=== PATIENT | male | born 1965 | race Caucasian/White ===

== ENCOUNTER 2024-09-23 17:27 | Emergency (ER) | payer BC, SELFPAY ==
[2024-09-23 17:42] VITALS: BP 160/77; PULSE 84; RESP 16; TEMP 36.4; O2SAT 98
--- NOTE | 2024-09-23 18:15 | DI.CT_ITS ---
Exam(s) CT HEAD CERVICAL SPINE WO EXAM: CT HEAD CERVICAL SPINE WO CLINICAL HISTORY: fall biking +HS + helmet +etoh normal neuro exam. TECHNIQUE: Imaging Protocol: Axial computed tomography images with coronal and sagittal reformatted images were created and reviewed COMPARISON: No exams were available for comparison FINDINGS: Head CT Ventricles and Extra axial spaces: Normal in size and morphology for the patient's age. Hemorrhage: None. Cerebral parenchyma: No evidence of mass or acute infarct. Midline shift: None. Brainstem/Cerebellum: Normal. Calvarium: Normal. Visualized Paranasal sinuses/Mastoids: Clear. Soft tissues: Unremarkable. Cervical Spine CT BONES: Vertebral body heights are maintained. Alignment is normal. There is no evidence of acute frac ture. Degenerative disc changes and facet degenerative changes are seen which are most prominent at C5-6 an d C6-7. There prominent anteriorly projecting osteophytes and severe disc space narrowing at these l evels.. SOFT TISSUES: No paraspinal hematoma. The airway appears intact. No pneumothorax is seen at the lung apices. Azygos lobe, normal variant. IMPRESSION: Head CT: No acute abnormality. C-spine CT: Degenerative changes, no acute abnormality. RADIATION DOSE DELIVERED: Total DLP DATA REPOSITORY: All CT scans at this facility are submitted to the National Radiology Data Registry (NRDR) Dose Index Registry (DIR) with the [employer] (ACR). RADIATION OPTIMIZATION: All CT scans at this facility use at least one of these dose optimization te chniques: automated exposure control; mA and/or kV adjustment per patient size (includes targeted exa ms where dose is matched to clinical indication); or iterative reconstruction.
--- NOTE | 2024-09-23 18:17 | ED.GENADUL_ITS ---
Discharge Plan Discharge Details Chief Complaint: Laceration Primary Care Provider: Shabnam,Local ED Provider: Brenda Recio Home Meds and New Rx's Prescriptions: No Action simvastatin 20 mg tablet 20 mg PO QHS [facility] General Mode of arrival: ambulatory . Date/Time Provider Initiated Documentation: 09/23/24 17:46 . Limitations to Documentation: no limitations . Information obtained by: patient . HPI Narrative: 59yo M with HLD presenting for laceration behind ear after fall mountain biking. + helmet. Thinks he struck his head on a tree branch or stick on the ground. No LOC. Bleeding coming from behind ear at the time of the event, has since stopped. Mild headache. No nausea or vomiting. Denies pain or injury elsewhere; no neck pain, chest pain, abdominal pain. No vertigo, numbness, tingling, or weakness. Did drink a beer after the fall. In his usual state of health before this event. Related Data Home Medications ?Medication ?Instructions ?Recorded ?Confirmed simvastatin 20 mg tablet 20 mg PO QHS 09/23/24 09/23/24 Allergies Allergy/AdvReac Type Severity Reaction Status Date / Time No Known Allergies Allergy Unverified 09/23/24 17:40 General Stated Complaint: Laceration GARETH: 4 Review of Systems Narrative: see HPI Exam Narrative Exam Narrative: GENERAL: Alert, no acute distress. SKIN: Warm and well perfused. HEAD: 1cm laceration behind left ear, hemostatic. Facial bones without deformities or tenderness. EYES: PERRL. No scleral icterus or conjunctival injection. Extraocular muscles intact without nystagmus or diplopia. EARS: No hemotympanum. NOSE: No discharge, tenderness, laxity. No nasal septal hematoma. MOUTH: No malocclusion or trismus. Moist mucus membranes without blood. NECK: Trachea midline. No discolorations or edema. No midline tenderness. CV: Regular rate and rhythm, Normal s1 and s2. No murmurs, rubs, or gallops. CHEST: Chest symmetric with respirations. No chest wall tenderness. Lungs are clear to auscultation bilaterally. ABDOMEN: Soft, nondistended, nontender. BACK:. Spine without bony tenderness, no step offs. PELVIC: Pelvis stable, nontender to lateral compression a MSK: No gross deformities or discolorations or lesions. Tolerates full range of motion of extremities without tenderness. NEURO: ? GCS 15.? PERRL.? EOMI.? Fluent speech, no dysarthria. Motor- 5/5 strength symmetric bilateral upper and lower extremities Sensation- ?Intact to light touch and symmetric multiple dermatomes including upper and lower extremities Coordination- No dysmetria on finger to nose Gait/station: ?Normal stance.? No truncal ataxia. Steady gait with equal normal steps CRANIAL NERVES: II: Pupils equal and reactive, III, IV, : EOM intact, no gaze preference or deviation, no nystagmus. V: normal sensation in V1, V2, and V3 segments bilaterally VII: no asymmetry, no nasolabial fold flattening VIII: normal hearing to speech IX, X: normal palatal elevation, no uvular deviation XI: 5/5 head turn and 5/5 shoulder shrug bilaterally XII: midline tongue protrusion Course Vital Signs Vital signs: Vital Signs Temperature 36.4 C L 09/23/24 17:42 Pulse 84 09/23/24 17:42 Respiratory Rate 16 09/23/24 17:42 Blood Pressure 160/77 H 09/23/24 17:42 Pulse Oximetry 98 09/23/24 17:42 Temperature 36.4 C L 09/23/24 17:42 Temperature Source Oral 09/23/24 17:42 Pulse 84 09/23/24 17:42 Respiratory Rate 16 09/23/24 17:42 Blood Pressure 160/77 H 09/23/24 17:42 Blood Pressure Position Sitting 09/23/24 17:42 Pulse Oximetry 98 09/23/24 17:42 Oxygen Delivery Method Room Air 09/23/24 17:42 Oxygen Flow Rate 0 09/23/24 17:42 Pain Level 6 09/23/24 17:42 Procedure Laceration Laceration 1: Date of Procedure: 09/23/24 Time of procedure: 19:15 Provider that performed the procedure: Brenda Recio Standard Time Out Performed: Yes Patient Consented: Verbally Site: scalp Side (If applicable): left Description: linear Depth: simple, single layer Local anesthetic: Lidocaine 2% Pre-repair:: wound explored, irrigated extensively and deep structures intact Skin layer closed with: nylon Suture size: 5-0 Number of sutures:: 4 Technique: simple, interrupted Complications: None Medical Decision Making 59yo M with HLD presenting for laceration behind ear after fall mountain biking. + helmet. Thinks he struck his head on a tree branch or stick on the ground. 1cm hemostatic laceration just behind left ear involving skin. No other significant traumatic findings on exam. Normal neurologic exam. Low suspicion for ICH or c-spine injury, however given that he has had ETOH prior to arrival will get ct head and c-spine. Laceration thoroughly irrigated and repaired. CT head and cspine independently reviewed; no ICH or displaced fractures on my view; radiology reads below with no acute findings. Discharged home; discharge instructions and return precautions were reviewed with patient who verbalized understanding. He is clinically sober. All questions were answered and he is in full agreement with the plan. Imaging Data Radiologic Study: Imaging: CT Scan Radiologist's impression: head: IMPRESSION: no acute intracranial findings c-spine: IMPRESSION: no cervical spinal fracture Quality:SDOH Health Related Social Needs: No Data to Display [facility] Social History Smoking/Tobacco Use Status: Never Smoking risk assessment performed?: Yes Alcohol Intake: current Alcohol Intake frequency: holidays/special occasions only Alcohol type: beer Drug use: Never Substance use type: does not use Housing: house Do you feel safe at home: Yes Do you feel safe in your relationship?: Yes
[2024-09-23] MEDS: Lidocaine 2% Multi-Dose 20 ML VIAL (18:54)
--- OUTSIDE RECORDS SUMMARY | 2024-09-23 19:03 | XMS_ITS | Encounter Summary ---
Author Organization [facility] Address [address] [place] [address] Care Team Providers Care Administrative Library Assistant Name Role Phone Poc, Not Required Pcp Or Unavailable Unavail able Jaimee Espitia Md Primary Care Provider [phone] Encounter Details Date Type Department Care Team ([facility] Contact Info) Description 05/31/2024 Email Encounter [facility] Campaign, Provider USED CAMPAIGNS FOR SYSTEM DEFINITIONS NON-PROVIDERS NON-PROVIDERS Get Your Flu Vaccine Now Social History Tobacco Use Types Packs/Day Years Used Date Smoking Tobacco: Never Smokeless Tobacco: Never Alcohol Use Standard Drinks/Week Comments Yes 0 (1 standard drink = 0.6 oz pur e alcohol) 3-4 per week Hunger Vital Sign Answer Date Recorded Within the past 12 months, y ou worried that your food would run out before you got the money to buy more. Never true 03/28/20 24 Within the past 12 months, t he food you bought just didn't last and you didn't have money to get more. Never true 03/28/2024 PRAPARE - Transportation Answer Date Re corded In the past 12 months, has l ack of transportation kept you from medical appointments or from getting medications? No 03/16 In the past 12 months, has l ack of transportation kept you from meetings, work, or from getting things needed for daily living? No 03/28/2024 Depression Answer Date Recorded Last PHQ-2 2 03/31/2024 Last PHQ-9 Not on file 03/31/2024 Suicidal Ideation/Self Harm Risk Not on file 03/31/2024 Housing Stability Answer Date Recorded What is your housing situation today? Has vikram matson 03/28/2024 Are you worried about losing your housing? No 03/28/[address] you li ve. Do you have problem with any of the following? (Choose all that apply) None of the Above Request Assistance Answer Date Recorded Would you like to discuss an y of the needs you identified in this survey with a member of your care team? No 2023 Urgent Assistance Needed Not on file 024 Social Isolation Answer Date Recorded How often do you feel lonely or isolated from th ose around you? Rarely 03/28/2024 Family Needs Answer Date Recorded In the past year, have you o r any family members that you live with been unable to get resources (utilities such as power, water, or phone service; clothing; childcare; medicine or other healthcare; employment; etc) when they were really needed? No needs 03/28/2024 Other Needs Not on file 03/28/2024 Safety Answer Date Recorded Do you feel physically and e motionally safe where you currently live? Yes 03/28/2024 Self-Management Confidence Answer Date Recorded How confident are you that y ou can control and manage most of your health problems? Please provide numerical response between 0 -10. 0 = Not at all confident, 10= Completely confident. 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 Not on file Not on file documented as of this encounter Plan of Treatment Upcoming Encounters Date Type Department Care Team (Late st Contact Info) Description 04/11/2025 8:00 AM EDT Office Visit [facility] [address] [place] [phone] Jaimee Espitia MD [address] [place] [phone] documented as of this encounter Visit Diagnoses Not on filedocumented in this encounter Care Teams Administrative Library Assistant Relationship Specialty Start Date End Date Poc, Not Required Pcp Or PCP - Payer 02/06/22 Jaimee Espitia MD [address] [place] [phone] PCP - General Family Medicine 03/01/23 documented as of this encounter
--- OUTSIDE RECORDS SUMMARY | 2024-09-23 19:03 | XMS_ITS | Encounter Summary ---
Author Organization [facility] Address [address] [place] [address] Care Team Providers Care Ship Scraper Name Role Phone Poc, Not Required Pcp Or Unavailable Unavail able Jaimee Espitia Md Primary Care Provider [phone]- [phone] Encounter Details Date Type Department Care Team (Late st Contact Info) Description 03/15/2023 11:50 AM EDT Telemedicine [facility] [address] [place] [phone] Tereza Robertson Pa-C [address] [place] [phone] COVID-19 virus infection (Primary Dx) Social History Tobacco Use Types Packs/Day Years Used Date Smoking Tobacco: Never Smokeless Tobacco: Never Alcohol Use Standard Drinks/Week Comments Yes 0 (1 standard drink = 0.6 oz pur e alcohol) 3-4 per week Sex and Gender Information Value Date Recorded Sex Assigned at Male 10/06/2019 9:20 AM EST Legal Sex Male 4:43 AM EDT Gender Identity Male 10/06/2019 9:20 AM EST Sexual Orientation Straight 10/06/2019 9: 20 AM EST 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 About nirmatrelvir/ritonavir (brand name Paxlovid): Nirmatrelvir/ritonavir (Paxlovid) is an investigational oral antiviral medication used to treat xgly-pe-qofddios COVID-19 in high risk patients. It is not a substitute for the COVID-19 vaccine. Treatment should begin as soon as possible and within 5 days of symptoms starting. It can reduce risk of hospitalization or from COVID-19 by 88%. Please take this medication exactly as I have instructed: Take 3 tablets (2 x 150 mg nirmatrelvir + 1 x 100 mg ritonavir) every 12 hours for 5 days. Nirmatrelvir/ritonavir (Paxlovid) may be taken with or without food. Swallow the tablets whole. Do not chew, break, or crush the tablets. If you miss a dose and it is within 8 hours of the usual scheduled time, take it as soon as you remember, then resume normal dosing schedule. If it is more than 8 hours from the usual scheduled time,then skip the missed dose and resume at the next scheduled dose. Common side effects from nirmatrelvir/ritonavir (Paxlovid) include change in taste, diarrhea, muscle aches, and/or high blood pressure. Do not stop treatment without first discussing with me, even ifyou feel better. Nirmatrelvir/ritonavir (Paxlovid) can interact with many medications, including cnqh-kxy-cvqfbdw drugs. Make sure to review your current prescription and cdgr-vld-jvfapoy medications with me prior totaking. This medication may make hormone-based control less effective at preventing . If youare on a hormone-based control, it is recommended that you use additional barrier contraceptive (such as a condom) or refrain from sexual activity while taking nirmatrelvir/ritonavir (Paxlovid). There is no data available for nirmatrelvir/ritonavir (Paxlovid) use in and . If you are currently , the benefit of treatment may be greater than the risk. Discuss youroptions with me. If you experience any of the following symptoms, please contact my office or seek medical attentionright away: Skin rash or itching, skin blistering or peeling, swelling of the face or tongue Difficulty breathing or swallowing Chest pain or tightness Very bad headache, dizziness or passing out documented in this encounter Ordered Prescriptions Prescription Sig Dispense Quantity Refills Last Filled Start Date End Date nirmatrelvir-nupur navir (PAXLOVID) 300 mg (150 mg x 2)-100 mg therapy packIndications:C OVID-19 virus infection Take 3 tablets by mouth every 12 hours for 5 days (take one 100 mg ritonavir tablet at the same time with two 150 mg nirmatrelvir tablets for each dose.) 30 tablet 03/15/2023 3 nirmatrelvir-nupur navir (PAXLOVID) 300 mg (150 mg x 2)-100 mg therapy packIndications:C OVID-19 virus infection Take 3 tablets by mouth every 12 hours for 5 days (take one 100 mg ritonavir tablet at the same time with two 150 mg nirmatrelvir tablets for each dose.) 30 tablet 03/15/2023 3 documented in this encounter Progress Notes * Tereza Robertson Pa-C - 03/15/2023 11:50 AM EDT Chalino Boyer is a 57 year old established patient who presents for a video visit. CC/Reason for Visit: Covid infection Subjective HPI/Current issues or questions: Chalino is a 57-year-old male patient of Jaimee Espitia MD presenting today for COVID infection. Patient recently traveled to [place] for 1 week bike trip, at the end of his trip started to develop a runny nose. Reports he flew home yesterday, started to have body aches and chills on the airplane, felt freezing. Tested himself for COVID yesterday evening, positive. Reports last night he had body aches, chills, fever of 101 and night sweats. Started to develop a dry, nonproductive cough. He has been taking Tylenol and Advil with improvement of symptoms. Reports cough is not keeping him up at nighttime. He is fully vaccinated. Reports his temperature this morning was 99. Reports he has a lot of fatigue, feels like he needs to sleep throughout the whole day. He denies any hemoptysis, wheezing or shortness of breath. No sore throat. No GI symptoms currently. ADDITIONAL INFORMATION: -None Objective PHYSICAL EXAM (conducted over live, two way video) Patient reported vitals: There were no vitals taken for this visit. Estimated body mass index is 35.53 kg/m?? as calculated from the following: Height as of 11/27/20: 5' 8.05 (1.728 m). Weight as of 02/09/22: 234 lb (106.1 kg). General Appearance: well appearing, alert, comfortable, cooperative, and oriented Other Physical Exam: Respiratory: --Respiratory rate and effort are normal, speaks in full sentences ADDITIONAL DATA: Procedure Value Date eGFR >60 02/09/2022 Assessment ASSESSMENT / PLAN / DISCUSSION WITH PATIENT: 1. COVID-19 virus infection Patient appears well via video visit today, no acute distress, nontoxic- appearing, no conversational dyspnea, speaking in full sentences. Patient tested positive for covid yesterday, x2 days of symptoms at present time. We did discuss oral paxlovid therapy at length today. Discussed the common side effects of paxlovidand the likelihood of rebound symptoms. Advised patient he does qualify for the oral antiviral therapy. After discussion, patient is interested in oral antiviral therapy. Advised patient he needs to STOP TAKING SIMVASTATIN x5 DAYS while taking paxlovid and additional 5 days afterwards. He can use Tylenol and Advil alternating every 6-8 hours PRN. Can also use aloq-ymr-cxcqnbq cough medication such as Delsym or Robitussin as instructed by packaging. Advised patient not to exceed 8848-7411 mg Tylenol per day or 1500 mg of advil per day. Advised patient if he does develop any new or worsening symptoms despite treatment to call office for reevaluation or seek medical attention. Patient verbalized understanding of all instructions and agrees with plan. - nirmatrelvir-ritonavir (PAXLOVID) 300 mg (150 mg x 2)-100 mg therapy pack; Take 3 tablets by mouth every 12 hours for 5 days (take one 100 mg ritonavir tablet at the same time with two 150 mg nirmatrelvir tablets for each dose.) Dispense: 30 tablet; Refill: 0 Other Information: see AVS FOLLOW UP: if symptoms worsen Attestation Social Determinants of Health Limiting diagnosis or treatment (if any):none. Time Spent: I spent 20 minutes caring for the patient today including time spent during the visit and time spent outside of the visit. Patient location: home. The patient stated they were physically in [place] at the time of thevisit. I conducted this virtual visit from the office. documented in this encounter Plan of Treatment Upcoming Encounters Date Type Department Care Team (Late st Contact Info) Description 04/11/2025 8:00 AM EDT [facility] [address] [place] [phone] Jaimee Espitia MD [address] [place] [phone] documented as of this encounter Visit Diagnoses Diagnosis COVID-19 virus infection- Primary documented in this encounter Discontinued Medications Medication Sig Discontinue Reason Start Date End Da te nirmatrelvir-ritonavi r (PAXLOVID) 300 mg (150 mg x 2)-100 mg therapy packIndications:COVID -19 virus infection Take 3 tablets by mouth every 12 hours for 5 days (take one 100 mg ritonavir tablet at the same time with two 150 mg nirmatrelvir tablets for each dose.) Change in Pharmacy 03/15/2023 03/15/2023 documented as of this encounter Care Teams Ship Scraper Relationship Specialty Start Date End Date Poc, Not Required Pcp Or PCP - Payer 02/06/22 Jaimee Espitia MD [address] [place] [phone] PCP - General Family Medicine 03/01/23 documented as of this encounter
--- OUTSIDE RECORDS SUMMARY | 2024-09-23 19:03 | XMS_ITS | Encounter Summary ---
Author Organization [facility] Address [address] [place] [address] Care Team Providers Care Social Services Analyst Name Role Phone Poc, Not Required Pcp Or Unavailable Unavail able Jaimee Espitia Md Primary Care Provider [phone]- [phone] Encounter Details Date Type Department Care Team ([facility] st Contact Info) Description 07/20/2023 Email Encounter [facility] [address] [place] [phone] Online, [employer] USED BY [employer] TO CREATE USER MESSAGE ENCOUNTERS BY NON-PROVIDERS stress test Social History Tobacco Use Types Packs/Day Years [...] the money to buy more. Never true 03/26/20 23 Within the past 12 months, t he food you bought just didn't last and you didn't have money to get more. Never true 03/26/2023 PRAPARE - Transportation Answer Date Re corded In the past 12 months, has l ack of transportation kept you from medical appointments or from getting medications? No 03/16 In the past 12 months, has l ack of transportation kept you from meetings, work, or from getting things needed for daily living? No 03/26/2023 Depression Answer Date Recorded Last PHQ-2 1 03/26/2023 Last PHQ-9 Not on file 03/26/2023 Suicidal Ideation/Self Harm Risk Not on file 03/26/2023 Housing Stability Answer Date Recorded What is your housing situation today? Has vikram matson 03/26/2023 Are you worried about losing your housing? No 03/26/[address] you li ve. Do you have problem with any of the following? (Choose all that apply) None of the Above 06/2023 Request Assistance Answer Date Recorded Would you like to discuss an y of the needs you identified in this survey with a member of your care team? No 2022 Urgent Assistance Needed Not on file 023 Social Isolation Answer Date Recorded How often do you feel lonely or isolated from th ose around you? Rarely 03/26/2023 Family Needs Answer Date Recorded In the past year, have you o r any family members that you live with been unable to get resources (utilities such as power, water, or phone service; clothing; childcare; medicine or other healthcare; employment; etc) when they were really needed? No needs 03/26/2023 Other Needs Not on file 03/26/2023 Safety Answer Date Recorded Do you feel physically and e motionally safe where you currently live? Yes 03/26/2023 Self-Management Confidence Answer Date Recorded How confident are you that y ou can control and manage most of your health problems? Please provide numerical response between 0 -10. 0 = Not at all confident, 10= Completely confident. 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 on file Not on file documented as of this encounter Plan of Treatment Upcoming Encounters Date Type Department Care Team (Late st Contact Info) Description 04/11/2025 8:00 AM EDT Office Visit [facility] [address] [place] [phone] Jaimee Espitia MD [address] [place] [phone] documented as of this encounter Visit Diagnoses Not on filedocumented in this encounter Care Teams Social Services Analyst Relationship Specialty Start Date End Date Poc, Not Required Pcp Or PCP - Payer 02/06/22 Jaimee Espitia MD [address] [place] [phone] PCP - General Family Medicine 03/01/23 documented as of this encounter
--- OUTSIDE RECORDS SUMMARY | 2024-09-23 19:03 | XMS_ITS | Encounter Summary ---
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 file Not on file documented as of this encounter Plan of Treatment Upcoming Encounters Date Type Department Care Team ([facility] Contact Info) Description 04/11/2025 8:00 AM EDT Office Visit [facility] 2 [place] [phone] Jaimee Espitia MD 2 [place] [address] documented as of this encounter Visit Diagnoses Not on filedocumented in this encounter Care Teams Supervisor Photostat Relationship Specialty Start Date End Date Poc, Not Required Pcp Or PCP - Payer 02/06/22 Jaimee Espitia MD 2 [place] [address] PCP - General Family Medicine 03/01/23 documented as of this encounter
--- OUTSIDE RECORDS SUMMARY | 2024-09-23 19:03 | XMS_ITS | Encounter Summary ---
Author Organization [facility] Address [address] [facility] [address] [facility] [address] [place] [address] Care Team Providers Care Audience Development Manager Name Role Phone Poc, Not Required Pcp Or Unavailable Unavail able Jaimee Espitia Md Primary Care Provider [phone]- [phone] Reason for Visit * Reason Comments Prescription Assistance Return Call/ Call Back Encounter Details Date Type Department Care Team (Late st Contact Info) Description 03/30/2023 Telephone [facility] 2 [place] [address] [facility], /[place] [address] Otitis of Left Ear (Primary Dx) Social History Tobacco Use Types [...] 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 Not on file documented as of this encounter Ordered Prescriptions Prescription Sig Dispense Quantity Refills Last Filled Start Date End Date amoxicillin 500 mg capsuleIndications :Otitis of left ear Take 2 capsules by mouth three times daily for 5 days 30 capsule 03/31/2023 3 documented in this encounter Plan of Treatment Upcoming Encounters Date Type Department Care Team (Late st Contact Info) Description 04/11/2025 8:00 AM EDT Office Visit [facility] 2 [place] [address] Jaimee Espitia MD 2 [place] [address] documented as of this encounter Visit Diagnoses Diagnosis Otitis of left ear- Primary documented in this encounter Care Teams Audience Development Manager Relationship Specialty Start Date End Date Poc, Not Required Pcp Or PCP - Payer 02/06/22 Jaimee Espitia MD 2 [place] [address] PCP - General Family Medicine 03/01/23 documented as of this encounter
--- OUTSIDE RECORDS SUMMARY | 2024-09-23 19:03 | XMS_ITS | Encounter Summary ---
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 file Not on file documented as of this encounter Plan of Treatment Upcoming Encounters Date Type Department Care Team (Late st Contact Info) Description 04/11/2025 8:00 AM EDT Office Visit [facility] 2 [place] [address] Jaimee Espitia MD 2 [place] [address] documented as of this encounter Visit Diagnoses Not on filedocumented in this encounter Care Teams 911 Operator Relationship Specialty Start Date End Date Poc, Not Required Pcp Or PCP - Payer 02/06/22 Jaimee Espitia MD [address] [place] [address], [place] [address] PCP - General Family Medicine 03/01/23 documented as of this encounter
--- OUTSIDE RECORDS SUMMARY | 2024-09-23 19:03 | XMS_ITS | Encounter Summary ---
Author Organization [facility] Address [address] [facility] [address] [place] [address] Care Team Providers Care Presales Consultant Name Role Phone Poc, Not Required Pcp Or Unavailable Unavail able Jaimee Espitia Md Primary Care Provider +1- [phone] Reason for Referral * Specialty (Non Urgent - w/in 3 Months) - Auth Not Needed Specialty Diagnoses / Procedures Referred By Contsaman t Referred To Contact Dermatology Diagnoses FH: melanoma Jaimee Espitia MD 2 [place] [address] Phone: tel: fax: Rod Mckenzie [facility] [address] [facility] [address] [place] [address] Phone: tel: fax: Referral ID Status Reason Start Date Expiration Date V isits Requested Visits Authorized [id number] Auth Not Needed Access 03/31/2024 04/01/2025 3 3 Reason for Visit * Reason Comments Complete Physical Exam Encounter Details Date Type Department Care Team ([facility] st Contact Info) Description 03/31/2024 8:00 AM EDT Office Visit [facility] 2 [place] [address] Jaimee Espitia MD 2 [place] [address] PE (physical exam), annual (Primary Dx); FH: melanoma; Prediabetes Social History Tobacco Use Types Packs/Day Years Used Date Smoking Tobacco: Never Smokeless Tobacco: Never Tobacco Cessation:Counseling Given: Not Answered Alcohol Use Standard Drinks/Week Comments Yes 0 [...] 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 Not on file documented as of this encounter Last Filed Vital Signs Vital Sign Reading Time Taken Comments Blood Pressure - - Pulse 70 03/31/2024 7:55 AM EDT Temperature - - Respiratory Rate - - Oxygen Saturation 98% 03/31/2024 7:55 AM EDT Inhaled Oxygen Concentration - - Weight 108.4 kg (239 lb) 03/31/2024 7:55 AM EDT Height 176.5 cm (5' 9.5) 03/31/2024 7:55 AM EDT Body Mass Index 34.79 03/31/2024 7:55 AM EDT documented in this encounter Progress Notes * Jaimee Espitia MD - 03/31/2024 8:00 AM EDT HPI Here for a pe Gerd --occasionally Active but too heavy --he says he eats a lot of carbs but is willing to try a low-carb diet. Review of Systems Constitutional: Negative. Respiratory: Negative. Negative for cough and shortness of breath. Cardiovascular: Negative. Negative for chest pain and leg swelling. Gastrointestinal: Negative. Negative for abdominal pain. Genitourinary: Negative. Psychiatric/Behavioral: Negative for dysphoric mood. The patient is not nervous/anxious. Current Outpatient Medications Medication Sig simvastatin 20 mg tablet Take 1 tablet by mouth daily MEN'S MULTI-VITAMIN ORAL Take 1 tablet by mouth daily BP (P) 120/72 Pulse 70 Ht 5' 9.5 (1.765 m) Wt 239 lb (108.4 kg) SpO2 98% BMI 34.79 kg/m?? PE Physical Exam Constitutional: General: He is not in acute distress. Appearance: Normal appearance. He is not ill-appearing. HENT: Right Ear: Tympanic membrane, ear canal and external ear normal. Left Ear: Tympanic membrane, ear canal and external ear normal. Nose: Nose normal. Mouth/Throat: Mouth: Mucous membranes are moist. Eyes: Conjunctiva/sclera: Conjunctivae normal. Pupils: Pupils are equal, round, and reactive to light. Cardiovascular: Rate and Rhythm: Normal rate and regular rhythm. Heart sounds: Normal heart sounds. No murmur heard. No friction rub. No gallop. Pulmonary: Effort: Pulmonary effort is normal. Breath sounds: Normal breath sounds. Abdominal: General: Abdomen is flat. There is no distension. Palpations: There is no mass. Tenderness: There is no abdominal tenderness. There is no guarding or rebound. Hernia: No hernia is present. Genitourinary: Prostate: Normal. Rectum: Normal. Musculoskeletal: Cervical back: Normal range of motion and neck supple. No rigidity or tenderness. Lymphadenopathy: Cervical: No cervical adenopathy. Skin: General: Skin is warm. Findings: No lesion or rash. Neurological: General: No focal deficit present. Mental Status: He is alert and oriented to person, place, and time. Psychiatric: Mood and Affect: Mood normal. Behavior: Behavior normal. A/P Diagnoses and all orders for this visit: PE (physical exam), annual--we talked about a low-carb diet plan Wednesday through Wednesday and then a little more laxity on the weekends. He is already active. We talked about medications but I do not think we should do that right now he agrees. - LIPID PROFILE; Future - HEPATIC FUNCTION PROFILE; Future - BASIC METABOLIC PROFILE; Future FH: melanoma I did not see anything but I think it is a good idea for him to see dermatology.-- - REFERRAL TO DERMATOLOGY Prediabetes-check hemoglobin A1c and a BMP. - HEMOGLOBIN A1C; Future - BASIC METABOLIC PROFILE; Future documented in this encounter Plan of Treatment Upcoming Encounters Date Type Department Care Team (Late st Contact Info) Description 04/11/2025 8:00 AM EDT Office Visit [place] 2 [place] [address] Jaimee Espitia MD 2 [place] [address] Scheduled Referrals Name Type Priority Associated Diagnoses Orde r Schedule REFERRAL TO DERMATOLOGY REFERRAL/FUTURE Routine FH: melanoma Ordered: 03/31/2024 documented as of this encounter Results * HEPATIC FUNCTION PROFILE (03/31/2024 8:28 AM EDT) TOTAL PROTEIN 6.7 6.0 - 8.9 g/dL 03/31/2024 12:54 PM EDT [facility] DEPARTMENT OF PATHOLOGY AND LAB MEDICINE ALBUMIN 4.5 3.2 - 5.1 g/dL 03/31/2024 12:54 PM EDT [facility] DEPARTMENT OF PATHOLOGY AND LAB MEDICINE BILIRUBIN TOTAL 0.5 0.1 - 1.3 mg/dL 03/31/2024 12:54 PM EDT [facility] DEPARTMENT OF PATHOLOGY AND LAB MEDICINE BILIRUBIN DIRECT 0.10 <=0.60 mg/dL 03/31/2024 12:54 PM EDT [facility] DEPARTMENT OF PATHOLOGY AND LAB MEDICINE SGPT (ALT) 17 2 - 60 U/L 03/31/2024 12:54 PM EDT [facility] DEPARTMENT OF PATHOLOGY AND LAB MEDICINE SGOT (AST) 18 2 - 50 U/L 03/31/2024 12:54 PM EDT [facility] DEPARTMENT OF PATHOLOGY AND LAB MEDICINE ALKALINE PHOSPHATASE 50 38 - 125 U/L 03/31/2024 12:54 PM EDT [facility] DEPARTMENT OF PATHOLOGY AND LAB MEDICINE Blood (Blood, Venous) Venipuncture / Unknown 03/31/2024 8:28 AM EDT 03/31/2024 8:28 AM EDT us Jaimee Espitia GENERAL LAB Final Resu lt [facility] DEPARTMENT OF PATHOLOGY AND LAB MEDICINE [address] [place] [address] documented in this encounter Visit Diagnoses Diagnosis PE (physical exam), annual- Primary Routine general medical examination at a health care facility FH: melanoma Family history of other specified malignant neoplasm Prediabetes Other abnormal glucose documented in this encounter Orders Lab Orders Without Results Count Last Ordered D ate First Ordered Date HEMOGLOBIN A1C 1 03/31/2024 LIPID PROFILE 1 03/31/2024 documented in this encounter Care Teams Presales Consultant Relationship Specialty Start Date End Date Poc, Not Required Pcp Or PCP - Payer 02/06/22 Jaimee Espitia MD [address] [place] [address] PCP - General Family Medicine 03/01/23 documented as of this encounter
--- OUTSIDE RECORDS SUMMARY | 2024-09-23 19:03 | XMS_ITS | Encounter Summary ---
Author Organization [facility] Address [address] [facility] [facility] [address] [place] [address] Care Team Providers Care Windscreen Fitter Name Role Phone Poc, Not Required Pcp Or Unavailable Unavail able Jaimee Espitia Md Primary Care Provider [phone] Reason for Visit * Reason Comments Heartburn Encounter Details Date Type Department Care Team ([facility] Contact Info) Description 07/12/2023 Telephone [place] [address] [place] [phone] [facility], /[place], [place] [id number] HEARTBURN Social History Tobacco Use Types Packs/Day Years [...] 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 Not on file documented as of this encounter Plan of Treatment Upcoming Encounters Date Type Department Care Team (Late st Contact Info) Description 04/11/2025 8:00 AM EDT Office Visit [place] [facility] 2 [place] [address] Jaimee Espitia MD 2 [place] [address] documented as of this encounter Visit Diagnoses Not on filedocumented in this encounter Care Teams Windscreen Fitter Relationship Specialty Start Date End Date Poc, Not Required Pcp Or PCP - Payer 02/06/22 Jaimee Espitia MD 2 [place] [address] PCP - General Family Medicine 03/01/23 documented as of this encounter
--- OUTSIDE RECORDS SUMMARY | 2024-09-23 19:03 | XMS_ITS | Encounter Summary ---
Author Organization [facility] Address [address] [facility] [facility] [address] [place] [address] Care Team Providers Care Configuration Release Manager Name Role Phone Rufina Sims Md Primary Care Provider [phone] Poc, Not Required Pcp Or Unavailable Unavail able Poc, Not Assigned Pcp Or Primary Care Provider U navailable Encounter Details Date Type Department Care Team (Late Contact Info) Description 08/26/2022 Email Encounter [facility] 2 [place] [address] Online, [employer] USED BY [employer] TO CREATE USER MESSAGE ENCOUNTERS BY NON-PROVIDERS Reminder - PCP Departure Social History Tobacco Use Types Packs/Day Years [...] 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 on file Not on file documented as of this encounter Plan of Treatment Upcoming Encounters Date Type Department Care Team (Late Contact Info) Description 04/11/2025 8:00 AM EDT Office Visit [place] Internal Medicine 2 [place] [address] Jaimee Espitia MD 2 [place] [address] documented as of this encounter Visit Diagnoses Not on filedocumented in this encounter Care Teams Configuration Release Manager Relationship Specialty Start Date End Date Rufina Sims MD 2 [place] [address] PCP - General Internal Medicine 02/02/18 09/22/22 Poc, Not Required Pcp Or PCP - Payer 02/06/22 Poc, Not Assigned Pcp Or PCP - General 09/23/22 02/28/23 documented as of this encounter
--- OUTSIDE RECORDS SUMMARY | 2024-09-23 19:03 | XMS_ITS | Encounter Summary ---
Author Organization [facility] Address [address] [facility] [address] [place] [address] Care Team Providers Care Seed Tester Name Role Phone Poc, Not Required Pcp Or Unavailable Unavail able Jaimee Espitia Md Primary Care Provider [phone] Reason for Visit * Reason Comments Immunization Encounter Details Date Type Department Care Team ([facility] Contact Info) Description 07/19/2023 Email Encounter [facility] [address] [place] [address] Ana María Duval Pa-C [address] [place] [address] Flu and Covid Vaccine Social History Tobacco Use Types Packs/Day Years [...] 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 Not on file documented as of this encounter Plan of Treatment Upcoming Encounters Date Type Department Care Team (Late st Contact Info) Description 04/11/2025 8:00 AM EDT Office Visit [facility] [address] [place] [address], [place] [address] Jaimee Espitia MD [address] [place] [address] documented as of this encounter Visit Diagnoses Not on filedocumented in this encounter Care Teams Seed Tester Relationship Specialty Start Date End Date Poc, Not Required Pcp Or PCP - Payer 02/06/22 Jaimee Espitia MD [address] [place] [address] PCP - General Family Medicine 03/01/23 documented as of this encounter
--- OUTSIDE RECORDS SUMMARY | 2024-09-23 19:03 | XMS_ITS | Encounter Summary ---
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 Not on file documented as of this encounter Plan of Treatment Upcoming Encounters Date Type Department Care Team (Late Contact Info) Description 04/11/2025 8:00 AM EDT Office Visit [facility] 2 [place] [address] Jaimee Espitia MD 2 [place] [address] documented as of this encounter Visit Diagnoses Not on filedocumented in this encounter Care Teams Fibre Technologist Relationship Specialty Start Date End Date Poc, Not Required Pcp Or PCP - Payer 02/06/22 Jaimee Espitia MD [address] [place] [phone] PCP - General Family Medicine 03/01/23 documented as of this encounter
--- OUTSIDE RECORDS SUMMARY | 2024-09-23 19:03 | XMS_ITS | Clinical Summary ---
Author Organization [facility] Address [address] [place] [address] Care Team Providers Care Hansard Reporter Name Role Phone Poc, Not Required Pcp Or Unavailable Unavail able Jaimee Espitia Md Primary Care Provider [phone] Allergies No known active allergies Medications * This document contains information received from the source organization and may not represent a complete record from that organization. MEN'S MULTI-VITAMIN ORAL Take 1 tablet by mouth daily Active simvastatin 20 mg tabletIndication s:Hyperlipidemia LDL goal <130 Take 1 tablet by mouth daily 90 tablet 3 07/31/2024 Active Active Problems Problem Noted Date Diagnosed Date COVID 02/09/2022 Overview (02/09/2022): 12/2021- mild Vitamin D deficiency 03/21/2020 Prostate cancer screening en counter, options and risks discussed 02/17/2017 Overview (02/17/2017): Per discussion with patient on 02/17/2017 of risks/benefits, pt would like annual PSA screen Family history of thyroid disease in sister 12/2016 Overview (02/20/2017): Annual TSH w/ reflex; AntiTPO AB neg 02/2017 Assessment & Plan (02/17/2017 12:56 PM EDT): Pt with thyroid disease in sister. -TSH w/ reflex, check Anti-TPO AB Family history of diabetes mellitus (DM) 017 Overview (02/17/2017): Annual A1c Assessment & Plan (02/17/2017 12:55 PM EDT): Pt with elevated blood sugar in 2015 and family history of DM. -A1c q12 mo Spondylolisthesis of lumbar region 01/26/2017 Obesity (BMI 30.0-34.9) 12/12/2015 Assessment & Plan (02/17/2017 12:58 PM EDT): Pt with obesity, BMI 33. -Encouraged calorie tracking with free smart phone maia -Encouraged goal weight loss 1 pound per wk -Reviewed healthy plate -Encouraged regular exercise -Consider checking vit D -Pt to try to schedule with nutrition, previously referred -Handouts given to consider QSYMIA, Contrave at pt request; he will schedule a follow-up if he would like to discuss more about these medications Hyperlipidemia LDL goal <130 12/12/2015 Overview (08/25/2018): Stable on simvastatin 10 mg. Will do lipids today. Assessment & Plan (02/17/2017 12:56 PM EDT): Pt with pmhx of HLD. Pt is compliant with medications. -Goal LDL <130 -Continue Simvastatin -Encourage low saturated/trans fat diet. -ALT q12 mo, lipids q1-5 years Primary osteoarthritis involving multiple joints 12/12/2015 Overview (02/09/2022): Knees (replaced), shoulder, lumbar spine.seen ortho. He bikes to work daily, mountain bikes on the weekends. Assessment & Plan (02/17/2017 1:00 PM EDT): Pt with OA in bilateral knees and back. States that pain is starting to interfere with his life at this time. Has been told that he might need knee replacements in the past. Has seen PT in the past. -Referral to ortho for knee, back pain; previously evaluated at Orthopedics -Consider PT -Referral to pain clinic for his back -Rx Voltaren gel PRN -Discussed OTC supportive measures Reduced libido 03/29/2014 Overview (07/19/2023): Reduced libido Resolved Problems Problem Noted Date Diagnosed Date Resolved Date History of bilateral knee replacement 03/21/2020 02/09/2022 Encounters Date Type Department Care Team Description 07/03/2024 11:40 AM EST Office Visit [facility] [address] [phone] Moises Gallegos MD Acute bronchitis due to other specified organisms (Primary Dx) 07/02/2024 Telephone Adult [facility] [address] [place] [address] Maisha Sandy LPN COUGH from Last 3 Months Immunizations Name Administration Dates Next Due COVID-19 (MODERNA) Vaccine, 50 mcg/0.5 mL, Bivalent, 12 YRS+ 06/28/2022 COVID-19 (PFIZER) Vaccine, 30mcg/0.3mL, 12YRS+, Diluent Reconstituted, IM 07/21/2021,12/09/2020,11/18/2020 Influenza Vaccine (Unspecifi ed Formulation) 06/16/2018 Influenza Vaccine Recomb, 18 YRS+, Egg Free, Single Dose Syringe, 0.5 mL (FLUBLOK) 05/08/2020 Influenza Vaccine, 6MOS+, Si ngle Dose, 0.5 mL (Flulaval/Fluzone) 07/19/2023,06/23/2022,06/18/2021, 019 TdaP 03/26/2022,03/23/2016,03/09/2011 Zoster Subunit (Shingles) Va ccine (HZ/Woody), Shingrix 02/09/2022,06/18/2021 Surgical History Surgery Date Site/Laterality Comments PAST SURGICAL HISTORY OF: 1980s R Shoulder PAST SURGICAL HISTORY OF: 08/16/1990 Anal Fistula/Abscess PAST SURGICAL HISTORY OF: 08/16/2005 Arthroscopic Surgery for Meniscus PAST SURGICAL HISTORY OF: 08/16/2007 Ulnar Nerve Entrapment ARTHROPLASTY - KNEE 08/16/2019 - 08/15/2020 Bilateral Medical History Medical History Date Comments Pneumonia 1994 Hospitalized X 5 days History of bilateral knee replacement 03/21/2020 Family History Medical History Relation Comments Cancer - melanoma Father Colon polyp Father Diabetes - type II Father Diverticulitis Father Hyperlipidemia Father Hypertension Father Psych - depression Mother head injury Mother Thyroid disorder Sister CAD/PVD - early Neg HX Cancer - breast Neg HX Cancer - colon Neg HX Cancer - ovarian Neg HX Cancer - prostate Neg HX Relation Status Comments Father Alive Mother Alive Paternal Grandfather (Age 67) Lymphoma Paternal Grandmother (Age 60s) Parkinso n's Disease Sister Alive Social History Tobacco Use Types Packs/Day Years [...] 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 Not on file Obstetrics History Last Filed Vital Signs Vital Sign Reading Time Taken Comments Blood Pressure 122/70 07/03/2024 11:52 AM EST Pulse 70 07/03/2024 11:52 AM EST Temperature 36.9 ??C (98.4 ??F) 07/03/2024 11:[address] Respiratory Rate 18 04/16/2019 1:27 PM EDT Oxygen Saturation 98% 07/03/2024 11:52 AM EST Inhaled Oxygen Concentration - - Weight 110.7 kg (244 lb) 07/03/2024 11:52 AM EST Height 176.5 cm (5' 9.5) 03/31/2024 7:55 AM EDT Body Mass Index 35.52 03/31/2024 7:55 AM EDT Plan of Treatment Upcoming Encounters Date Type Department Care Team (Late st Contact Info) Description 04/11/2025 8:00 AM EDT Office Visit [facility] [address] [place] [phone] Jaimee Espitia MD [address] [place] [phone] Health Maintenance Due Date Last Done Comments HEP B INITIAL SCREENING 1982 PNEUMOCOCCAL VACCINE(S) 50+ (1 of 1 - PCV) 2014 COVID-19 Vaccine (5 - 2023- season) 2024 06/28/2022, 07/21/2021, 12/09/2020, Additional history exists FLU SEASONAL (#1) 04/16/2024 07/19/2023, 06/23/2022, 06/18/2021, Additional history exists * A1C TEST - Q1Y PREDIABETES 03/31/2025 03/31/2024, 03/29/2023, 11/27/2020, Additional history exists * LIPID PROFILE 03/31/2025 03/31/2024, 03/16, 02/09/2022, Additional history exists PERIODIC HEALTH REVIEW 03/31/2025 03/31/2024 PSA SCREENING 03/31/2025 03/31/2024, 03/16, 02/09/2022, Additional history exists COLORECTAL SCREENING : COLONOSCOPY 5 YEAR 03/28/2026 03/28/2021, 01/09/2016, 01/03/2016 DTAP/TDAP/TD VACCINE (4 - Td or Tdap) 03/26/2032 03/26/2022, 03/23/2016, 03/09/2011 HEP C SCREENING Completed 02/17/2017 HIV SCREENING Completed 02/17/2017 ZOSTER VACCINE Completed 02/09/2022, 06/18/2021 HAEMOPHILUS INFLUENZA VACCINE Aged Out No longer eligible based on patient's age to complete this topic HEPATITIS A VACCINE Aged Out No longe r eligible based on patient's age to complete this topic HEPATITIS B VACCINE Aged Out No longe r eligible based on patient's age to complete this topic PNEUMOCOCCAL VACCINE(S) Aged Out No l onger eligible based on patient's age to complete this topic POLIO VACCINE Aged Out No longer elig ible based on patient's age to complete this topic RSV Vaccine //toddler Aged Out No longer eligible based on patient's age to complete this topic Procedures Procedure Name Priority Date/Time Associated Diagnosis Comments (PSA) PROSTATIC ANTIGEN TOTAL ONLY Routine 03/31/2024 8:28 AM EDT Screening for prostate cancer LIPID PROFILE Routine 03/31/2024 8:28 AM EDT Hyperlipidemia LDL goal <130 HEMOGLOBIN A1C Routine 03/31/2024 8:28 AM EDT Prediabetes HEPATITIS C ANTIBODY Routine 02/17/2017 11:51 AM EDT Need for hepatitis C screening test HIV 1/2 ANTIGEN / ANTIBODY 4TH GENERATION W/REFLEX Routine 02/17/2017 11:51 AM EDT Encounter for well adult exam with abnormal findings COLONOSCOPY - POLYPECTOMY Routine 01/09/2016 1:48 PM EDT Screening for colon cancer Colonic polyp from Last 3 Months or Most Recently Relevant to Health Maintenance Results * (PSA) PROSTATIC ANTIGEN TOTAL ONLY (03/31/2024 8:28 AM EDT) PROSTATIC ANTIGEN 0.77 <=4.00 ng/mL 03/31/2024 12:41 PM EDT [facility] DEPARTMENT OF PATHOLOGY AND LAB MEDICINE Comment: PSA Result ?Probability of Cancer in Men with Negative ??(ng/mL) ? Digital Rectal Exam (HJON) ?0-2 ? 1% ?2-4 ?15% ?4-10 ? 25% ?>10 ?50% Serum PSA concentrations, regardless of value, should not be interpreted as definitive evidence for the presence or absence of cancer. ?? The optimal PSA threshold for biopsy has not been established. Prostate biopsy is required for the diagnosis of cancer. This test was performed using the [employer] Chemiluminescence Immunoassay at [employer]. Blood (Blood, Venous) Venipuncture / Unknown 03/31/2024 8:28 AM EDT 03/31/2024 8:28 AM EDT us Jaimee Espitia GENERAL LAB Final Resu lt Performing Organization Address [facility]/ZIP Co de Phone Number [facility] OF [facility] AND [facility] [address] [place] [address] * (ABNORMAL) LIPID PROFILE (03/31/2024 8:28 AM EDT) CHOLESTEROL 218(H) <=199 mg/dL 03/31/2024 12:54 PM EDT [facility] DEPARTMENT OF PATHOLOGY AND LAB MEDICINE HDL 47 >=41 mg/dL 03/31/2024 12:54 PM EDT [facility] DEPARTMENT OF PATHOLOGY AND LAB MEDICINE CHOL/HDL RATIO 4.6 <=4.9 03/31/2024 12:54 PM EDT [facility] DEPARTMENT OF PATHOLOGY AND LAB MEDICINE LDL 117.8 <=130 mg/dL 03/31/2024 12:54 PM EDT [facility] DEPARTMENT OF PATHOLOGY AND LAB MEDICINE TRIGLYCERIDES 266(H) <=149 mg/dL 03/31/2024 12:54 PM EDT [facility] DEPARTMENT OF PATHOLOGY AND LAB MEDICINE FASTING STATUS Fasting 03/31/2024 12:54 PM EDT [facility] DEPARTMENT OF PATHOLOGY AND LAB MEDICINE Blood (Blood, Venous) Venipuncture / Unknown 03/31/2024 8:28 AM EDT 03/31/2024 8:28 AM EDT us Mónica Greer GENERAL LAB Final Res ult Performing Organization Address City/[facility]/ZIP Co de Phone Number [facility] [address] [place] [address] * (ABNORMAL) HEMOGLOBIN A1C (03/31/2024 8:28 AM EDT) HEMOGLOBIN A1C 5.9(H) <5.7 % 03/31/2024 3:27 PM EDT [facility] Comment: Non-Diabetic Reference Range ??<5.7% Pre-Diabetic Reference Range ?? 5.7% - 6.4% Diabetic Reference Range ?>6.4% The [employer] Diabetes Association recommends that the goal of therapy should be a hemoglobin A1C of < 7.0% and that physicians should reevaluate the treatment regimen in patients with hemoglobin A1C values consistently > 8.0%. ESTIMATED AVERAGE GLUCOSE 123 mg/dL 03/31/2024 3:27 PM EDT [facility] DEPARTMENT OF PATHOLOGY AND LAB MEDICINE Comment: Estimated Average Glucose A1C(%) ?? mg/dl ?? (95% CI) 5 ? 97 ? (76-120) 6 ? 126 ?(100-152) 7 ? 154 ?(123-185) 8 ? 183 ?(147-217) 9 ? 212 ?(170-249) 10 ?240 ?(193-282) 11 ?269 ?(217-314) 12 ?298 ?(240-347) ?? Based on the ADAG formula: eAG = (28.7 X A1c) - 46.7 with the 95% confidence interval as reported in: Ramone CHRISTOPHER et al, Diabetes Care, 2008, 31(8);1470 Blood (Blood, Venous) Venipuncture / Unknown 03/31/2024 8:28 AM EDT 03/31/2024 8:28 AM EDT us Mónica Greer GENERAL LAB Final Res ult [facility] DEPARTMENT OF PATHOLOGY AND LAB MEDICINE [address] [place] [address] * HIV 1/2 ANTIGEN / ANTIBODY 4TH GENERATION W/REFLEX (02/17/2017 11:51 AM EDT) Pathologist [facility] HIV AG/AB 4th GENERATION Non-React sofi Non-React sofi [facility] DEPARTMENT OF PATHOLOGY AND LAB MEDICINE Comment: A non-reactive HIV Ag/Ab result does not exclude HIV infection since the time frame for seroconversion is variable. If acute HIV infection is suspected, repeat testing or an HIV RNA test is recommended. The assay performance has not been clinically validated in patients less than two years old. 02/17/2017 11:5 1 AM EDT 02/17/2017 3:58 PM EDT us Brenda Bruner GENERAL LAB Final Result Performing Organization Address [facility] Co de Phone Number [facility] DEPARTMENT OF PATHOLOGY AND LAB MEDICINE [address] [place] [address] * HEPATITIS C ANTIBODY (02/17/2017 11:51 AM EDT) HEPATITIS C ANTIBODY 0.[address] [facility] DEPARTMENT OF PATHOLOGY AND LAB MEDICINE Comment: Negative 0-0.79 Index Value (IV) Negative 02/17/2017 11:5 1 AM EDT 02/17/2017 4:00 PM EDT us Brenda Bruner GENERAL LAB Final Result Performing Organization Address [facility] de Phone Number [facility] OF [facility] AND LAB [facility]IC[facility] [address] [place] [address] * COLONOSCOPY (01/03/2016) Outside Provider PROCEDURES Edited Result - Final from Last 3 Months or Most Recently Relevant to Health Maintenance Insurance [employer] Care Teams Hansard Reporter Relationship Specialty Start Date End Date Poc, Not Required Pcp Or PCP - Payer 02/06/22 Jaimee Espitia MD [address] [place] [phone] PCP - General Family Medicine 03/01/23
--- OUTSIDE RECORDS SUMMARY | 2024-09-23 19:03 | XMS_ITS | Encounter Summary ---
Author Organization [facility] Address 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 on file Not on file documented as of this encounter Plan of Treatment Upcoming Encounters Date Type Department Care Team (Late Contact Info) Description 04/11/2025 8:00 AM EDT Office Visit [facility] [address] [place] [phone] Jaimee Espitia MD [address] [place] [phone] documented as of this encounter Visit Diagnoses Not on filedocumented in this encounter Care Teams Barrel Rifler Hook Relationship Specialty Start Date End Date Rufina Sims MD [address] [place] [phone] PCP - General Internal Medicine 02/02/18 09/22/22 Poc, Not Required Pcp Or PCP - Payer 02/06/22 documented as of this encounter
--- OUTSIDE RECORDS SUMMARY | 2024-09-23 19:03 | XMS_ITS | Encounter Summary ---
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 on file Not on file documented as of this encounter Plan of Treatment Upcoming Encounters Date Type Department Care Team (Late st Contact Info) Description 04/11/2025 8:00 AM EDT Office Visit [facility] [address] [place] [phone] Jaimee Espitia MD [address] [place] [phone] documented as of this encounter Visit Diagnoses Not on filedocumented in this encounter Care Teams Baseball Player Relationship Specialty Start Date End Date Poc, Not Required Pcp Or PCP - Payer 02/06/22 Jaimee Espitia MD [address] [place] [phone] PCP - General Family Medicine 03/01/23 documented as of this encounter
--- OUTSIDE RECORDS SUMMARY | 2024-09-23 19:03 | XMS_ITS | Encounter Summary ---
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 file Not on file documented as of this encounter Plan of Treatment Upcoming Encounters Date Type Department Care Team (Late Contact Info) Description 04/11/2025 8:00 AM EDT Office Visit [facility] [address] [place] [phone] Jaimee Espitia MD [address] [place] [phone] documented as of this encounter Visit Diagnoses Not on filedocumented in this encounter Care Teams Professor Of Art Relationship Specialty Start Date End Date Rufina Sims MD [address] [place] [phone] PCP - General Internal Medicine 02/02/18 09/22/22 Poc, Not Required Pcp Or PCP - Payer 02/06/22 documented as of this encounter
--- OUTSIDE RECORDS SUMMARY | 2024-09-23 19:03 | XMS_ITS | Encounter Summary ---
Author Organization [facility] Address [address] [place] [address] Care Team Providers Care Geoscience Technician Name Role Phone Poc, Not Required Pcp Or Unavailable Unavail able Jaimee Espitia Md Primary Care Provider [phone] Reason for Visit * Reason Comments Cough kh Encounter Details Date Type Department Care Team ([facility] st Contact Info) Description 07/03/2024 11:40 AM EST Office Visit [facility] [address] [place] [address] Moises Gallegos MD [address] [place] [address] Acute bronchitis due to other specified organisms (Primary Dx) Social History Tobacco Use Types [...] medical appointments or from getting medications? No 08/1 10/2023 In the past 12 months, has l ack of transportation kept you from meetings, work, or from getting things needed for daily living? No 03/28/2024 Depression Answer Date Recorded Last PHQ-2 2 03/31/2024 Last PHQ-9 Not on file 03/31/2024 Suicidal Ideation/Self Harm Risk Not on file 03/31/2024 Housing Stability Answer Date Recorded What is your housing situation today? 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 file Not on file Not on file documented as of this encounter Last Filed Vital Signs Vital Sign Reading Time Taken Comments Blood Pressure 122/70 07/03/2024 11:52 AM EST Pulse 70 07/03/2024 11:52 AM EST Temperature 36.9 ??C (98.4 ??F) 07/03/2024 11:[address] Respiratory Rate - - Oxygen Saturation 98% 07/03/2024 11:52 AM EST Inhaled Oxygen Concentration - - Weight 110.7 kg (244 lb) 07/03/2024 11:52 AM EST Height - - Body Mass Index 35.52 03/31/2024 7:55 AM EDT documented in this encounter Ordered Prescriptions Prescription Sig Dispense Quantity Refills Last Filled Start Date End Date azithromycin (ZITHROMAX Z-CHUNG) 250 mg tabletIndications: Acute bronchitis due to other specified organisms Take 2 tablets by mouth daily for 1 day, THEN 1 tablet daily for 4 days. 6 tablet 07/03/2024 documented in this encounter Progress Notes * Moises Gallegos MD - 07/03/2024 11:40 AM EST Urgent Care Visit Chief Complaint Patient presents with Cough kh History of Present Illness Jonathan Boyer is a 58 yrs. male with past medical history notable for hyperlipidemia, who presents to urgent care today for evaluation of cough and congestion that has been worsening over the last 10 days. He tested negative for the COVID using the home-based test. Has been taking the Mucinex. The cough is now productive of greenish-yellow sputum. Sometimes he is having bouts of coughing and that makes him feel lightheaded Denies any fever, headache Denies any chest tightness or shortness of breath Denies any nausea, vomiting, diarrhea Review of Systems As per HPI, otherwise negative. Past Medical and Surgical History Past Medical History: Diagnosis Date History of bilateral knee replacement 03/21/2020 Pneumonia 1994 Hospitalized X 5 days Past Surgical History: Procedure Laterality Date ARTHROPLASTY - KNEE Bilateral 2019 PAST SURGICAL HISTORY OF: 08/16/2007 Ulnar Nerve Entrapment PAST SURGICAL HISTORY OF: 08/16/2005 Arthroscopic Surgery for Meniscus PAST SURGICAL HISTORY OF: 08/16/1990 Anal Fistula/Abscess PAST SURGICAL HISTORY OF: 1980s R Shoulder Medications Current Outpatient Medications Medication Sig azithromycin (ZITHROMAX Z-CHUNG) 250 mg tablet Take 2 tablets by mouth daily for 1 day, THEN 1 tabletdaily for 4 days. simvastatin 20 mg tablet Take 1 tablet by mouth daily MEN'S MULTI-VITAMIN ORAL Take 1 tablet by mouth daily Allergies No Known Drug Allergies. Physical Exam Vital Signs: BP 122/70 Pulse 70 Temp 98.4 ??F (36.9 ??C) Wt 244 lb (110.7 kg) SpO2 98% BMI 35.52 kg/m?? Physical Exam Vitals reviewed. Constitutional: General: He is not in acute distress. HENT: Right Ear: Tympanic membrane and ear canal normal. Left Ear: Tympanic membrane and ear canal normal. Nose: Congestion present. Mouth/Throat: Pharynx: No oropharyngeal exudate. Eyes: General: No scleral icterus. Conjunctiva/sclera: Conjunctivae normal. Cardiovascular: Rate and Rhythm: Regular rhythm. Heart sounds: Normal heart sounds. No murmur heard. Pulmonary: Breath sounds: No wheezing or rales. Comments: Bilateral coarse breath sounds anteriorly Musculoskeletal: Cervical back: Neck supple. Right lower leg: No edema. Left lower leg: No edema. Lymphadenopathy: Cervical: No cervical adenopathy. Neurological: Mental Status: He is alert. EKG Radiology No results found. Procedure Labs No visits with results within 7 Day(s) from this visit. Latest known visit with results is: Lab Visit on 03/31/2024 Component Date Value Ref Range Status CHOLESTEROL 03/31/2024 218 (H) <=199 mg/dL Final HDL 03/31/2024 47 >=41 mg/dL Final CHOL/HDL RATIO 03/31/2024 4.6 <=4.9 Final LDL 03/31/2024 117.8 <=130 mg/dL Final TRIGLYCERIDES 03/31/2024 266 (H) <=149 mg/dL Final FASTING STATUS 03/31/2024 Fasting Final HEMOGLOBIN A1C 03/31/2024 5.9 (H) <5.7 % Final Non-Diabetic Reference Range <5.7% Pre-Diabetic Reference Range 5.7% - 6.4% Diabetic Reference Range >6.4% The [place] [employer] recommends that the goal of therapy should be a hemoglobin A1C of< 7.0% and that physicians should reevaluate the treatment regimen in patients with hemoglobin A1C values consistently > 8.0%. ESTIMATED AVERAGE GLUCOSE 03/31/2024 123 mg/dL Final Estimated Average Glucose A1C(%) mg/dl (95% CI) 5 97 (76-120) 6 126 (100-152) 7 154 (123-185) 8 183 (147-217) 9 212 (170-249) 10 240 (193-282) 11 269 (217-314) 12 298 (240-347) Based on the ADAG formula: eAG = (28.7 X A1c) - 46.7 with the 95% confidence interval as reported in: Ramone CHRISTOPHER et al, Diabetes Care, 2008, 31(8);1476 VITAMIN D,25-OH,TOTAL 03/31/2024 21 (L) 30 - 100 ng/mL Final Interpretation Deficient <20 Insufficient 20 - 29 Adequate 30 - 99 Toxic >99 Total 25OH Vitamin D concentration is determined by competitive binding chemiluminescent immunoassay using [employer] DxI 800 Immunoassay system. PROSTATIC ANTIGEN 03/31/2024 0.77 <=4.00 ng/mL Final PSA Result Probability of Cancer in Men with Negative (ng/mL) Digital Rectal Exam (JHON) 0-2 1% 2-4 15% 4-10 25% >10 50% Serum PSA concentrations, regardless of value, should not be interpreted as definitive evidence for the presence or absence of cancer. The optimal PSA threshold for biopsy has not been established. Prostate biopsy is required for the diagnosis of cancer. This test was performed using the [employer] DXI Chemiluminescence Immunoassay at [facility]. TOTAL PROTEIN 03/31/2024 6.7 6.0 - 8.9 g/dL Final ALBUMIN 03/31/2024 4.5 3.2 - 5.1 g/dL Final BILIRUBIN TOTAL 03/31/2024 0.5 0.1 - 1.3 mg/dL Final BILIRUBIN DIRECT 03/31/2024 0.10 <=0.60 mg/dL Final SGPT (ALT) 03/31/2024 17 2 - 60 U/L Final SGOT (AST) 03/31/2024 18 2 - 50 U/L Final ALKALINE PHOSPHATASE 03/31/2024 50 38 - 125 U/L Final GLUCOSE 03/31/2024 98 60 - 99 mg/dL Final FASTING STATUS 03/31/2024 Fasting Final SODIUM 03/31/2024 135 134 - 146 mmol/L Final POTASSIUM 03/31/2024 4.2 3.3 - 5.3 mmol/L Final CHLORIDE 03/31/2024 105 98 - 110 mmol/L Final CARBON DIOXIDE 03/31/2024 23.0 21 - 33 mmol/L Final CALCIUM 03/31/2024 9.4 8.8 - 10.6 mg/dL Final BUN 03/31/2024 14 7 - 25 mg/dL Final CREATININE 03/31/2024 0.80 0.50 - 1.40 mg/dL Final eGFR 03/31/2024 102 >60 Final The estimated glomerular filtration rate (eGFR) is now being calculated using a new formula developed by the NKF-ASN task force to eliminate the use of race- based correction factors. The new formula uses serum/plasma creatinine, age, and gender to determine eGFR. eGFR will only be reported if it is<120 mls/min. This value should be interpreted as an estimate of true GFR and maybe more clinically relevant if there is a trend. A value below 60mls/min might indicate kidney disease. For additional information, see Savita et al, AJKD, A Unifying Approach for GFR estimation: Recommendations of the NKF-ASN Task Force on Reassessing the Inclusion of Race in Diagnosing Kidney Disease. New reporting of Quantitative EGFR up to 120 to be used for implementation of AHA PREVENT model forASCVD risk prediction. Urgent Care Course and Medical Decision Making Pertinent labs & imaging studies reviewed. (See chart for details.) Jonathan Boyer is a 58 yrs. male who presents for evaluation of worsening cough and congestion over the last 10 days. The cough is now productive of greenish- yellow sputum. More likely acute bronchitis. Cannot rule out H. influenzae or Moraxella infection. Clinically no evidence to indicate any pneumonia. Discussed empirical treatment with Zithromax. Patient is also traveling on to [place]. Prescribed the Zithromax and advised to continue with Mucinex or Robitussin for symptomatic relief Patient understands to call primary care physician's office with any questions or concerns, or if symptoms do not resolve and/or worsen. Patient also instructed to go to the emergency department for evaluation, if symptoms acutely worsen. Yes, Rx given Zithromax Discussed concerns related to diagnoses, medications, treatments, alternatives, potential side effects with patient, who indicated understanding. Reviewed warning signs and symptoms of worsening condition. Patient expressed understanding and agrees with the plan as described. Patient appears satisfied with this plan, expressed understanding of how to follow up with PCP, use the services provided,including the urgent care, primary care and emergency services. Signed: 07/03/24 documented in this encounter Plan of Treatment Upcoming Encounters Date Type Department Care Team (Late st Contact Info) Description 04/11/2025 8:00 AM EDT Office Visit [facility] [address] [place] [address] Jaimee Espitia MD [address] [place] [address] documented as of this encounter Visit Diagnoses Diagnosis Acute bronchitis due to other specified organisms- Primary documented in this encounter Care Teams Geoscience Technician Relationship Specialty Start Date End Date Poc, Not Required Pcp Or PCP - Payer 02/06/22 Jaimee Espitia MD [address] [place] [phone] PCP - General Family Medicine 03/01/23 documented as of this encounter
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
--- OUTSIDE RECORDS SUMMARY | 2024-09-23 19:03 | XMS_ITS | Encounter Summary ---
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 Pt reports night of 07/10 had heartburn sensation with sweats, palpitations, mild nausea with symptoms lasting about an hour then resolved on own. Symptoms have not reoccurred since then. Currently asymptomatic at this time. Denies fever, dizziness, cp, sob, vomiting. Pt alert, comfortable and cooperative. Pt speech fluent, breathing comfortably. Pt does not sound to be in distress. Advised pt to have OV instead of video visit. Pt agrees. Will have [place] schedule OV appt; message sent to [place] [employer]. Pt to go to ER for reoccurring, or severe symptoms; call back for new or concerning symptoms. Macarena Wallace PA-C documented in this encounter Plan of Treatment Upcoming Encounters Date Type Department Care Team (Late st Contact Info) Description 04/11/2025 8:00 AM EDT Office Visit [facility] [address] [place] [address] Jaimee Espitia MD 2 [place] [address] documented as of this encounter Visit Diagnoses Diagnosis Heartburn- Primary documented in this encounter Care Teams Correctional Therapy Director Relationship Specialty Start Date End Date Poc, Not Required Pcp Or PCP - Payer 02/06/22 Jaimee Espitia MD [address] [place] [address] PCP - General Family Medicine 03/01/23 documented as of this encounter
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
--- OUTSIDE RECORDS SUMMARY | 2024-09-23 19:03 | XMS_ITS | Encounter Summary ---
Author Organization [email or web address] Address [address] [facility] [address] [place] [address] Care Team Providers Care Coke Drawer Name Role Phone Poc, Not Required Pcp Or Unavailable Unavail able Jaimee Espitia Md Primary Care Provider [phone] Reason for Visit * Reason Comments COVID-19 Medical Advice - with Symptoms Cough Congestion Fever Chills Encounter Details Date Type Department Care Team ([facility] Contact Info) Description 03/15/2023 Telephone [facility] 2 [place] [address] [email or web address], /[place] [address] COVID-19 MEDICAL ADVICE - WITH SYMPTOMS Social History Tobacco Use Types Packs/Day Years [...] 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 Not on file documented as of this encounter Plan of Treatment Upcoming Encounters Date Type Department Care Team ([facility] Contact Info) Description 04/11/2025 8:00 AM EDT Office Visit [facility] 2 [place] [address] Jaimee Espitia MD 2 [place] [address] documented as of this encounter Procedures Procedure Name Priority Date/Time Associated Diagnosis Comments COVID ANTIGEN - EXT Routine 03/14/2023 documented in this encounter Results * (ABNORMAL) COVID ANTIGEN - EXT (03/14/2023) COVID ANTIGEN EXT Positive(A ) Negative Narrative Resulting Agency Comment us Outside Provider GENERAL LAB Final Result documented in this encounter Visit Diagnoses Not on filedocumented in this encounter Care Teams Coke Drawer Relationship Specialty Start Date End Date Poc, Not Required Pcp Or PCP - Payer 02/06/22 Jaimee Espitia MD 2 [place] [phone] PCP - General Family Medicine 03/01/23 documented as of this encounter
--- OUTSIDE RECORDS SUMMARY | 2024-09-23 19:03 | XMS_ITS | Encounter Summary ---
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 Not on file documented as of this encounter Plan of Treatment Upcoming Encounters Date Type Department Care Team (Late st Contact Info) Description 04/11/2025 8:00 AM EDT Office Visit [facility] [address] [place] [address] Jaimee Espitia MD 2 [place] [address] documented as of this encounter Visit Diagnoses Not on filedocumented in this encounter Care Teams Comber Tender Relationship Specialty Start Date End Date Poc, Not Required Pcp Or PCP - Payer 02/06/22 Jaimee Espitia MD [address] [place] [address], [place] [address] PCP - General Family Medicine 03/01/23 documented as of this encounter
--- OUTSIDE RECORDS SUMMARY | 2024-09-23 19:03 | XMS_ITS | Encounter Summary ---
Author Organization [facility] Address [address] 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 Not on file documented as of this encounter Plan of Treatment Upcoming Encounters Date Type Department Care Team (Late st Contact Info) Description 04/11/2025 8:00 AM EDT Office Visit [facility] 2 [place] [address] Jaimee Espitia MD 2 [place] [address] documented as of this encounter Visit Diagnoses Not on filedocumented in this encounter Care Teams Overhead Garage Door Hanger Relationship Specialty Start Date End Date Poc, Not Required Pcp Or PCP - Payer 02/06/22 Jaimee Espitia MD [address] [place] [phone] PCP - General Family Medicine 03/01/23 documented as of this encounter
--- OUTSIDE RECORDS SUMMARY | 2024-09-23 19:03 | XMS_ITS | Encounter Summary ---
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 Not on file documented as of this encounter Miscellaneous Notes * Telephone Encounter - Maisha Sandy LPN - 07/02/2024 12:06 PM EST COUGH - COVID APPT BOOKED IN [facility] AT 11:40AM documented in this encounter Plan of Treatment Upcoming Encounters Date Type Department Care Team (Late st Contact Info) Description 04/11/2025 8:00 AM EDT Office Visit [facility] 2 [place] [address] Jaimee Espitia MD 2 [place] [address] documented as of this encounter Visit Diagnoses Not on filedocumented in this encounter Care Teams Change Lead Relationship Specialty Start Date End Date Poc, Not Required Pcp Or PCP - Payer 02/06/22 Jaimee Espitia MD 2 [place] [address] PCP - General Family Medicine 03/01/23 documented as of this encounter
--- OUTSIDE RECORDS SUMMARY | 2024-09-23 19:03 | XMS_ITS | Encounter Summary ---
Author Organization [facility] Address [address] [facility] [address] [place] [address] Care Team Providers Care Wholesale And Retail Merchant Name Role Phone Rufina Sims Md Primary Care Provider [phone] Poc, Not Required Pcp Or Unavailable Unavail able Encounter Details Date Type Department Care Team (Late Contact Info) Description 06/11/2022 Email Encounter [facility] 2 [place] [address] Online, [employer] USED BY [employer] Alternative TO CREATE USER MESSAGE ENCOUNTERS BY NON-PROVIDERS PCP Departure Notification Social History Tobacco Use Types Packs/Day Years [...] 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 Not on file documented as of this encounter Plan of Treatment Upcoming Encounters Date Type Department Care Team (Late Contact Info) Description 04/11/2025 8:00 AM EDT Office Visit [facility] 2 [place] [address] Jaimee Espitia MD 2 [place] [phone] documented as of this encounter Visit Diagnoses Not on filedocumented in this encounter Care Teams Wholesale And Retail Merchant Relationship Specialty Start Date End Date Rufina Sims MD 2 [place] [address] PCP - General Internal Medicine 02/02/18 09/22/22 Poc, Not Required Pcp Or PCP - Payer 02/06/22 documented as of this encounter
--- OUTSIDE RECORDS SUMMARY | 2024-09-23 19:03 | XMS_ITS | Encounter Summary ---
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
--- OUTSIDE RECORDS SUMMARY | 2024-09-23 19:03 | XMS_ITS | Encounter Summary ---
Author Organization [facility] Address [address] [facility] [address] [place] [address] Care Team Providers Care First Assistant Manager Name Role Phone Poc, Not Required Pcp Or Unavailable Unavail able Jaimee Espitia Md Primary Care Provider [phone] Encounter Details Date Type Department Care Team (Late st Contact Info) Description 03/31/2023 Email Encounter [facility] [address] [place] [address] Mónica Greer, M[facility] [address] [address] Hyperlipidemia Ldl Goal <130 (Primary Dx); Prediabetes Social History Tobacco Use Types Packs/Day [...] 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 Not on file documented as of this encounter Ordered Prescriptions Prescription Sig Dispense Quantity Refills Last Filled Start Date End Date simvastatin 20 mg tabletIndications: Hyperlipidemia LDL goal <130 Take 1 tablet by mouth daily 90 tablet 3 03/31/2023 07/19/2023 documented in this encounter Plan of Treatment Upcoming Encounters Date Type Department Care Team (Late st Contact Info) Description 04/11/2025 8:00 AM EDT Office Visit [facility] 2 [place] [address] Jaimee Espitia MD 2 [place] [address] documented as of this encounter Results * (ABNORMAL) LIPID PROFILE (03/31/2024 8:28 AM EDT) CHOLESTEROL 218(H) <=199 mg/dL 03/31/2024 12:54 PM EDT [facility] DEPART[facility] OF [facility]OLOG[facility] LAB MEDICINE HDL 47 >=41 mg/dL 03/31/2024 12:54 PM EDT [facility] DEPART[facility] OF PATHOLOGY AND LAB MEDICINE CHOL/HDL RATIO 4.6 <=4.9 03/31/2024 12:54 PM EDT [facility] DEPARTMENT OF PATHOLOGY AND LAB MEDICINE LDL 117.8 <=130 mg/dL 03/31/2024 12:54 PM EDT [facility] DEPARTMENT OF PATHOLOGY AND LAB MEDICINE TRIGLYCERIDES 266(H) <=149 mg/dL 03/31/2024 12:54 PM EDT [facility] DEPARTMENT OF PATHOLOGY AND LAB MEDICINE FASTING STATUS Fasting 03/31/2024 12:54 PM EDT [facility] DEPART[facility] OF PATHOLOGY AND LAB MEDICINE Blood (Blood, Venous) Venipuncture / Unknown 03/31/2024 8:28 AM EDT 03/31/2024 8:28 AM EDT us Mónica Greer GENERAL LAB Final Res ult [facility] DEPARTMENT OF PATHOLOGY AND LAB MEDICINE [address] [place] [address] * (ABNORMAL) HEMOGLOBIN A1C (03/31/2024 8:28 AM EDT) HEMOGLOBIN A1C 5.9(H) <5.7 % 03/31/2024 3:27 PM EDT [facility] DEPARTMENT OF PATHOLOGY AND LAB MEDICINE Comment: Non-Diabetic Reference Range ??<5.7% Pre-Diabetic Reference Range ?? 5.7% - 6.4% Diabetic Reference Range ?>6.4% The [place] [employer] recommends that the goal of therapy should be a hemoglobin A1C of < 7.0% and that physicians should reevaluate the treatment regimen in patients with hemoglobin A1C values consistently > 8.0%. ESTIMATED AVERAGE GLUCOSE 123 mg/dL 03/31/2024 3:27 PM EDT [facility] DEPARTMENT OF PATHOLOGY AND LAB MEDICINE Comment: [...] CHRISTOPHER et al, Diabetes Care, 2008, 31(8);1476 Blood (Blood, Venous) Venipuncture / Unknown 03/31/2024 8:28 AM EDT 03/31/2024 8:28 AM EDT us Mónica Greer GENERAL LAB Final Res ult [facility] DE[facility] OF [facility]OLOGY AND LAB MEDICINE [address] [place] [address] documented in this encounter Visit Diagnoses Diagnosis Hyperlipidemia LDL goal <130- Primary Other and unspecified hyperlipidemia Prediabetes Other abnormal glucose documented in this encounter Discontinued Medications Medication Sig Discontinue Reason Start Date End Da te nirmatrelvir-ritonavi r (PAXLOVID) 300 mg (150 mg x 2)-100 mg therapy packIndications:COVID -19 virus infection Take 3 tablets by mouth every 12 hours for 5 days (take one 100 mg ritonavir tablet at the same time with two 150 mg nirmatrelvir tablets for each dose.) Med List Clean-up 03/15/2023 03/31/2023 documented as of this encounter Care Teams First Assistant Manager Relationship Specialty Start Date End Date Poc, Not Required Pcp Or PCP - Payer 02/06/22 Jaimee Espitia MD [address] [place] [phone] PCP - General Family Medicine 03/01/23 documented as of this encounter
--- OUTSIDE RECORDS SUMMARY | 2024-09-23 19:03 | XMS_ITS | Encounter Summary ---
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 on file documented as of this encounter Plan of Treatment Upcoming Encounters Date Type Department Care Team (Late st Contact Info) Description 04/11/2025 8:00 AM EDT Office Visit [facility] [address] [place] [address], [place] [address] Jaimee Espitia MD 2 [place] [address] documented as of this encounter Visit Diagnoses Not on filedocumented in this encounter Care Teams Fur Blower Relationship Specialty Start Date End Date Poc, Not Required Pcp Or PCP - Payer 02/06/22 Jaimee Espitia MD 2 [place] [address] PCP - General Family Medicine 03/01/23 documented as of this encounter
--- OUTSIDE RECORDS SUMMARY | 2024-09-23 19:03 | XMS_ITS | Encounter Summary ---
Author Organization [facility] Address [address] [facility] [address] [place] [address] Care Team Providers Care Video Presentation Operator Name Role Phone Poc, Not Required Pcp Or Unavailable Unavail able Jaimee Espitia Md Primary Care Provider [phone] Reason for Referral * Specialty (Clinically Urgent - w/in a Week ) - Closed Specialty Diagnoses / Procedures Referred By Valerie valdez Referred To Contact Hand Orthopedics Diagnoses Finger numbness Ana María Duval Pa-C [address] [place] [address] Phone: tel: fax: [address] [phone] Phone: tel: Referral ID Status Reason Start Date Expiration Date Visits Re quested Visits Authorized [id number] Closed 07/19/2023 07/19/2024 3 3 Scheduling Instructions This referral may allow patient to self-book online. Otherwise, normal referral management procedures will apply. * Imaging (Priority - w/in a Month ) - Auth Not Needed Specialty Diagnoses / Procedures Referred By Valerie valdez Referred To Contact Diagnoses Burning chest pain Procedures EXERCISE STRESS TEST Ana María Duval Pa-C [address] [place] [address] Phone: tel: fax: [address] [phone] Phone: tel: Referral ID Status Reason Start Date Expiration Date V isits Requested Visits Authorized [id number] Auth Not Needed 07/19/2023 07/18/2024 1 1 Reason for Visit * Reason Comments Heartburn Nausea Encounter Details Date Type Department Care Team (Late st Contact Info) Description 07/19/2023 2:00 PM EST Office Visit [facility] [address] [place] [address] Ana María Duval Pa-C [address] [place] [address] Burning chest pain (Primary Dx); Hyperlipidemia LDL goal <130; Finger numbness; Flu vaccine need; Gastroesophageal reflux disease, unspecified whether esophagitis present Social History Tobacco Use Types Packs/Day Years [...] 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 Not on file Not on file documented as of this encounter Last Filed Vital Signs Vital Sign Reading Time Taken Comments Blood Pressure 130/86 07/19/2023 2:04 PM EST Pulse 61 07/19/2023 2:04 PM EST Temperature - - Respiratory Rate - - Oxygen Saturation 97% 07/19/2023 2:04 PM EST Inhaled Oxygen Concentration - - Weight - - Height - - Body Mass Index - - documented in this encounter Ordered Prescriptions Prescription Sig Dispense Quantity Refills Last Filled Start Date End Date simvastatin 20 mg tabletIndications: Hyperlipidemia LDL goal <130 Take 1 tablet by mouth daily 90 tablet 3 07/19/2023 07/31/2024 documented in this encounter Progress Notes * Ana María Duval Pa-C - 07/19/2023 2:00 PM EST Jonathan Boyer is a 58-year-old male, with history of hyperlipidemia, obesity, vitamin D deficiency and other medical issues, presents to the office due to heartburn symptoms about 2 weeks ago. He believes about 10 to 14 days ago he was out celebrating his birthday and had spicy food and alcoholic beverages. In the middle of the night he woke up and sweats. He also felt severe heartburn described as burning and sour taste in his chest and nausea. He states he then had abdominal pain and diarrhea.He then took Pepto-Bismol and Tums and lay down and did feel lethargic the next day but his symptoms did resolve. He states he does walk daily and does cycle and has not had any symptoms when he is exerting himself. He denies any associated headaches, dizziness, chest pain, palpitations, shortness of breath or vomiting. He does have a history of hyperlipidemia and is currently taking simvastatin 10 mg. He did not knowhe was supposed to increase his simvastatin to 20 mg. He also complains of continued finger numbness which he did bring up at his physical. He states this usually happens after long bike rides but it usually resolves after a week. However he continues to have symptoms and has been a month. ROS: otherwise negative for constitutional, ENT, genitourinary, and musculoskeletal symptoms. No Known Drug Allergies. Current Outpatient Medications on File Prior to Visit: Medication Sig MEN'S MULTI-VITAMIN ORAL Take 1 tablet by mouth daily EXAM: --Appears obese but otherwise well-appearing and in no distress --VS as above --BP 130/86 Pulse 61 SpO2 97% Skin: --warm, dry, normal turgor --no palpable subcutaneous nodules HEENT: --conjunctiva clear --Oral mucosa and dentition normal --Throat clear Neck: --Supple, no JVD Chest --Clear to auscultation Cardiac: --RRR; S1 and S2 normal; no murmur or gallop Abdomen: -- Soft, normal active bowel sounds, nontender all quadrants, no masses Office Evaluation: -My examination of EKG indicates: Sinus bradycardia, normal EKG reviewed by me, no ST changes. -Lipid panel results: Elevated LDL at 145. ASSESSMENT: 58-year-old male, with history of hyperlipidemia, obesity, vitamin D deficiency and other medical issues, presents to the office due to heartburn symptoms about 2 weeks ago PLAN: -Burning in chest: Most likely due to GERD symptoms. However due to his age and his history of hyperlipidemia have recommended for stress testing. -Hyperlipidemia: I have informed him he should increase his simvastatin 20 mg daily for his overallheart health. -Finger numbness: Referral placed to hand for evaluation. -Flu vaccine today. -Disposition: Call back or return visit if symptoms not improving with this plan or are progressivein any way. Return visit as needed. documented in this encounter Plan of Treatment Upcoming Encounters Date Type Department Care Team (Late st Contact Info) Description 04/11/2025 8:00 AM EDT Office Visit [facility] [address] [place] [address] Jaimee Espitia MD [address] [place] [address] Scheduled Referrals Name Type Priority Associated Diagnoses Orde r Schedule REFERRAL TO ORTHOPEDIC HAND SURGERY REFERRAL/FUTURE Routine Finger numbness Ordered: 07/19/2023 documented as of this encounter Procedures Procedure Name Priority Date/Time Associated Diagnosis Comments EXERCISE STRESS TEST Routine 09/24/2023 Burning chest pain EKG Routine 07/19/2023 2:26 PM EST Burning chest pain documented in this encounter Results * EXERCISE STRESS TEST (09/24/2023) Anatomical Region Laterality Modality Other 09/24/2023 Narrative 09/24/2023 TESTING SITE: [facility] ?Visit Date:September 24, 2023 Patient: ??Jonathan Boyer ? Attending Logger Driving Horses: Dr. Vaibhav Herring ? PCP:Jaimee Espitia MD : ??1965 ?BMI: 34.16 kg/m2 Diagnosis: Chest discomfort Procedure: Luis Protocol ECG Stress Test Indication: Rule out ASCAD History:Jonathan Boyer is a 58 yrs. male with a history of hyperlipidemia. He is here for further evaluation. Cardiac Medications: Simvastatin Exercise Test Summary Stress Test: The patient exercised for a total of 10:00 min:s and achieved stage 4 at peak stress. ?? This corresponds to a peak treadmill speed of 4.2mph with a 16% incline. The workload achieved was 12.1 METS. This is above average for an individual of this age. Stress Hemodynamics: The resting heart rate of 63 bpm increased to 145 bpm at peak stress which represents 90% of the maximal predicted heart rate. The resting BP of 120/50 mm/Hg increased to 180/60 mm/Hg at peak stress which represents a physiologic response. The double product was 26,100 . Symptoms: The patient did not develop symptoms of chest pain. The patient developed symptoms of dyspnea. The test was terminated secondary to fatigue. ECG Interpretation: Rest: Sinus bradycardia Stress: Sinus Tachycardia ?with nonspecific ST-T segment abnormalities. Arrhythmias: None Summary Clinical Response: ??Nonischemic ?? Stress Electrocardiographic response: Nonischemic Probability Analysis Pre-test probability of ASCAD is low to intermediate. Post-test probability of ASCAD is low. Conclusion The test results overall reveal a low probability of angiographic significant coronary artery disease. ??The patient was not referred for further testing. Ana María Duval [facility] Result * EKG (07/19/2023 2:26 PM EST) Ventrical Rate 58 BPM EKG - [facility] P-R interval (msec) 194 ms EKG - [facility] QRS - interval (msec) 90 ms EKG - [facility] QT - interval (msec) 432 ms EKG - [facility] QT - corrected (msec) 424 ms EKG - [facility] P-wave axis (deg) 30 degrees EKG - [facility] QRS-axis (deg) 46 degrees EKG - [facility] T-wave axis (deg) 37 degrees EKG - [facility] 07/19/2023 2:26 PM EST 07/19/2023 4:51 PM EST Impressions EKG - [facility] - 07/19/2023 4:51 PM EST Sinus bradycardia Otherwise normal ECG No previous ECGs available Confirmed by Vaibhav Herring M.D. ([id number]) on 07/19/2023 4:51:28 PM Ana María Duval EKG Final Result EKG - [facility] documented in this encounter Visit Diagnoses Diagnosis Burning chest pain- Primary Other chest pain Hyperlipidemia LDL goal <130 Other and unspecified hyperlipidemia Finger numbness Disturbance of skin sensation Flu vaccine need Need for prophylactic vaccination and inoculation against influenza Gastroesophageal reflux disease, unspecified whether esophagitis present documented in this encounter Discontinued Medications Medication Sig Discontinue Reason Start Date End Da te simvastatin 10 mg tabletIndications:Hyperl ipidemia LDL goal <130 TAKE 1 TABLET BY MOUTH EVERY DAY Med List Clean-up 03/02/2023 07/19/2023 simvastatin 20 mg tabletIndications:Hyperl ipidemia LDL goal <130 Take 1 tablet by mouth daily 03/31/2023 07/19/2023 documented as of this encounter Orders IMMUNIZATIONS/INJECTION Count Last Ordered Date First Ordered Date INFLUENZA VACCINE, 6MOS+, SI NGLE DOSE SYRINGE, 0.5 ML (GSK OR SANOFI) 1 07/19/2023 documented in this encounter Care Teams Video Presentation Operator Relationship Specialty Start Date End Date Poc, Not Required Pcp Or PCP - Payer 02/06/22 Jaimee Espitia MD [address] [place] [phone] PCP - General Family Medicine 03/01/23 documented as of this encounter
--- OUTSIDE RECORDS SUMMARY | 2024-09-23 19:03 | XMS_ITS | Encounter Summary ---
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 Not on file Not on file documented as of this encounter Plan of Treatment Upcoming Encounters Date Type Department Care Team (Late st Contact Info) Description 04/11/2025 8:00 AM EDT Office Visit [facility] [address] [place] [phone] Jaimee Espitia MD [address] [place] [phone] documented as of this encounter Visit Diagnoses Not on filedocumented in this encounter Care Teams Game Show Host Relationship Specialty Start Date End Date Rufina Sims MD [address] [place] [address] PCP - General Internal Medicine 02/02/18 09/22/22 Poc, Not Required Pcp Or PCP - Payer 02/06/22 Poc, Not Assigned Pcp Or PCP - General 09/23/22 02/28/23 documented as of this encounter
--- OUTSIDE RECORDS SUMMARY | 2024-09-23 19:03 | XMS_ITS | Encounter Summary ---
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 on file Not on file documented as of this encounter Plan of Treatment Upcoming Encounters Date Type Department Care Team (Late st Contact Info) Description 04/11/2025 8:00 AM EDT Office Visit [facility] 2 [place] [address] Jaimee Espitia MD [address] [place] [address] documented as of this encounter Visit Diagnoses Not on filedocumented in this encounter Care Teams Upper Trimmer Relationship Specialty Start Date End Date Poc, Not Required Pcp Or PCP - Payer 02/06/22 Jaimee Espitia MD [address] [place] [address], [place] [address] PCP - General Family Medicine 03/01/23 documented as of this encounter
--- OUTSIDE RECORDS SUMMARY | 2024-09-23 19:03 | XMS_ITS | Encounter Summary ---
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 on file Not on file documented as of this encounter Plan of Treatment Upcoming Encounters Date Type Department Care Team ([facility] Contact Info) Description 04/11/2025 8:00 AM EDT Office Visit [facility] [address] [place] [phone] Jaimee Espitia MD [address] [place] [address] documented as of this encounter Visit Diagnoses Not on filedocumented in this encounter Care Teams School Bus Operator Relationship Specialty Start Date End Date Poc, Not Required Pcp Or PCP - Payer 02/06/22 Jaimee Espitia MD [address] [place] [address] PCP - General Family Medicine 03/01/23 documented as of this encounter
--- OUTSIDE RECORDS SUMMARY | 2024-09-23 19:03 | XMS_ITS | Encounter Summary ---
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 on file Not on file documented as of this encounter Plan of Treatment Upcoming Encounters Date Type Department Care Team (Late Contact Info) Description 04/11/2025 8:00 AM EDT Office Visit [facility] [address] [place] [phone] Jaimee Espitia MD [address] [place] [address] documented as of this encounter Visit Diagnoses Not on filedocumented in this encounter Care Teams District Manager Postal Service Relationship Specialty Start Date End Date Rufina Sims MD [address] [place] [address] PCP - General Internal Medicine 02/02/18 09/22/22 Poc, Not Required Pcp Or PCP - Payer 02/06/22 documented as of this encounter
--- OUTSIDE RECORDS SUMMARY | 2024-09-23 19:03 | XMS_ITS | Encounter Summary ---
Author Organization [facility] Address [address] 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 Not on file documented as of this encounter Plan of Treatment Upcoming Encounters Date Type Department Care Team (Late st Contact Info) Description 04/11/2025 8:00 AM EDT Office Visit [facility] 2 [place] [address] Jaimee Espitia MD [address] [place] [address] documented as of this encounter Visit Diagnoses Not on filedocumented in this encounter Care Teams Repeat Photocomposing Machine Operator Relationship Specialty Start Date End Date Poc, Not Required Pcp Or PCP - Payer 02/06/22 Jaimee Espitia MD [address] [place] [phone] PCP - General Family Medicine 03/01/23 documented as of this encounter
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
--- OUTSIDE RECORDS SUMMARY | 2024-09-23 19:04 | XMS_ITS | Encounter Summary ---
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 on file Not on file documented as of this encounter Ordered Prescriptions Prescription Sig Dispense Quantity Refills Last Filled Start Date End Date amoxicillin 500 mg capsuleIndications :Prophylactic antibiotic Take 4 capsules by mouth as instructed 1 hour before dental procedure 4 capsule 2 07/26/2020 1 documented in this encounter Plan of Treatment Upcoming Encounters Date Type Department Care Team (Late st Contact Info) Description 04/11/2025 8:00 AM EDT [facility] [place] [address] [place] [phone] Jaimee Espitia MD [address] [place] [phone] documented as of this encounter Visit Diagnoses Diagnosis Prophylactic antibiotic- Primary Encounter for long-term (current) use of antibiotics documented in this encounter Care Teams Qa Specialist Relationship Specialty Start Date End Date Rufina Sims MD [address] [place] [phone] PCP - General Internal Medicine 02/02/18 09/22/22 Rufina Sims MD [address] [place] [phone] PCP - Payer 06/16/18 02/05/22 documented as of this encounter
--- OUTSIDE RECORDS SUMMARY | 2024-09-23 19:04 | XMS_ITS | Encounter Summary ---
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 Sims, I???m following up on my referral request for Dr. Ledesma for my knee osteoarthritis. The referral still shows ???Pending Additional Auth Review?? in my patient portal. I have had bloodwork done at [facility], and am preparing to schedule additional visits and surgery, so I want to make sure the referral is approved before I get to o far down this path. Thank you, Chalino Boyer documented in this encounter Plan of Treatment Upcoming Encounters Date Type Department Care Team (Late st Contact Info) Description 04/11/2025 8:00 AM EDT Office Visit [facility] [address] [place] [phone] Jaimee Espitia MD 2 [place] [phone] documented as of this encounter Visit Diagnoses Not on filedocumented in this encounter Care Teams Steam Finisher Relationship Specialty Start Date End Date Rufina Sims MD [address] [place] [address] PCP - General Internal Medicine 02/02/18 09/22/22 Rufina Sims MD [address] [place] [address] PCP - Payer 06/16/18 02/05/22 documented as of this encounter
--- OUTSIDE RECORDS SUMMARY | 2024-09-23 19:04 | XMS_ITS | Encounter Summary ---
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 No / Unsure 11/27/2020 8:45 AM EDT documented as of this encounter Plan of Treatment Upcoming Encounters Date Type Department Care Team (Late Contact Info) Description 04/11/2025 8:00 AM EDT Office Visit [facility] [address] [place] [phone] Jaimee Espitia MD 2 [place] [phone] documented as of this encounter Visit Diagnoses Not on filedocumented in this encounter Care Teams Burlap Spreader Relationship Specialty Start Date End Date Rufina Sims MD [address] [place] [phone] PCP - General Internal Medicine 02/02/18 09/22/22 Rufina Sims MD 2 [place] [phone] PCP - Payer 06/16/18 02/05/22 documented as of this encounter
--- OUTSIDE RECORDS SUMMARY | 2024-09-23 19:04 | XMS_ITS | Encounter Summary ---
Author Organization [facility] Address [address] [facility] [address] [place] [address] Care Team Providers Care Instrument Setter Name Role Phone Rufina Sims Md Primary Care Provider [phone] Rufina Sims Md Unavailable [phone] Encounter Details Date Type Department Care Team (Late st Contact Info) Description 10/09/2019 Email Encounter [facility] [address] [place] [phone] Online, [email or web address] USED BY [employer] TO CREATE USER MESSAGE ENCOUNTERS BY NON-PROVIDERS *Nutrition Referral* Social History Tobacco Use Types Packs/Day Years [...] 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 Not on file documented as of this encounter Plan of Treatment Upcoming Encounters Date Type Department Care Team (Late st Contact Info) Description 04/11/2025 8:00 AM EDT Office Visit [place] [address] [place] [phone] Jaimee Espitia MD 2 [place] [phone] documented as of this encounter Visit Diagnoses Not on filedocumented in this encounter Care Teams Instrument Setter Relationship Specialty Start Date End Date Rufina Sims MD [address] [place] [phone] PCP - General Internal Medicine 02/02/18 09/22/22 Rufina Sims MD [address] [place] [phone] PCP - Payer 06/16/18 02/05/22 documented as of this encounter
--- OUTSIDE RECORDS SUMMARY | 2024-09-23 19:04 | XMS_ITS | Encounter Summary ---
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 Not on file documented as of this encounter Plan of Treatment Upcoming Encounters Date Type Department Care Team (Late Contact Info) Description 04/11/2025 8:00 AM EDT Office Visit [place] [address] [place] [phone] Jaimee Espitia MD 2 [place] [phone] documented as of this encounter Visit Diagnoses Not on filedocumented in this encounter Care Teams Content Editor Relationship Specialty Start Date End Date Rufina Sims MD [address] [place] [phone] PCP - General Internal Medicine 02/02/18 09/22/22 Rufina Sims MD [address] [place] [phone] PCP - Payer 06/16/18 02/05/22 documented as of this encounter
--- OUTSIDE RECORDS SUMMARY | 2024-09-23 19:04 | XMS_ITS | Encounter Summary ---
Author Organization [facility] Address [address] [facility] [address] [place] [address] Care Team Providers Care Tail Dogger Name Role Phone Rufina Sims Md Primary Care Provider [phone] Rufina Sims Md Unavailable [phone] Encounter Details Date Type Department Care Team (Late st Contact Info) Description 08/03/2018 Email Encounter [facility], Day, Adult [address] [place] [phone] Online, [employer] USED BY [employer] TO CREATE USER MESSAGE ENCOUNTERS BY NON-PROVIDERS Flu Vaccine Scheduling Now Available Through [employer] Online! 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 Not on file documented as of this encounter Plan of Treatment Upcoming Encounters Date Type Department Care Team (Late st Contact Info) Description 04/11/2025 8:00 AM EDT Office Visit [place] [address] [place] [phone] Jaimee Espitia MD 2 [place] [phone] documented as of this encounter Visit Diagnoses Not on filedocumented in this encounter Care Teams Tail Dogger Relationship Specialty Start Date End Date Rufina Sims MD [address] [place] [phone] PCP - General Internal Medicine 02/02/18 09/22/22 Rufina Sims MD [address] [place] [phone] PCP - Payer 06/16/18 02/05/22 documented as of this encounter
--- OUTSIDE RECORDS SUMMARY | 2024-09-23 19:04 | XMS_ITS | Encounter Summary ---
Author Organization [facility] Address [address] [facility] [address] [place] [address] Care Team Providers Care Research Editor Name Role Phone Rufina Sims Md Primary Care Provider [phone] Rufina Sims Md Unavailable [phone] Reason for Visit * Reason Comments scheduling surgery Encounter Details Date Type Department Care Team (Late st Contact Info) Description 05/15/2019 Telephone [facility] [address] [place] [phone] Ryan Heart MD [address] [place] [phone] 0scheduling surgery Social History Tobacco Use Types Packs/Day Years [...] 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 Not on file documented as of this encounter Miscellaneous Notes * Telephone Encounter - Maria Alejandra Pastor - 05/15/2019 4:26 PM EDT L/M for pt to call back to discuss scheduling surgery Please transfer call to [phone] documented in this encounter Plan of Treatment Upcoming Encounters Date Type Department Care Team (Late st Contact Info) Description 04/11/2025 8:00 AM EDT [facility] [address] [place] [phone] Jaimee Espitia MD [address] [place] [phone] documented as of this encounter Visit Diagnoses Not on filedocumented in this encounter Care Teams Research Editor Relationship Specialty Start Date End Date Rufina Sims MD [address] [place] [phone] PCP - General Internal Medicine 02/02/18 09/22/22 Rufina Sims MD [address] [place] [phone] PCP - Payer 06/16/18 02/05/22 documented as of this encounter
--- OUTSIDE RECORDS SUMMARY | 2024-09-23 19:04 | XMS_ITS | Encounter Summary ---
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 Unable to assess 03/08/2020 2:49 PM EDT documented as of this encounter Miscellaneous Notes * Telephone Encounter - Rufina Sims MD - 03/21/2020 9:07 AM EDT Jonathan Boyer is a 54 yrs. established patient who presents for a telephone visit. CC/Reason for Visit: hospital d/c follow up HPI/Current issues or questions: Pt had b/l knee replacement at [facility]. He was doing well post-op but had complication of infection. Hewas started on keflex by ortho and has done well since. Had a return visit 03/14, note reviewed, xrays show stable hardware, mild effusion. Doing well with outpatient PT 3 x week. Pain well controlledwith OTC naproxen BID and tylenol. His ROM has been fairly well given post surgery. Uses cane only when outside just in case, but not really needing it. He does still feel stiffness in knee. Gets an infrequent nerve pain in his toes - usually one toe at a time, different toes. Almost always at night. Sharp, shooting on top of toe. Used to be few times year, but more frequently for now. He has gabapentin which he takes prn. REVIEW OF SYSTEMS: no fever, cough, dyspnea, myalgias, loss of smell or taste, diarrhea and see HPI PROBLEMS, PMH, PSH, FAMHX, SOC HISTORY: were reviewed in the electronic medical record MEDICATIONS: ??? Cholecalciferol, Vitamin D3, 50 mcg (2,000 unit) capsule TAKE 3 CAPSULES (6,000 UNITS TOTAL) BYMOUTH DAILY. ??? gabapentin 100 mg capsule ??? Mupirocin 2 % Ointment APPLY TOPICALLY 2 TIMES A DAY FOR 5 DAYS APPLY TOPICALLY INSIDE EACH NOSTRIL TWICE DAILY FOR 5 DAYS. ??? naproxen 500 mg tablet ??? tiZANidine 2 mg tablet ??? cephalexin (KEFLEX ORAL) Take by mouth ??? acetaminophen (TYLENOL) 325 mg capsule Take by mouth ??? omeprazole magnesium (PRILOSEC ORAL) Take by mouth ??? simvastatin 10 mg tablet TAKE 1 TABLET BY MOUTH EVERY DAY ??? MEN'S MULTI-VITAMIN ORAL Take 1 tablet by mouth daily Exam: Patient reported vitals: (if any): There were no vitals taken for this visit. Estimated body mass index is 34.77 kg/m?? as calculated from the following: Height as of 10/06/19: 5' 8.05 (1.728 m). Weight as of 10/06/19: 229 lb (103.9 kg). General impression: alert and comfortable ASSESSMENT / PLAN / DISCUSSION WITH PATIENT: 1. History of bilateral knee replacement Recovering well Continues with PT, uses cane when outside No recent falls Continue following with orthopedics Not requiring pain mgmt meds 2. Vitamin D deficiency Discuss supplement. Will check levels next time Other Treatment/Advice: none FOLLOW UP: as needed Time Spent: I spent 20 minutes with the patient during this virtual visit. Patient location: home I conducted this virtual visit from the office. I conducted this visit independently. documented in this encounter Plan of Treatment Upcoming Encounters Date Type Department Care Team (Late st Contact Info) Description 04/11/2025 8:00 AM EDT Office Visit [facility] [address] [place] [phone] Jaimee Espitia MD [address] [place] [phone] documented as of this encounter Visit Diagnoses Diagnosis History of bilateral knee replacement Vitamin D deficiency Unspecified vitamin D deficiency documented in this encounter Discontinued Medications Medication Sig Discontinue Reason Start Date End Da te cephalexin (KEFLEX ORAL)Indications:Prescribed by surgeon today, hasn't started Take by mouth Med List Clean-up 03/21/2020 documented as of this encounter Historical Medications * This list may reflect changes made after this encounter. cephalexin 500 mg capsule TAKE 1 CAPSULE (500 MG TOTAL) BY MOUTH 4 (FOUR) TIMES A DAY FOR 14 DAYS. 03/08/2020 11/27/2020 added in this encounter Care Teams Metal Fabrication Supervisor Relationship Specialty Start Date End Date Rufina Sims MD [address] [place] [phone] PCP - General Internal Medicine 02/02/18 09/22/22 Rufina Sims MD [address] [place] [phone] PCP - Payer 06/16/18 02/05/22 documented as of this encounter
--- OUTSIDE RECORDS SUMMARY | 2024-09-23 19:04 | XMS_ITS | Encounter Summary ---
Author Organization [facility] Address [address] [place] [address] Care Team Providers Care Odd Jobs Day Worker Name Role Phone Rufina Sims Md Primary Care Provider [phone] Rufina Sims Md Unavailable [phone] Reason for Referral * Specialty (Priority - w/in a Month ) - Closed Specialty Diagnoses / Procedures Referred By Contsaman valdez Referred To Contact Orthopedics Diagnoses Acute pain of right knee Primary osteoarthritis involving multiple joints Shyann Juares NP [address] [place] [address] Phone: tel: fax: [facility] [address] [place] [address] Phone: tel: Referral ID Status Reason Start Date Expiration Date Visits Re quested Visits Authorized [id number] Closed 04/16/2019 04/16/2020 3 3 Encounter Details Date Type Department Care Team (Latest Contact Info) Description 04/16/2019 1:00 PM EDT Urgent Care [facility] 2 [place] [address] Shyann Juares NP [address] [place] [address] Acute pain of right knee (Primary Dx); Primary osteoarthritis involving multiple joints Social History Tobacco Use Types Packs/Day Years [...] 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 Knee Pain or Injury: Care Instructions Your Care Instructions Injuries are a common cause of knee problems. Sudden (acute) injuries may be caused by a direct blow to the knee. They can also be caused by abnormal twisting, bending, or falling on the knee. Pain, bruising, or swelling may be severe, and may start within minutes of the injury. Overuse is another cause of knee pain. Other causes are climbing stairs, kneeling, and other activities that use the knee. Everyday wear and tear, especially as you get older, also can cause knee pain. Rest, along with home treatment, often relieves pain and allows your knee to heal. If you have a serious knee injury, you may need tests and treatment. Follow-up care is a blake part of your treatment and safety. Be sure to make and go to all appointments, and call your doctor if you are having problems. It's also a good idea to know your test resultsand keep a list of the medicines you take. How can you care for yourself at home? ?? Be safe with medicines. Read and follow all instructions on the label. ?? If the doctor gave you a prescription medicine for pain, take it as prescribed. ?? If you are not taking a prescription pain medicine, ask your doctor if you can take an ocvo-ebj-wkmssjh medicine. ?? Rest and protect your knee. Take a break from any activity that may cause pain. ?? Put ice or a cold pack on your knee for 10 to 20 minutes at a time. Put a thin cloth between theice and your skin. ?? Prop up a sore knee on a pillow when you ice it or anytime you sit or lie down for the next 3 days. Try to keep it above the level of your heart. This will help reduce swelling. ?? If your knee is not swollen, you can put moist heat, a heating pad, or a warm cloth on your knee. ?? If your doctor recommends an elastic bandage, sleeve, or other type of support for your knee, wear it as directed. ?? Follow your doctor's instructions about how much weight you can put on your leg. Use a cane, crutches, or a walker as instructed. ?? Follow your doctor's instructions about activity during your healing process. If you can do mildexercise, slowly increase your activity. ?? Reach and stay at a healthy weight. Extra weight can strain the joints, especially the knees andhips, and make the pain worse. Losing even a few pounds may help. When should you call for help? Call 911 anytime you think you may need emergency care. For example, call if: ? You have symptoms of a blood clot in your lung (called a pulmonary embolism). These may include: ?? Sudden chest pain. ?? Trouble breathing. ?? Coughing up blood. ??Call your doctor now or seek immediate medical care if: ? You have severe or increasing pain. ? Your leg or foot turns cold or changes color. ? You cannot stand or put weight on your knee. ? Your knee looks twisted or bent out of shape. ? You cannot move your knee. ? You have signs of infection, such as: ?? Increased pain, swelling, warmth, or redness. ?? Red streaks leading from the knee. ?? Pus draining from a place on your knee. ?? A fever. ? You have signs of a blood clot in your leg (called a deep vein thrombosis), such as: ?? Pain in your calf, back of the knee, thigh, or groin. ?? Redness and swelling in your leg or groin. ??Watch closely for changes in your health, and be sure to contact your doctor if: ? You have tingling, weakness, or numbness in your knee. ? You have any new symptoms, such as swelling. ? You have bruises from a knee injury that last longer than 2 weeks. ? You do not get better as expected. Where can you learn more? Go to http://www.[employer].net/[employer]/. Enter K195 in the search box to learn more about Knee Pain or Injury: Care Instructions. Current as of: July 05, 2017 Content Version: 11.8 ?? [id number] [employer]. Care instructions adapted under license by [employer]. Ifyou have questions about a medical condition or this instruction, always ask your healthcare professional. [employer] disclaims any warranty or liability for your use of this information. documented in this encounter Progress Notes * Shyann Juares NP - 04/16/2019 2:10 PM EDT HPI: Jonathan Boyer is a 53 yrs. 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 Sims, who presents to with complaints of constant moderate right medial > lateral knee pain for one day, increased with attempts to ambulate. He injured his R knee mountain biking yesterday. No actual trauma but was riding with his feet strapped in pedals, when his foot slipped out of the pedal, in an awkward movement, clipping his foot and causing him to hyperextend his knee, possibly dislocating itby report. He kept bicycling through his pain. He recalls mountain biking, as above, just before symptoms began. He has a past history of moderately advanced arthritis of both knees which he has known about for some time. Patient Active Problem List Diagnosis Code ??? Obesity (BMI 30.0-34.9) E66.9 ? ? Hyperlipidemia LDL goal <130 E78.5 ??? Primary osteoarthritis involving multiple joints M15.0 ??? Prostate cancer screening encounter, options and risks discussed Z12.5 ??? Family history of thyroid disease in sister Z83.49 ??? Family history of diabetes mellitus (DM) Z83.3 No Known Drug Allergies. Current Outpatient Prescriptions on File Prior to Visit: simvastatin 10 mg tablet Take 1 tablet by mouth daily MEN'S MULTI-VITAMIN ORAL Take 1 tablet by mouth daily zzcioteo-ewximit-mwit 149-hyal (GLUCOS CHOND CPLX ADVANCED ORAL) Take 1 tablet by mouth twice daily ROS: No constitutional symptoms; no other musculoskeletal or rheumatologic symptoms. EXAM: --Healthy male in no apparent distress. --Appropriately concerned. --VS as above. BP 132/74 Pulse 71 Temp 98.1 ??F (36.7 ??C) Resp 18 SpO2 98% Musculoskeletal: --Normal posture/moderately antalgic gait --Cannot easily bear weight due to medial knee pain R Knee exam: --Appearance: no visible deformity, erythema, or warmth. Mildly boggy. No pre- patella effusion. ? Small joint effusion. Mild bilateral JLT. --ROM: full with right patellofemerol crepitus; mild discomfort with pressure on patella. --Tests: Drawer and MacMurray signs negative but limited by pain, with no definite laxity. --Mild tenderness over medial > lateral collateral ligaments. --Normal strength and tone of quadriceps. Neurovascular to RLE intact. R Knee film today: STUDY: ??KNEE XRAY RIGHT 3 VIEWS ?? DATE OF EXAM: ??04/16/2019 1:51 PM HISTORY: ??Acute pain of right knee TECHNIQUE: ??AP, lateral and patellar sunrise views of the right knee were obtained. NUMBER OF IMAGES SUBMITTED: ??3 COMPARISON: ??12/29/2017 FINDINGS: Chronic narrowing of the medial compartment with new subcortical contour irregularities and sclerosis and chronic medial compartment osteophytes. Lateral and patellofemoral compartment joint spaces are maintained. No acute fracture. Small joint effusion. ? Impression: ? No acute fracture. Slight progression in osteoarthritis of the medial compartment of the knee. Small joint effusion. ASSESSMENT: Acute on chronic R knee pain. Suspect strain, superimposed on advanced tricompartmental osteoarthritis. PLAN: --Knee films - results reviewed with patient as above. --Given brochure on Knee Pain from [facility] website. --Patient education re: principles of RICE: Rest, Ice, Compression, and Elevation. Provided with GURU wrap and instructed in its use. --Recommended NWB status X 72 hours; then, slowly advanced WBS as tolerated. --Patient has crutches at home and claims he is proficient in their use. --Activity limitation recommendations were reviewed in detail with the patient. --Exercises to strengthen quadriceps, particularly vastus medialis, reviewed. --Avoid stressed flexion and exercises increasing patellofemoral stress. --Ibuprofen 600 mg po tid for 10 days with food or milk. He declined a prescription. --Patient education regarding medications actions, dosage, and side effects. --Orthopedics consultation as he indicates today that he is contemplating BARON which has been recommended to him in the past.. --Call back or return visit prn. Encouraged to call anytime if questions or concerns. documented in this encounter Plan of Treatment Upcoming Encounters Date Type Department Care Team (Late st Contact Info) Description 04/11/2025 8:00 AM EDT Office Visit [facility] [address] [place] [phone] Jaimee Espitia MD [address] [place] [phone] documented as of this encounter Procedures Procedure Name Priority Date/Time Associated Diagnosis Comments REFERRAL TO ORTHOPEDICS Routine 05/08/2019 Acute pain of right knee Primary osteoarthritis involving multiple joints KNEE XRAY RIGHT 3 VIEWS STAT 04/16/2019 1:51 PM EDT Acute pain of right knee Primary osteoarthritis involving multiple joints documented in this encounter Results * REFERRAL TO ORTHOPEDICS (05/08/2019) Shyann Saulo GUALLPA REFERRALS Final Resu lt * KNEE XRAY RIGHT 3 VIEWS (04/16/2019 1:51 PM EDT) Anatomical Region Laterality Modality Lower Extremity Computed Radiogr aphy 04/16/2019 1:56 PM EDT Impressions 04/16/2019 1:59 PM EDT No acute fracture. Slight progression in osteoarthritis of the medial compartment of the knee. Small joint effusion. Narrative 04/16/2019 1:59 PM EDT INTERPRETED BY: ??Neal De Jesus MD STUDY: ??KNEE XRAY RIGHT 3 VIEWS ?? DATE OF EXAM: ??04/16/2019 1:51 PM HISTORY: ??Acute pain of right knee TECHNIQUE: ??AP, lateral and patellar sunrise views of the right knee were obtained. NUMBER OF IMAGES SUBMITTED: ??3 COMPARISON: ??12/29/2017 FINDINGS: Chronic narrowing of the medial compartment with new subcortical contour irregularities and sclerosis and chronic medial compartment osteophytes. Lateral and patellofemoral compartment joint spaces are maintained. No acute fracture. Small joint effusion. Procedure Note Neal De Jesus MD - 04/16/2019 INTERPRETED BY: Neal De Jesus MD STUDY: KNEE XRAY RIGHT 3 VIEWS DATE OF EXAM: 04/16/2019 1:51 PM HISTORY: Acute pain of right knee TECHNIQUE: AP, lateral and patellar sunrise views of the right kneewere obtained. NUMBER OF IMAGES SUBMITTED: 3 COMPARISON: 12/29/2017 FINDINGS: Chronic narrowing of the medial compartment with new subcortical contour irregularities and sclerosis and chronic medial compartment osteophytes.Lateral and patellofemoral compartment joint spaces are maintained. No acutefracture. Small joint effusion. IMPRESSION: No acute fracture. Slight progression in osteoarthritis of the medial compartment of theknee. Small joint effusion. Shyanncolby GUALLPA X-RAY Final Resul t documented in this encounter Visit Diagnoses Diagnosis Acute pain of right knee- Primary Primary osteoarthritis involving multiple joints documented in this encounter Care Teams Odd Jobs Day Worker Relationship Specialty Start Date End Date Rufina Sims MD [address] [place] [phone] PCP - General Internal Medicine 02/02/18 09/22/22 Rufina Sims MD [address] [place] [phone] PCP - Payer 06/16/18 02/05/22 documented as of this encounter
--- OUTSIDE RECORDS SUMMARY | 2024-09-23 19:04 | XMS_ITS | Encounter Summary ---
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 Not on file Not on file documented as of this encounter Plan of Treatment Upcoming Encounters Date Type Department Care Team (Late Contact Info) Description 04/11/2025 8:00 AM EDT Office Visit [facility] [address] [place] [phone] Jaimee Espitia MD [address] [place] [phone] documented as of this encounter Visit Diagnoses Not on filedocumented in this encounter Care Teams Load Tallier Relationship Specialty Start Date End Date Rufina Sims MD [address] [place] [phone] PCP - General Internal Medicine 02/02/18 09/22/22 Rufina Sims MD [address] [place] [phone] PCP - Payer 06/16/18 02/05/22 documented as of this encounter
--- OUTSIDE RECORDS SUMMARY | 2024-09-23 19:04 | XMS_ITS | Encounter Summary ---
Author Organization [facility] Address [address] [place] [address] Care Team Providers Care Middle Card Tender Name Role Phone Rufina Sims Md Primary Care Provider [phone] Rufina Sims Md Unavailable Reason for Referral * Imaging (STAT) - Closed Specialty Diagnoses / Procedures Referred By Contac t Referred To Contact Diagnoses Right leg swelling Procedures US VENOUS DVT LOWER EXT RT Zach Wesley MD [address] [place] [address] Phone: tel: fax: Referral ID Status Reason Start Date Expiration Date Visits Re quested Visits Authorized [id number] Closed 02/06/2020 02/06/2021 1 1 Reason for Visit * Reason Comments Cellulitis Encounter Details Date Type Department Care Team (Late st Contact Info) Description 02/06/2020 11:00 AM EDT Office Visit [place] Internal Medicine [address] [place] [address] Zach Wesley MD [address] [place] [address] Cellulitis of right lower extremity (Primary Dx); Right leg swelling; Madsen's cyst of knee, right Social History Tobacco Use Types Packs/Day Years [...] 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 No / Unsure 02/06/2020 9:03 AM EDT documented as of this encounter Last Filed Vital Signs Vital Sign Reading Time Taken Comments Blood Pressure 118/66 02/06/2020 11:10 AM EDT Pulse 65 02/06/2020 11:10 AM EDT Temperature 37.1 ??C (98.7 ??F) 02/06/2020 11:10 AM E DT Respiratory Rate - - Oxygen Saturation 97% 02/06/2020 11:10 AM EDT Inhaled Oxygen Concentration - - Weight - - Height - - Body Mass Index - - documented in this encounter Patient Instructions * Patient Instructions* Zach Wesley MD - 02/06/2020 11:00 AM EDT Images from the original note were not included. Please get an ultrasound of your leg today - if it is negative we can try antibiotics but if it is positive I'l put you on blood thinners. I recommend probiotics whenever a person takes an antibiotic. Proobiotics are beneficial bacteria -because antibiotics can't always be targeted, they often kill helpful bacteria and not just the dangerous ones. Probiotics are not generally a prescription medicine, and often insurance doesn't pay for them. Common brands are Cultuerelle and Align - these are pills. There are some foods that contain probiotics as well, such as Activia yogurt. Either way, elevate the leg above the heart if possible to get the swelling down. Patient Education Patient Education Cellulitis: Care Instructions Your Care Instructions Cellulitis is a skin infection caused by bacteria, most often strep or staph. It often occurs aftera break in the skin from a scrape, cut, bite, or puncture, or after a rash. Cellulitis may be treated without doing tests to find out what caused it. But your doctor may do tests, if needed, to look for a specific bacteria, like methicillin-resistant Staphylococcus aureus (MRSA). The doctor has checked you carefully, but problems can develop later. If you notice any problems ornew symptoms, get medical treatment right away. Follow-up care is a blake part of your treatment and safety. Be sure to make and go to all appointments, and call your doctor if you are having problems. It's also a good idea to know your test resultsand keep a list of the medicines you take. How can you care for yourself at home? ?? Take your antibiotics as directed. Do not stop taking them just because you feel better. You need to take the full course of antibiotics. ?? Prop up the infected area on pillows to reduce pain and swelling. Try to keep the area above thelevel of your heart as often as you can. ?? If your doctor told you how to care for your wound, follow your doctor's instructions. If you did not get instructions, follow this general advice: ?? Wash the wound with clean water 2 times a day. Don't use hydrogen peroxide or alcohol, which canslow healing. ?? You may cover the wound with a thin layer of petroleum jelly, such as Vaseline, and a nonstick bandage. ?? Apply more petroleum jelly and replace the bandage as needed. ?? Be safe with medicines. Take pain medicines exactly as directed. ?? If the doctor gave you a prescription medicine for pain, take it as prescribed. ?? If you are not taking a prescription pain medicine, ask your doctor if you can take an [id number]-[id number] medicine. To prevent cellulitis in the future ?? Try to prevent cuts, scrapes, or other injuries to your skin. Cellulitis most often occurs wherethere is a break in the skin. ?? If you get a scrape, cut, mild burn, or bite, wash the wound with clean water as soon as you sadia help avoid infection. Don't use hydrogen peroxide or alcohol, which can slow healing. ?? If you have swelling in your legs (edema), support stockings and good skin care may help preventleg sores and cellulitis. ?? Take care of your feet, especially if you have diabetes or other conditions that increase the risk of infection. Wear shoes and socks. Do not go barefoot. If you have athlete's foot or other skin problems on your feet, talk to your doctor about how to treat them. When should you call for help? Call your doctor now or seek immediate medical care if: ? You have signs that your infection is getting worse, such as: ?? Increased pain, swelling, warmth, or redness. ?? Red streaks leading from the area. ?? Pus draining from the area. ?? A fever. ? You get a rash. ??Watch closely for changes in your health, and be sure to contact your doctor if: ? You do not get better as expected. Where can you learn more? Go to http://www.[employer].Searchspace/[employer]/. Enter X309 in the search box to learn more about Cellulitis: Care Instructions. Current as of: December 01, 2017 Content Version: 11.8 ?? 0696-1357 [employer]. Care instructions adapted under license by [employer]. Ifyou have questions about a medical condition or this instruction, always ask your healthcare professional. [employer] disclaims any warranty or liability for your use of this information. Patient Education Deep Vein Thrombosis: Care Instructions Your Care Instructions A deep vein thrombosis (DVT) is a blood clot in certain veins of the legs, pelvis, or arms. Blood clots in these veins need to be treated because they can get bigger, break loose, and travel through the bloodstream to the lungs. A blood clot in a lung can be life-threatening. The doctor may have given you a blood thinner (anticoagulant). A blood thinner can stop the blood clot from growing larger and prevent new clots from forming. You will need to take a blood thinner for 3 to 6 months or longer. The doctor has checked you carefully, but problems can develop later. If you notice any problems ornew symptoms, get medical treatment right away. Follow-up care is a blake part of your treatment and safety. Be sure to make and go to all appointments, and call your doctor if you are having problems. It's also a good idea to know your test resultsand keep a list of the medicines you take. How can you care for yourself at home? ?? Take your medicines exactly as prescribed. Call your doctor if you think you are having a problem with your medicine. ?? If you are taking a blood thinner, be sure you get instructions about how to take your medicine safely. Blood thinners can cause serious bleeding problems. ?? Wear compression stockings if your doctor recommends them. These stockings are tighter at the feet than on the legs. They may reduce pain and swelling in your legs. But there are different types of stockings, and they need to fit right. So your doctor will recommend what you need. ?? When you sit, use a pillow to raise the arm or leg that has the blood clot. Try to keep it abovethe level of your heart. When should you call for help? Call 911 anytime you think you may need emergency care. For example, call if: ? You passed out (lost consciousness). ? You have symptoms of a blood clot in your lung (called a pulmonary embolism). These include: ?? Sudden chest pain. ?? Trouble breathing. ?? Coughing up blood. ??Call your doctor now or seek immediate medical care if: ? You have new or worse trouble breathing. ? You are dizzy or lightheaded, or you feel like you may faint. ? You have symptoms of a blood clot in your arm or leg. These may include: ?? Pain in the arm, calf, back of the knee, thigh, or groin. ?? Redness and swelling in the arm, leg, or groin. ??Watch closely for changes in your health, and be sure to contact your doctor if: ? You do not get better as expected. Where can you learn more? Go to http://www.[employer].net/atriushealth/. Enter D894 in the search box to learn more about Deep Vein Thrombosis: Care Instructions. Current as of: July 06, 2017 Content Version: 11.8 ?? [id number] [employer]. Care instructions adapted under license by [employer]. Ifyou have questions about a medical condition or this instruction, always ask your healthcare professional. [employer] disclaims any warranty or liability for your use of this information. documented in this encounter Ordered Prescriptions Prescription Sig Dispense Quantity Refills Last Filled Start Date End Date cephalexin 500 mg capsule Take 1 capsule by mouth three times daily for 7 days 21 capsule 02/06/2020 0 documented in this encounter Progress Notes * Zach Wesley MD - 02/06/2020 11:00 AM EDT 1 1/2 weeks of soreness in the right lower leg - he has a baseline problem with bilaterla knee arthritis. His romo looks red and there is swelling. It hurts a little to walk. No fever. He has felt a a little run down lately - no recent surgery. He was noted to be sort of pale. The leg hurts. Estimated body mass index is 34.77 kg/m?? as calculated from the following: Height as of 10/06/19: 5' 8.05 (1.728 m). Weight as of 10/06/19: 229 lb (103.9 kg). Specialty Problems None Allergies: Review of patient's allergies indicates no known food/drug allergies. Past Medical History: Diagnosis Date ??? Pneumonia 1993 Hospitalized X 5 days Past Surgical History: Procedure Laterality Date ??? PAST SURGICAL HISTORY OF: 2007 Ulnar Nerve Entrapment ??? PAST SURGICAL HISTORY OF: 2005 Arthroscopic Surgery for Meniscus ??? PAST SURGICAL HISTORY OF: 1990 Anal Fistula/Abscess ??? PAST SURGICAL HISTORY OF: R Shoulder Family History Problem Relation Name Age of Onset ??? Diabetes - Type II Father ??? Hyperlipidemia Father ??? Hypertension Father ??? Cancer - Melanoma Father ??? Colon Polyp Father ??? Other (Diverticulitis) Father ??? Psych - Depression Mother ??? Other (head injury) Mother ??? Thyroid Disorder Sister half-sister ??? Cancer - Colon Neg HX ??? Cancer - Prostate Neg HX ??? Cancer - Breast Neg HX ??? Cancer - Ovarian Neg HX ??? CAD/PVD - Early Neg HX Social History Tobacco Use ??? Smoking status: Never Smoker ??? Smokeless tobacco: Never Used Substance Use Topics ??? Alcohol use: Yes Comment: 3-4 per week ??? Drug use: No Comment: never IVDU Current Outpatient Medications Medication Sig ??? cephalexin 500 mg capsule Take 1 capsule by mouth three times daily for 7 days ??? simvastatin 10 mg tablet TAKE 1 TABLET BY MOUTH EVERY DAY ??? PROAIR HFA 90 mcg/actuation HFA Aerosol Inhaler Inhale 2 puffs every 6 hours as needed for wheezing (ins pref brand) ??? MEN'S MULTI-VITAMIN ORAL Take 1 tablet by mouth daily Blood pressure 118/66, pulse 65, temperature 98.7 ??F (37.1 ??C), SpO2 97 %. Comfortable Right lower leg - 1+ edema with a little redness and heat and tenderness at the lower part near an abrasion - the calf is a little tender and there is swelling in the popliteal fossa US - no DVT, Madsen's cyst Cellulitis - could be from a leaking cyst, but also could be from cellulitis - no risks for MRSA for per UTD empiric keflex tid - discussed with pt documented in this encounter Plan of Treatment Upcoming Encounters Date Type Department Care Team (Late st Contact Info) Description 04/11/2025 8:00 AM EDT Office Visit [place] Internal Medicine [address] [place] [id number] Jaimee Espitia MD [address] [place] [id number] documented as of this encounter Results * US VENOUS DVT LOWER EXT RT (02/06/2020 1:29 PM EDT) Anatomical Region Laterality Modality Lower Extremity Ultrasound 02/06/2020 1:31 PM EDT Impressions 02/06/2020 1:36 PM EDT No deep venous thrombosis is identified in the right leg. 3.5 x 0.9 x 2 cm fluid collection in the right popliteal fossa which may represent a Madsen's cyst. Narrative 02/06/2020 1:36 PM EDT INTERPRETED BY: Selma Painting MD STUDY: US VENOUS DVT LOWER EXT RT ?? DATE OF EXAM: 02/06/2020 1:29 PM HISTORY: Right leg swelling COMPARISON: None. TECHNIQUE: Two-dimensional real-time grayscale ultrasound of the right greater saphenous, common femoral, femoral, popliteal and calf veins was performed, with color and spectral Doppler analysis, utilizing compression and augmentation maneuvers. Imaging is suboptimal due to the body habitus. FINDINGS: Common femoral vein: Normal compressibility and no intraluminal thrombus. Greater saphenous/femoral venous confluence: Normal compressibility and no intraluminal thrombus. Femoral vein: Normal compressibility and no intraluminal thrombus. Popliteal vein: Normal compressibility and no intraluminal thrombus. Calf veins: Visualized posterior tibial calf veins demonstrate normal compressibility and no intraluminal thrombus is visualized. The peroneal veins could not be well visualized. Normal color flow and pulsed Doppler wave forms, with appropriate augmentation, respiratory variation and Valsalva response elicited. Superficial thrombophlebitis: None identified. Soft tissues: There is an approximately 3.5 x 0.9 x 2 cm anechoic fluid collection in the right popliteal fossa which may represent a Madsen's cyst. Additional findings: None. Procedure Note Selma Painting MD - 02/06/2020 INTERPRETED BY: Selma Painting MD STUDY: US VENOUS DVT LOWER EXT RT DATE OF EXAM: 02/06/2020 1:29 PM HISTORY: Right leg swelling COMPARISON: None. TECHNIQUE: Two-dimensional real-time grayscale ultrasound of the rightgreater saphenous, common femoral, femoral, popliteal and calf veins wasperformed, with color and spectral Doppler analysis, utilizing compression andaugmentation maneuvers. Imaging is suboptimal due to the body habitus. FINDINGS: Common femoral vein: Normal compressibility and no intraluminalthrombus. Greater saphenous/femoral venous confluence: Normal compressibility andno intraluminal thrombus. Femoral vein: Normal compressibility and no intraluminal thrombus. Popliteal vein: Normal compressibility and no intraluminal thrombus. Calf veins: Visualized posterior tibial calf veins demonstrate normal compressibility and no intraluminal thrombus is visualized. The peronealveins could not be well visualized. Normal color flow and pulsed Doppler wave forms, with appropriateaugmentation, respiratory variation and Valsalva response elicited. Superficial thrombophlebitis: None identified. Soft tissues: There is an approximately 3.5 x 0.9 x 2 cm anechoic fluid collection in the right popliteal fossa which may represent a Madsen'scyst. Additional findings: None. IMPRESSION: No deep venous thrombosis is identified in the right leg. 3.5 x 0.9 x 2 cm fluid collection in the right popliteal fossa which may representa Madsen's cyst. us Zach Wesley [facility] F inal Result documented in this encounter Visit Diagnoses Diagnosis Cellulitis of right lower extremity- Primary Cellulitis and abscess of leg, except foot Right leg swelling Madsen's cyst of knee, right Right leg swelling documented in this encounter Discontinued Medications Medication Sig Discontinue Reason Start Date End Da te guaifenesin-codeine (GUAIFENESIN AC) 10-100 mg/5 mL Liquid Take 5-10 mL by mouth as instructed every 4-6 hours as needed for cough Medication No Longer Necessary 08/24/2019 02/06/2020 [id number] (GLUCOS CHOND CPLX ADVANCED ORAL) Take 1 tablet by mouth twice daily Medication No Longer Necessary 02/06/2020 documented as of this encounter Care Teams Middle Card Tender Relationship Specialty Start Date End Date Rufina Sims MD [address] [place] [address] PCP - General Internal Medicine 02/02/18 09/22/22 Rufina Sims MD [address] [place] [address] PCP - Payer 06/16/18 02/05/22 documented as of this encounter
--- OUTSIDE RECORDS SUMMARY | 2024-09-23 19:04 | XMS_ITS | Encounter Summary ---
Author Organization [facility] Address [address] [place] [address] Care Team Providers Care Figurine Maker Name Role Phone Rufina Sims Md Primary Care Provider [phone] Rufina Sims Md Unavailable [phone] Reason for Referral * Specialty (Non Urgent - w/in 3 Months) - Closed Specialty Diagnoses / Procedures Referred By Contsaman t Referred To Contact Nutrition Diagnoses Obesity (BMI 30.0-34.9) Rufina Sims MD [address] [place] [id number] Phone: tel: fax: [address] [address] Phone: tel: Referral ID Status Reason Start Date Expiration Date Visits Re quested Visits Authorized [id number] Closed 10/06/2019 10/06/2020 3 3 Scheduling Instructions This referral may allow patient to self-book online. Otherwise, normal referral management procedures will apply. Reason for Visit * Reason Comments Complete Physical Exam Encounter Details Date Type Department Care Team ([facility] st Contact Info) Description 10/06/2019 2:10 PM EST [facility] Internal Medicine [address] [place] [phone] Rufina Sims MD Encounter for annual general medical examination without abnormal findings in adult (Primary Dx); Hyperlipidemia LDL goal <130; Family history of thyroid disease in sister; Family history of diabetes mellitus (DM); Obesity (BMI 30.0-34.9) Social History Tobacco Use Types Packs/Day Years [...] 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 Not on file Not on file documented as of this encounter Last Filed Vital Signs Vital Sign Reading Time Taken Comments Blood Pressure 132/78 10/06/2019 2:11 PM EST Pulse 64 10/06/2019 2:11 PM EST Temperature 36.8 ??C (98.2 ??F) 10/06/2019 2:11 PM ES T Respiratory Rate - - Oxygen Saturation 97% 10/06/2019 2:11 PM EST Inhaled Oxygen Concentration - - Weight 103.9 kg (229 lb) 10/06/2019 2:11 PM EST Height 172.8 cm (5' 8.05) 10/06/2019 2:11 PM ES T Body Mass Index 34.77 10/06/2019 2:11 PM EST documented in this encounter Patient Instructions * Patient Instructions* Rufina Sims MD - 10/06/2019 2:10 PM EST Images from the original note were not included. General health recommendations: I would like to review my health care recommendations for men from age 50 to 59. Periodic health review: ?? I recommend a periodic health review (formerly called a ???complete physical exam?? ) every year. At this visit, I update your health history, discuss your risk factors for current and future illnesses, review and update your immunizations, and perform appropriate preventative screening tests. We may also discuss acute health problems at these visits, though they generally are not considered apart of the periodic health review visit. Depending on your insurance, you may be billed for a copay when your visit includes evaluation and management of acute health problems. Labs and other screening procedures: Colorectal cancer: Beginning at age 50, regardless of risk factors, I recommend screening for (1) colorectal polyps (which can progress to cancer if not removed) and (2) colon cancer. Colonoscopy remains the most effective approach to screening, but requires a rather intense laxative prep and sedation to perform. It is considered the gold standard of colorectal screening, and always recommended for high-risk patients. When normal in a patient of average risk, the procedure can be done every 10 years. The presence of family history of colonic polyps or colon cancer or the discovery of polyps during colonoscopy may require earlier repeat screening. Other reasonable screening options include fl exible sigmoidoscopy every 5 years, the FIT (fecal immunochemical test) every year, Cologuard (a stool test checking for DNA from cancer or precancerous polyps) every 3 years, and combined testing with flexible sigmoidoscopy and FIT, and. Once you choose a pathway of screening, I will help you keeptrack of when your next screening procedure is due. Prostate cancer: Screening for prostate cancer with the PSA (prostate-specific antigen) test is available, though the benefits of this screening may be outweighed by its potential harms for most men.The test leads doctors to find more cases of prostate cancer. Most of these cancers would not be life- threatening, but may result in aggressive treatment (surgery or radiotherapy), which may have treatment complications (such as erectile dysfunction, incontinence, and bowel problems). Without the screening test, many of these men would go through their lives and eventually of other causes without knowing of the diagnosis or having complications of treatment. I recommend that you have the test only if you would like to have the PSA test to allow for early detection of prostate cancer and are willing to take on these risks. ?? Skin cancer: Examination of the skin should occur at routine health maintenance visits: risk factors include personal or family history of skin cancer, repeated sunburns early in life, chronic exposure to the sun, certain types of moles and/or a large number of rosales, light skin, hair, and/or light eye color, and sun-sensitive skin. To protect yourself from future skin cancer, avoid sun exposure and do not use indoor tanning lights. When any sun exposure is anticipated, even if very brief, your skin should be covered with clothing and/or sunscreen with SPF factor of at least 15. ?? Weight assessment: I currently use the standard body mass index (BMI) determination to assess your weight. Generally accepted values include: BMI INTERPRETATION <18.5 Underweight 18.5-24.9 Normal 25.0-29.9 Overweight 30.0-34.9 Obesity-Grade I 35.0-39.9 Obesity-Grade II >/= 40.0 Extreme Obesity-Grade III If you are concerned with your classification, please discuss with me. ?? Cholesterol: I recommend a cholesterol and HDL (good cholesterol) for all patients every 5 years. Commonly, these test results are obtained in a complete lipid profile, usually done after at leasta nine-hour fast, though they may be obtained non-fasting in many patients. In the presence of other cardiovascular risk factors, high LDL (bad) cholesterol, or low HDL (good) cholesterol, more frequent screening may be indicated. ?? Diabetes: I recommend screening for diabetes every three years regardless of risk factors, and more frequently in the presence of risk factors, including obesity, previous elevated glucose, and being overweight with other predisposing conditions (physical inactivity, hypertension, hypercholesterolemia, - [place], , , or ancestry, or first degree relative with diabetes). ?? Hypertension (high blood pressure): I recommend a blood pressure check at least every two years,completed at every medical encounter. If your reading is elevated, you should always return for a repeat blood pressure check within a month. ?? Eye exam for glaucoma: I recommend an eye exam to screen for glaucoma every two to four years, with more frequent exams dependent on the recommendation of your sales incentive analyst or senior administrative associate. Infectious Disease Screening: ??? Chlamydia and gonorrhea: I recommend screening for chlamydia and gonorrhea when risk for infection exists. Risk factors include inconsistent use of condoms, new or multiple sex partners since thelast test, history of and/or current sexually transmitted infection, and having a partner with other sexual partner(s). ??? Syphilis: I recommend screening for syphilis when specific risk factors exist. ?? Hepatitis B and hepatitis C: I recommend testing for all patients with risk factors for hepatitis B and C, including intravenous drug use, liver disease, and tattoo or body piercing by non-sterileneedles. The CDC recommends a one-time test for hepatitis C for all previously untested baby boomers, defined as those born between 1945 and 1965. Patients at risk for hepatitis B may receive the hepatitis B or the hepatitis A/B vaccination series. There is no vaccination available to prevent hepatitis C. ??? HIV: The CDC recommends having at least one routine HIV test. You will need to complete a consent form before you have the test, since you are required to acknowledge that the result will be partof your medical record. ??? Tuberculosis (TB): I recommend screening for patients at high risk of tuberculosis, including: having close contact with someone with known or suspected TB; having HIV infection; coming from a country where TB is very common; having injected illicit drugs; living in places where TB is more common (e.g., shelters, migrant farm camps, prisons); and working in health care. General counseling and guidance: ?? Alcohol use: up to two drinks (one drink is defined as 5 oz. glass of wine, 12 oz. glass of beer, or 2 oz. of hard liquor) per day is considered safe for men. ?? Smoking: No amount of tobacco use is considered safe. If you smoke, please consider stopping now. I recommend that you use [employer]. I can place a referral, and they will call, or you can directly sign on to http://quitworks.[employer].org/cgefmmt-tr-wektlgezq.html. Also, I can help youchoose among various medications to help you quit. Bone Health: ?? Your daily diet should include 1000 mg calcium and at least 800 units (ideally 1000 units) vitamin D. Calcium is best provided in the diet; questions remain about the balance of benefits and risksof calcium pills. Calcium pills may improve bone density, but carry an increased risk of kidney stones and perhaps coronary artery disease and peripheral vascular disease. Regular and frequent consumption of dairy products do not carry the same risks, so are always favored over supplemental pills. Other sources of calcium include fortified orange juice, soy milk, tofu processed with calcium sulfate, soy yogurt, myron greens, kale, blackstrap molasses, black-eyed peas, and soybeans. Healthy nutrition: ?? Your daily diet should include 2-3 servings of vegetables and 2-3 servings of fruit (fresh or frozen in both categories are fine) Avoid sugared sodas and fruit juices; keep processed foods to a minimum. ?? Choose breads, crackers, cereals, and snack bars high in fiber from whole grains, nuts, and seeds. Pay attention to salt content of foods and try to keep your total daily intake to less than 2400 mg (expressed on all packages as milligrams of sodium per serving.) ?? Choose low fat dairy products and healthier protein sources such as chicken and fish. Avoid foods that are fried and limit your intake of higher fat meats such as beef and pork (including ham, macias, sausages) to no more often than 1-2 times per week. Prevention of heart attacks, strokes, and colorectal cancer (aspirin): The [place] [employer] and [place] [employer] Association recommend that patients age 40-70at high risk of heart attacks and strokes but not at increased bleeding risk might consider taking aspirin 81 mg daily for prevention of these problems. If you are currently taking aspirin and wish to stop, or not taking it and wish to start, please discuss your decision with me before you make any changes. ?? Depression: ?? Depression increases your risk of physical illnesses, and physical illnesses may make depressionworse. Symptoms of depression include: a sad or gloomy mood, lack of pleasure in activities you previously enjoyed, difficulties managing your weight, aerial photogrammetrist awakening with inability to returnto sleep or excessive sleeping, agitation or moving so slow that others notice, difficulty concentrating, fatigue, or mental slowness. Please let me know if you experience any of these symptoms. Exercise: ?? Regular exercise helps prevent many health problems, and will decrease your risk of cardiovascular disease and osteoporosis. It is best to include aerobic exercise to prevent heart disease and weight-bearing exercise, including walking, to prevent thinning of your bones. I urge you to schedule and complete 150 minutes of moderate intensity exercise each week. You can exercise in any way that is suitable for your schedule. The [place] [employer] Association and [place] College of Sports Medicinedefine moderate intensity exercise as activity that will produce a heart rate of 70% of one's age-adjusted peak heart rate. To determine your target heart rate, use the following formula: your peak heart rate = 220 - your age your target heart rate = 0.7 x your peak heart rate Biking, raking leaves, brisk walking, and vacuuming are examples of such activities. Safety/Injury and Violence Prevention: ?? It is essential that you feel safe (free from fear of or actual physical, verbal, or sexual abuse). If you do not feel safe for any reason, including fear of a partner, risks in the home, or threats from outside the home (such as your workplace), please let me know, and we can discuss how best to keep you safe. Other preventable health risks may occur while you are involved in recreational activities, such as cycling, skiing or skating - always take appropriate precautions, such as wearing helmets and other appropriate protective gear. When in a car, always wear seatbelts, and avoid cellphone conversations, especially texting or other use that diverts your concentration from driving. Make sure your home is free from unnecessary risks and is equipped with working carbon monoxide detectors and smoke alarms. If you have firearms in the home, make sure they are always kept unloaded, securely locked, used only by persons with adequate training, and kept away from children. In most cases, handgun owners would be safer with their guns removed from the home. Needless to say, conflict resolution should never include the use of firearms. ?? Reference numbers for ongoing or emerging risks include National Domestic Violence Hotline at 2-636-457-SAFE and [facility]'s National Child Abuse Hotline at 0-485-4-A-CHILD ( ). Immunizations: ?? Keep your immunizations up to date. All adults require tetanus-diphtheria booster every 10 years, with use of Tdap (tetanus, diphtheria, and attenuated pertussis/whooping cough) vaccine on one occasion in adulthood. ?? I recommend a yearly flu shot, the best way of preventing infection with the influenza virus, for all patients. I recommend that patients age 50 and above receive shingles (herpes zoster) vaccine. About a third of people get shingles sometime in their lifetime, with increasing frequency of occurrence from age 50 to the 80s. This disease, resulting from reactivation of the chicken pox virus several years after chicken pox occurred, includes a painful rash located in a band on one side of the body or face. 20% of patients have a persistently painful neuralgia after the rash clears up. Shingrix, the currently recommended vaccine, is more than 90% effective in preventing shingles in all age groups, and similarly effective in preventing this complication. Shingrix is a two-dose vaccine series, and is much more effective than Zostavax, a one dose vaccine. Shingrix should be given even to patients who have previously received Zostavax. ?? Other vaccinations depend on your risks and circumstances. Have a safe and healthy year, RUFINA SIMS MD Patient Education Low Back Pain: Exercises Your Care Instructions Here are some examples of typical rehabilitation exercises for your condition. Start each exercise slowly. Ease off the exercise if you start to have pain. Your doctor or physical therapist will tell you when you can start these exercises and which ones will work best for you. How to do the exercises Press-up 1. Lie on your stomach, supporting your body with your forearms. 2. Press your elbows down into the floor to raise your upper back. As you do this, relax your stomach muscles and allow your back to arch without using your back muscles. As your press up, do not letyour hips or pelvis come off the floor. 3. Hold for 15 to 30 seconds, then relax. 4. Repeat 2 to 4 times. Alternate arm and leg (bird dog) exercise 1. Start on the floor, on your hands and knees. 2. Tighten your belly muscles. 3. Raise one leg off the floor, and hold it straight out behind you. Be careful not to let your hipdrop down, because that will twist your trunk. 4. Hold for about 6 seconds, then lower your leg and switch to the other leg. 5. Repeat 8 to 12 times on each leg. 6. Over time, work up to holding for 10 to 30 seconds each time. 7. If you feel stable and secure with your leg raised, try raising the opposite arm straight out infront of you at the same time. Ovbb-iz-ygubz exercise 1. Lie on your back with your knees bent and your feet flat on the floor. 2. Bring one knee to your chest, keeping the other foot flat on the floor (or keeping the other legstraight, whichever feels better on your lower back). 3. Keep your lower back pressed to the floor. Hold for at least 15 to 30 seconds. 4. Relax, and lower the knee to the starting position. 5. Repeat with the other leg. Repeat 2 to 4 times with each leg. 6. To get more stretch, put your other leg flat on the floor while pulling your knee to your chest. Curl-ups 1. Lie on the floor on your back with your knees bent at a 90-degree angle. Your feet should be flat on the floor, about 12 inches from your buttocks. 2. Cross your arms over your chest. If this bothers your neck, try putting your hands behind your neck (not your head), with your elbows spread apart. 3. Slowly tighten your belly muscles and raise your shoulder blades off the floor. 4. Keep your head in line with your body, and do not press your chin to your chest. 5. Hold this position for 1 or 2 seconds, then slowly lower yourself back down to the floor. 6. Repeat 8 to 12 times. Pelvic tilt exercise 1. Lie on your back with your knees bent. 2. Brace your stomach. This means to tighten your muscles by pulling in and imagining your belly button moving toward your spine. You should feel like your back is pressing to the floor and your hips and pelvis are rocking back. 3. Hold for about 6 seconds while you breathe smoothly. 4. Repeat 8 to 12 times. Heel dig bridging 1. Lie on your back with both knees bent and your ankles bent so that only your heels are digging into the floor. Your knees should be bent about 90 degrees. 2. Then push your heels into the floor, squeeze your buttocks, and lift your hips off the floor until your shoulders, hips, and knees are all in a straight line. 3. Hold for about 6 seconds as you continue to breathe normally, and then slowly lower your hips back down to the floor and rest for up to 10 seconds. 4. Do 8 to 12 repetitions. Hamstring stretch in doorway 1. Lie on your back in a doorway, with one leg through the open door. 2. Slide your leg up the wall to straighten your knee. You should feel a gentle stretch down the back of your leg. 3. Hold the stretch for at least 15 to 30 seconds. Do not arch your back, point your toes, or bend either knee. Keep one heel touching the floor and the other heel touching the wall. 4. Repeat with your other leg. 5. Do 2 to 4 times for each leg. Hip flexor stretch 1. Kneel on the floor with one knee bent and one leg behind you. Place your forward knee over your foot. Keep your other knee touching the floor. 2. Slowly push your hips forward until you feel a stretch in the upper thigh of your rear leg. 3. Hold the stretch for at least 15 to 30 seconds. Repeat with your other leg. 4. Do 2 to 4 times on each side. Wall sit 1. Stand with your back 10 to 12 inches away from a wall. 2. Lean into the wall until your back is flat against it. 3. Slowly slide down until your knees are slightly bent, pressing your lower back into the wall. 4. Hold for about 6 seconds, then slide back up the wall. 5. Repeat 8 to 12 times. Follow-up care is a blake part of your treatment and safety. Be sure to make and go to all appointments, and call your doctor if you are having problems. It's also a good idea to know your test resultsand keep a list of the medicines you take. Where can you learn more? Go to http://www.[employer].net/vufindealth/. Enter Z938 in the search box to learn more about Low Back Pain: Exercises. Current as of: July 14, 2017 Content Version: 11.8 ?? [id number] [employer]. Care instructions adapted under license by [employer]. Ifyou have questions about a medical condition or this instruction, always ask your healthcare professional. [employer] disclaims any warranty or liability for your use of this information. documented in this encounter Progress Notes * Rufina Sims MD - 10/06/2019 2:10 PM EST Jonathan Boyer is a 54 yrs. old male presenting for complete physical exam. HPI: Has b/l knee arthritis - severe medially. Very painful. Hard to walk or stand for long time. Has been seen by Dr. Heart here. went to [facility] for 2nd opinion. Being followed by [facility] ortho. As such he has been gaining weight. Planning on surgery. ROS Constitutional: Negative for chills, fatigue, fever??and unexpected weight change. HENT: Negative for ear pain, sinus pain, sneezing, tinnitus??and trouble swallowing. ?? Eyes: Negative. ?? Respiratory: Negative for cough, shortness of breath??and wheezing. ?? Cardiovascular: Negative for chest pain, palpitations??and leg swelling. Gastrointestinal: Negative for abdominal pain, constipation, diarrhea, nausea??and vomiting. Endocrine: Negative. ?? Genitourinary: Negative for dysuria, frequency, genital sores, hematuria. Musculoskeletal: Negative for arthralgias, back pain??and gait problem. Allergic/Immunologic: Negative. ?? Neurological: Negative for dizziness??and headaches. Hematological: Negative. ?? Psychiatric/Behavioral: negative Patient Active Problem List Diagnosis Code ??? [...] ??? PAST SURGICAL HISTORY OF: R Shoulder No Known Drug Allergies. Current Outpatient Medications Medication Sig ??? PROAIR HFA 90 mcg/actuation HFA Aerosol Inhaler Inhale 2 puffs every 6 hours as needed for wheezing (ins pref brand) ??? guaifenesin-codeine (GUAIFENESIN AC) 10-100 mg/5 mL Liquid Take 5-10 mL by mouth as instructed every 4-6 hours as needed for cough ??? simvastatin 10 mg tablet Take 1 tablet by mouth daily ??? MEN'S MULTI-VITAMIN ORAL Take 1 tablet by mouth daily ??? mmxrxcrp-wdhjlxz-bukm 149-hyal (GLUCOS CHOND CPLX ADVANCED ORAL) Take 1 tablet by mouth twice daily Family History Problem Relation Name Age of [...] CAD/PVD - Early Neg HX Social History Patient does not qualify to have social determinant information on file (likely too young). 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 Mountain biking on weekends. 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 Td booster q10yrs UTD Last Flu shot administered on 07/04/2019 Physical Exam: BP 132/78 Pulse 64 Temp 98.2 ??F (36.8 ??C) Ht 5' 8.05 (1.728 m) Wt 229 lb (103.9 kg) SpO2 97% BMI 34.77 kg/m?? GEN: WNWD NAD INTEG: Anict without rash, xanthoma or ecchymosis HEAD: NCAT EYES: Sclera anicteric. PERRL. EOM intact ENMT: TMs and canals WNL. Gross hearing intact Nasal mucosa WNL. MMM - No lesions. Tongue midline Posterior pharynx benign NECK: FROM. No thyromegaly. LYMPH: No mikayla-auricular, cervical, supraclavicular, epitrochlear, axillary, or inguinal lymphadenopathy CARDIAC: RRR. Normal S1S2. No M/R/C/G No JVD. Carotid upstrokes brisk without bruit PULM: CTAB, no wheezing/rales/rubs. No respiratory distress ABD: Soft, non-tender, non-distended. +BS. No organomegaly. BACK: No CVA/Spinal tenderness EXT: No clubbing, cyanosis, edema, 2+ DP and PT pulses b/l NEURO: Mental status: A&O, good insight and judgement; cranial nerves: II-XII intact; sensory: equal bilaterally; motor: 5/5 bilaterally in UE/LE; DTRs: 2+ in all ext; gait normal. A/P: Jonathan Boyer is a 54 yrs. yo M presenting for annual CPE. PMH, FmHx, and Sohx updated. Reviewed allergies and meds. Healthy diet and exercising discussed and encouraged. Routine guidelines for age group discussed. Recommended to return for annual CPE in 1 yr. Labs today. Will likely get surgery by [facility] ortho for his b/l knee but will let me know if he needs a referral. I'm ok with referring him there. Referral to commissioned police officer. Advised to try [facility] as well. Emphasized water aerobics and swimming. Low back pain - exam benign. Likely 2/2 severe knee OA and weight gain (central mainly), will work on weight loss, and stretches daily. documented in this encounter Plan of Treatment Upcoming Encounters Date Type Department Care Team (Late st Contact Info) Description 04/11/2025 8:00 AM EDT Office Visit [place] [facility] [address] [place] [address] Jaimee Espitia MD 2 [place] [address] documented as of this encounter Procedures Procedure Name Priority Date/Time Associated Diagnosis Comments REFERRAL TO NUTRITION Routine 10/23/2019 Obesity (BMI 30.0-34.9) documented in this encounter Results * REFERRAL TO NUTRITION (10/23/2019) Rufina GUALLPA REFERRALS Final Result * (ABNORMAL) HEMOGLOBIN A1C (10/06/2019 3:00 PM EST) HEMOGLOBIN A1C 5.8(H) <5.7 % 10/06/2019 8:40 PM EST [facility] DEPARTMENT OF PATHOLOGY AND LAB MEDICINE Comment: Reference Range changed May 24, 2019 Non-Diabetic Reference Range ??<5.7% Pre-Diabetic Reference Range ?? 5.7% - 6.4% Diabetic Reference Range ?>6.4% The [place] [employer] recommends that the goal of therapy should be a hemoglobin A1C of < 7.0% and that physicians should reevaluate the treatment regimen in patients with hemoglobin A1C values consistently > 8.0%. ESTIMATED AVERAGE GLUCOSE 120 mg/dL 10/06/2019 8:40 PM EST [facility] DEPARTMENT OF PATHOLOGY AND [...] the 95% confidence interval as reported in: Ramoen CHRISTOPHER et al, Diabetes Care, 2008, 31(8;1476 Blood (Blood, Venous) Venipuncture / Unknown 10/06/2019 3:00 PM EST 10/06/2019 3:00 PM EST us Rufina Major Md [facility] GENERAL LAB Final Result Performing Organization Address City/State/[facility] Co de Phone Number [facility] DEPARTMENT OF PATHOLOGY AND LAB MEDICINE [address] [place] [address] * TSH W/REFLEX (10/06/2019 3:00 PM EST) TSH 2.28 0.28 - 4.10 mlU/L 10/06/2019 8:29 PM EST [facility] DEPARTMENT OF PATHOLOGY AND LAB MEDICINE Blood (Blood, Venous) Venipuncture / Unknown 10/06/2019 3:00 PM EST 10/06/2019 3:00 PM EST us Rufina Sims GENERAL LAB Final Result [facility] DEPARTMENT OF PATHOLOGY AND LAB MEDICINE [address] [place] [address] documented in this encounter Visit Diagnoses Diagnosis Encounter for annual general medical examination without abnormal findings in adult- Primary Hyperlipidemia LDL goal <130 Other and unspecified hyperlipidemia Family history of thyroid disease in sister Family history of diabetes mellitus (DM) Family history of diabetes mellitus Obesity (BMI 30.0-34.9) Obesity, unspecified documented in this encounter Care Teams Figurine Maker Relationship Specialty Start Date End Date Rufina Sims MD [address] [place] [address] PCP - General Internal Medicine 02/02/18 09/22/22 Rufina Sims MD [address] [place] [address] PCP - Payer 06/16/18 02/05/22 documented as of this encounter
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
--- OUTSIDE RECORDS SUMMARY | 2024-09-23 19:04 | XMS_ITS | Encounter Summary ---
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 No / Unsure 11/27/2020 8:45 AM EDT documented as of this encounter Miscellaneous Notes * Telephone Encounter - Harini Walker - 07/25/2020 2:47 PM EST Jonathan has dental apt next week for a cleaning and fillings and crown he is calling to see if he has to be pre-medicated He had knee replacements Both in February. Can he get a call back. RX Amoxicillin [id number] [place], [place] - [address] [facility] [address] [facility] [address] documented in this encounter Plan of Treatment Upcoming Encounters Date Type Department Care Team (Late st Contact Info) Description 04/11/2025 8:00 AM EDT Office Visit [facility] 2 [place] [phone] Jaimee Espitia MD 2 [place] [phone] documented as of this encounter Visit Diagnoses Not on filedocumented in this encounter Care Teams Marine Pipefitter Relationship Specialty Start Date End Date Rufina Sims MD 2 [place] [phone] PCP - General Internal Medicine 02/02/18 09/22/22 Rufina Sims MD 2 [place] [address] PCP - Payer 06/16/18 02/05/22 documented as of this encounter
--- OUTSIDE RECORDS SUMMARY | 2024-09-23 19:04 | XMS_ITS | Encounter Summary ---
Author Organization [facility] Address [address] 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 Not on file documented as of this encounter Plan of Treatment Upcoming Encounters Date Type Department Care Team (Late Contact Info) Description 04/11/2025 8:00 AM EDT Office Visit [facility] 2 [place] [address] Jaimee Espitia MD 2 [place] [phone] documented as of this encounter Visit Diagnoses Not on filedocumented in this encounter Care Teams Guncotton Packer Relationship Specialty Start Date End Date Rufina Sims MD 2 [place] [phone] PCP - General Internal Medicine 02/02/18 09/22/22 Rufina Sims MD 2 [place] [phone] PCP - Payer 06/16/18 02/05/22 documented as of this encounter
--- OUTSIDE RECORDS SUMMARY | 2024-09-23 19:04 | XMS_ITS | Encounter Summary ---
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 on file Not on file documented as of this encounter Plan of Treatment Upcoming Encounters Date Type Department Care Team (Late st Contact Info) Description 04/11/2025 8:00 AM EDT Office Visit [facility] [address] [place] [phone] Jaimee Espitia MD 2 [place] [address] documented as of this encounter Visit Diagnoses Not on filedocumented in this encounter Care Teams Rn Acute Care Relationship Specialty Start Date End Date Brenda Bruner [facility] [address] [place] [address] PCP - General Internal Medicine 10/14/15 02/01/18 Brenda Bruner [facility] [address] [place] [address] PCP - Payer 10/28/15 06/15/18 documented as of this encounter
--- OUTSIDE RECORDS SUMMARY | 2024-09-23 19:04 | XMS_ITS | Encounter Summary ---
Author Organization [facility] Address [address] [facility] [address] [place] [address] Care Team Providers Care Commander Internal Affairs Name Role Phone Brenda Bruner Primary Care Provider [phone] Brenda Bruner Unavailable [phone] Encounter Details Date Type Department Care Team (Late st Contact Info) Description 12/16/2017 Email Encounter [place] 2 [place] [address] Zach Wesley MD 2 [place] [address] RE:How are you ? 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 Emilio, Maliha documented in this encounter Plan of Treatment Upcoming Encounters Date Type Department Care Team (Late st Contact Info) Description 04/11/2025 8:00 AM EDT Office Visit [facility] 2 [place] [phone] Jaimee Espitia MD 2 [place] [address] documented as of this encounter Visit Diagnoses Not on filedocumented in this encounter Care Teams Commander Internal Affairs Relationship Specialty Start Date End Date Brenda Bruner [facility] [address] [place] [address] PCP - General Internal Medicine 10/14/15 02/01/18 Brenda Bruner [facility] [address] [place] [address] PCP - Payer 10/28/15 06/15/18 documented as of this encounter
--- OUTSIDE RECORDS SUMMARY | 2024-09-23 19:04 | XMS_ITS | Encounter Summary ---
Author Organization [facility] Address [address] [facility] [address] [place] [address] Care Team Providers Care Maintenance Journeyman Name Role Phone Rufina Sims Md Primary Care Provider [phone] Rufina Sims Md Unavailable [phone] Encounter Details Date Type Department Care Team (Late st Contact Info) Description 11/21/2019 Email Encounter [facility] [address] [place] [phone] Online, [employer] USED BY [employer] 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 Not on file documented as of this encounter Plan of Treatment Upcoming Encounters Date Type Department Care Team (Late st Contact Info) Description 04/11/2025 8:00 AM EDT Office Visit [place] [facility] 2 [place] [address] Jaimee Espitia MD 2 [place] [phone] documented as of this encounter Visit Diagnoses Not on filedocumented in this encounter Care Teams Maintenance Journeyman Relationship Specialty Start Date End Date Rufina Sims MD 2 [place] [phone] PCP - General Internal Medicine 02/02/18 09/22/22 Rufina Sims MD 2 [place] [address] PCP - Payer 06/16/18 02/05/22 documented as of this encounter
--- OUTSIDE RECORDS SUMMARY | 2024-09-23 19:04 | XMS_ITS | Encounter Summary ---
Author Organization [facility] Address [address] [place] [address] Care Team Providers Care Api Developer Name Role Phone Rufina Sims Md Primary Care Provider [phone] Rufina Sims Md Unavailable [phone] Reason for Visit * Reason Comments post surgical complication Encounter Details Date Type Department Care Team (Late st Contact Info) Description 03/08/2020 Telephone [facility] [address] [place] [address] Sudha Amor, RN 0post surgical complication Social History Tobacco Use Types Packs/Day Years [...] Industry Job Start Date Job End Date [employer] Not on file Not on file Not on file COVID-19 Exposure Response Date Recorded In the last month, have you been in contact with someone who was confirmed or suspected to have Coronavirus / COVID-19? No / Unsure 03/08/2020 12:26 PM EDT documented as of this encounter Miscellaneous Notes * Telephone Encounter - Sudha Amor RN - 03/08/2020 12:29 PM EDT Images from the original note were not included. 02/21 total bilateral knee replacement See records in [facility] Note RLE cellulitis just prior to surgery tx with keflex in our office Now with new sx today right knee incision open and draining AEB blood found on sheets this am Concern for infection with surgical wound dehiscence Agrees to OV today Denies fever/chills/covid sx/exposures Surgeon: Sa[facility]l Ledesma at [facility] [phone] Detailed msg left for office pt needs urgent appt, i've sched him today with us in case unable to see surgeon today as IV abx may be indicated until able to see surgeon Review of web portal appears office did speak to pt: Orders Only 03/08/2020 [facility] Department of Orthopaedics Provider: Dixie Brower PA-C (Orthopedic Surgery)?? Progress Notes I called Jonathan [place] [facility] today, in response to the message I received. I have called the phone numbers available and spoken with the patient. The patient is s/p BL TKA 02/22/2020. He called reporting redness and slight drainage at the right knee incision starting this morning. He denies fevers, chills, or increase in pain. He continues to do exercises and ambulate without issue. He has been using Bactroban ointment since this morning and this is reflected in the photo he sent (see below). Mr. Leal I discussed symptoms and management options. I have started him on Keflex 500mg QID and he willmonitor for any worsening symptoms or systemic changes. We discussed when to call the office and when to visit the ED. I have scheduled him an appointment for Wednesday with Dr. Ledesma to further evaluate. 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 He agrees with the aforementioned plan. ?? Requested Prescriptions ?? Pending Prescriptions Disp Refills ??? cephalexin (KEFLEX) 500 MG capsule 56 capsule 0 ? Sig: Take 1 capsule (500 mg total) by mouth 4 (four) times a day for 14 days. ? Dixie Brower PA-C pager #[phone] Department of Orthopedic Surgery [facility]? [facility] ? * Telephone Encounter - Stephanie Morales - 03/08/2020 12:01 PM EDT Patient explains his right knee incision is red (small) area, leaked some some bloody fluid on sheets this AM No incisional pain Just post surg. Knee pain= the usual Took shore this AM and washed with dial soap=states did not scrub Inquired for temp States he has not taken his temp but does not feel that he has one. Surg. Date=February 21=bilateral knee replacement Rehab=[facility] D/c home on March 07, 2020 No appts. available documented in this encounter Plan of Treatment Upcoming Encounters Date Type Department Care Team (Late st Contact Info) Description 04/11/2025 8:00 AM EDT [facility] [address] [place] [phone] Jaimee Espitia MD [address] [place] [phone] documented as of this encounter Visit Diagnoses Not on filedocumented in this encounter Care Teams Api Developer Relationship Specialty Start Date End Date Rufina Sims MD [address] [place] [phone] PCP - General Internal Medicine 02/02/18 09/22/22 Rufina Sims MD [address] [place] [address] PCP - Payer 06/16/18 02/05/22 documented as of this encounter
--- OUTSIDE RECORDS SUMMARY | 2024-09-23 19:04 | XMS_ITS | Encounter Summary ---
Author Organization [facility] Address [address] [place] [address] Care Team Providers Care Pathology Tech Name Role Phone Rufina Sims Md Primary Care Provider [phone] Poc, Not Required Pcp Or Unavailable Unavail able Reason for Visit * Reason Comments Complete Physical Exam Encounter Details Date Type Department Care Team (Latest Contact Info) Description 02/09/2022 3:50 PM EDT Office Visit [facility] [address] [place] [phone] Briana Ramirez NP [address] [place] [address] Routine adult health maintenance (Primary Dx); Hyperlipidemia LDL goal <130; Obesity (BMI 30.0-34.9); Vitamin D deficiency; Prostate cancer screening encounter, options and risks discussed; Primary osteoarthritis involving multiple joints Social History [...] 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 Date of service: 02/09/2022 Patient: Jonathan Boyer : 1965 PCP: Rufina Sims MD HPI: Jonathan Boyer is a 56 yrs. male pt of Rufina Sims MD here for an annual wellness review and review of current medical problems last colonoscopy 03/28/2021 5 yr f/u Procedure Value Date PROSTATIC ANTIGEN 0.8 11/27/2020 Imm: PCV none, Shingrex x 1, COVID 19 x 3 ,Tdap 03/2016, Flu for season utd Labs pended Health Care Proxy: recommended No new c/o Patient Active Problem List Diagnosis Code ??? Obesity (BMI 30.0-34.9) E66.9 ? ? Hyperlipidemia LDL goal <130 E78.5 ??? Primary osteoarthritis involving multiple joints M89.49 ??? Prostate cancer screening encounter, options and risks discussed Z12.5 ??? Family history of thyroid disease in sister Z83.49 ??? Family history of diabetes mellitus (DM) Z83.3 ??? Vitamin D deficiency E55.9 ??? COVID U07.1 Current Outpatient Medications Medication Sig ??? simvastatin 10 mg tablet TAKE 1 TABLET BY MOUTH EVERY DAY ??? naproxen 500 mg tablet ??? MEN'S MULTI-VITAMIN ORAL Take 1 tablet by mouth daily No Known Drug Allergies. Past Medical History: Diagnosis Date ??? History [...] HX ??? 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 Mountain biking on weekends. 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 COVID-19 (PFIZER) Vaccine, 30mcg/0.3mL, 12YRS+, Diluent Reconstituted, IM 11/18/2020, 12/09/2020, 07/21/2021 ??? Influenza Vaccine (Unspecified Formulation) 06/16/2018 ? ? Influenza Vaccine Recomb, Egg Free, Single Dose Syringe, 0.5 mL, >/=18 YRS (FLUBLOK) 05/08/2020 ? ? Influenza Vaccine, Single Dose Syringe, 0.5 mL, >/=6 MOS 07/04/2019, 06/18/2021 ??? TdaP 03/09/2011, 03/23/2016 ??? Zoster Subunit (Shingles) Vaccine (HZ/Brown), Shingrix 06/18/2021, 02/09/2022 Health Maintenance Topic Date Due ??? ZOSTER VACCINE (1 of 2) Never done ??? COVID-19 Vaccine (4 - Booster for Pfizer series) 11/19/2021 ??? PERIODIC HEALTH REVIEW 11/27/2021 ??? * LIPID PROFILE 11/27/2021 ??? PSA SCREENING 11/27/2021 ??? * GLUCOSE OR A1C TEST 11/28/2023 ??? * GLUCOSE OR A1C TEST 11/28/2023 ??? DTAP/TDAP/TD VACCINE (3 - Td or Tdap) 03/23/2026 ??? COLORECTAL SCREENING : COLONOSCOPY 5 YEAR 03/28/2026 ??? HIV SCREENING Completed ??? HEP C SCREENING Completed ??? FLU SEASONAL Completed ??? PNEUMOCOCCAL VACCINE(S) Aged Out ROS negative as below unless noted in HPI above : Consitutional denies f/c, fatigue, unintentional weight loss, or unexpected weight gain HEENT: Denies new hair loss, visual changes, oral lesions, ST, epistaxis, or rhinorrhea CV: Denies CP, palp, orthopnea, LE edema RESP: Denies cough, SOB, hemoptysis GI: denies n/v/d/c, blood in stool or change in caliber of stool : Denies dysuria, hematuria, frequency or new or increased nocturia. No issues with stream, ED. M/S: no muscle pain or joint pain/edema Integumentary:denies rashes, pruritis or new or worrisome lesions Neuro: denies h/a, dizziness, numbness, tingling Psych: Denies new mood changes, insomnia or new memory issues Endocrine: Denies temperature intolerance, new hair loss Heme: Denies easy bruising, bleeding or edema Allergic/immunologic: Denies hives, sneezing Physical Exam: Vitals: 02/09/22 1541 BP: (!) 142/76 Pulse: 74 SpO2: 97% Weight: 234 lb (106.1 kg) Estimated body mass index is 35.53 kg/m?? as calculated from the following: Height as of 11/27/20: 5' 8.05 (1.728 m). Weight as of this encounter: 234 lb (106.1 kg). General AA&O x 3 NAD Skin- no rashes or worrisome lesions Eyes - conjunctiva clear, no d/c lids and lashes normal Ears- canals clear, TMs contreras, no retraction, no bulge, good COL Nares- no d/c Pharynx- MMM no patches , exudate or edema. Uvula is midline Neck- no nodes, FROM, trachea midline, no bruit or JVD, no masses Lungs- no rales, rhonchi or wheezes CV- RRR no murmur Ext- no edema, AROM is full, pedal pulses 2+ ketty Abd - soft NDTR, no HSM or mass, BS+ all 4 Q Lymph- no cervical or supra/infra clavicular nodes noted Neuro- grossly intact, patella reflexes intact Assessment/Plan: Routine adult health maintenance (primary encounter diagnosis) Comment: Routine PE- recommendations for colonoscopy, psa, dental and eye visits as well as immunizations discussed according to age and need.Discussed current controversies regarding PSA screening as a tool for early diagnosis in prostate cancer. Reviewed current AUA guidelines which recommend screening in patients with a greater than 10 year life expectancy, starting at age 55 to 70 in patientswithout risk factors for prostate cancer .Annual or every other year screening is acceptable protocol. Discussed NCCN Guidelines recommending tailoring PSA testing interval based on results. He prefers to do testing this year Plan: f/u 1 yr Hyperlipidemia LDL goal <130 Comment: on simvastatin Plan: check labs and c/w same Obesity (BMI 30.0-34.9) Comment: has been on meds with [facility] until a few months ago Plan: will call for another appt Vitamin D deficiency Comment: takes a multi vitamin, uses OTC vit d in winter Plan: will use D3 OA- knees replaced, not biking as much, lumbar spondylosis. Tried PT Discontinued Medications Disp Refills Start End naproxen 500 mg tablet 03/05/2020 02/09/2022 Reason for Discontinue: Therapy Completed Satisfactorily Patient expressed understanding and agreement with this plan as listed. F/u 1 yrSyasmeen Ramirez NP documented in this encounter Plan of Treatment Upcoming Encounters Date Type Department Care Team (Late st Contact Info) Description 04/11/2025 8:00 AM EDT Office Visit [facility] [address] [place] [phone] Jaimee Espitia MD [address] [place] [phone] documented as of this encounter Visit Diagnoses Diagnosis Routine adult health maintenance- Primary Routine general medical examination at a health care facility Hyperlipidemia LDL goal <130 Other and unspecified hyperlipidemia Obesity (BMI 30.0-34.9) Obesity, unspecified Vitamin D deficiency Unspecified vitamin D deficiency Prostate cancer screening encounter, options and risks discussed Special screening for malignant neoplasm of prostate Primary osteoarthritis involving multiple joints documented in this encounter Discontinued Medications Medication Sig Discontinue Reason Start Date End Da te naproxen 500 mg tablet Therapy Completed Satisfactorily 03/05/20 20 02/09/2022 documented as of this encounter Orders IMMUNIZATIONS/INJECTION Count Last Ordered Date First Ordered Date SHINGRIX, SUBUNIT ZOSTER (SH INGLES) VACCINE (HZ/BROWN) 1 02/09/2022 documented in this encounter Care Teams Pathology Tech Relationship Specialty Start Date End Date Rufina Sims MD [address] [place] [phone] PCP - General Internal Medicine 02/02/18 09/22/22 Poc, Not Required Pcp Or PCP - Payer 02/06/22 documented as of this encounter
--- OUTSIDE RECORDS SUMMARY | 2024-09-23 19:04 | XMS_ITS | Encounter Summary ---
Author Organization [facility] Address [address] [facility] [address] [place] [address] Care Team Providers Care Bowling Teacher Name Role Phone Rufina Sims Md Primary Care Provider Rufina Sims Md Unavailable [phone] Reason for Visit * Reason Comments Possible infection of incision Right kne e Encounter Details Date Type Department Care Team (Late st Contact Info) Description 03/08/2020 3:00 PM EDT [facility] [address] [place] [phone] Delmy Coppola MD [address] [place] [address] Skin infection (Primary Dx) Social History Tobacco Use [...] 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 Unable to assess 03/08/2020 2:49 PM EDT documented as of this encounter Last Filed Vital Signs Vital Sign Reading Time Taken Comments Blood Pressure 112/68 03/08/2020 3:10 PM EDT Pulse 90 03/08/2020 3:10 PM EDT Temperature 37 ??C (98.6 ??F) 03/08/2020 3:10 PM EDT Respiratory Rate - - Oxygen Saturation - - Inhaled Oxygen Concentration - - Weight - - Height - - Body Mass Index - - documented in this encounter Progress Notes * Delmy Coppola MD - 03/08/2020 3:00 PM EDT C/C:skin infection HPI: Jonathan Boyer is a 54 yrs. male with PMH as in EPIC comes with complain of redness over the knee incision. Patient had bilateral knee replacement on February 21, after which she went to [facility] rehab. Patient had fever for few days at the [facility] with no cause of fever found. He did well the last week, involved in physical therapy and was discharged home yesterday. This morning he woke up noticing some redness on the site of the incision He denies any pain, able to do his physical therapy He otherwise denies any fever chills or feeling tired. On exam AAO. NO distress. vitals as above Bilateral knee incisions look great On his right knee there appears to be few centimeter area of redness around the incision There is no obvious discharge There is no tenderness to palpation He has 90 degrees of flexion of his knee His gait is normal without any pain A/P Skin infection: Patient has communicated with his orthopedic surgeons office and has been prescribed Keflex Suggested he should start taking the medicine For any worsening symptoms he should touch base with his Ortho or call us The skin redness was marked with a marker. documented in this encounter Plan of Treatment Upcoming Encounters Date Type Department Care Team (Late st Contact Info) Description 04/11/2025 8:00 AM EDT [facility] [address] [place] [phone] Jaimee Espitia MD [address] [place] [phone] documented as of this encounter Visit Diagnoses Diagnosis Skin infection- Primary Unspecified local infection of skin and subcutaneous tissue documented in this encounter Discontinued Medications Medication Sig Discontinue Reason Start Date End Da te PROAIR HFA 90 mcg/actuation HFA Aerosol Inhaler Inhale 2 puffs every 6 hours as needed for wheezing (ins pref brand) Med List Clean-up 08/25/2019 03/08/2020 documented as of this encounter Historical Medications * This list may reflect changes made after this encounter. omeprazole magnesium (PRILOSEC ORAL) Take by mouth 1 acetaminophen (TYLENOL) 325 mg capsule Take by mouth 1 cephalexin (KEFLEX ORAL)Indications :Prescribed by surgeon today, hasn't started Take by mouth 02 0 tiZANidine 2 mg tablet 03/05/2020 1 naproxen 500 mg tablet 03/05/2020 2 Mupirocin 2 % Ointment APPLY TOPICALLY 2 TIMES A DAY FOR 5 DAYS APPLY TOPICALLY INSIDE EACH NOSTRIL TWICE DAILY FOR 5 DAYS. 02/21/2020 1 gabapentin 100 mg capsule 03/05/2020 1 Cholecalciferol, Vitamin D3, 50 mcg (2,000 unit) capsule TAKE 3 CAPSULES (6,000 UNITS TOTAL) BY MOUTH DAILY. 02/15/2020 1 added in this encounter Care Teams Bowling Teacher Relationship Specialty Start Date End Date Rufina Sims MD [address] [place] [phone] PCP - General Internal Medicine 02/02/18 09/22/22 Rufina Sims MD [address] [place] [phone] PCP - Payer 06/16/18 02/05/22 documented as of this encounter
--- OUTSIDE RECORDS SUMMARY | 2024-09-23 19:04 | XMS_ITS | Encounter Summary ---
Author Organization [facility] Address [address] [facility] [address] [place] [address] Care Team Providers Care Molten Iron Pourer Name Role Phone Rufina Sims Md Primary Care Provider [phone] Rufina Sims Md Unavailable [phone] Reason for Visit * Specialty (Non Urgent - w/in 3 Months) - Closed Specialty Diagnoses / Procedures Referred By Contac t Referred To Contact Nutrition Diagnoses Obesity (BMI 30.0-34.9) Rufina Sims MD [address] [place] [address] Phone: tel: fax: [address] [address] Phone: tel: Referral ID Status Reason Start Date Expiration Date Visits Re quested Visits Authorized [id number] Closed 10/06/2019 10/06/2020 3 3 Encounter Details Date Type Department Care Team (Late st Contact Info) Description 10/23/2019 1:10 PM EDT Office Visit [facility] [address] [place] [phone] [place] [phone] Obesity (BMI 30.0-34.9) (Primary Dx); Hyperlipidemia LDL goal <130 Social History Tobacco Use Types Packs/Day Years [...] 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 Plan breakfast and lunch w/ protein and something with fiber in each one to feel more full all day 2. See if you can choose salad bar or sweetgreen 3-4x/week and save treat choices for Wednesday ? 3. Try [employer] maia for tracking 4. Start making small changes in the right direction, don't think about the whole picture B: whole grain slovak muffin w/ egg or pb, or the overnight oats idea L: Patient Education documented in this encounter Progress Notes * [address] - 10/23/2019 1:10 PM EDT October 23, 2019 RUFINA Lira MD Thank you for referring Jonathan Boyer to the Nutrition Department. WEIGHT HISTORY: Wt Readings from Last 5 Encounters: 10/06/19 : 229 lb (103.9 kg) 08/25/18 : 225 lb (102.1 kg) 06/16/18 : 228 lb (103.4 kg) 02/17/17 : 221 lb 9.6 oz (100.5 kg) 12/12/15 : 234 lb (106.1 kg) BMI: Estimated body mass index is 34.77 kg/m?? as calculated from the following: Height as of 10/06/19: 5' 8.05 (1.728 m). Weight as of 10/06/19: 229 lb (103.9 kg). 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 previously [employer]: family history of diabetes Planning bilateral knee replacement December 13 FACTORS THAT AFFECT WEIGHT: has lengthy commute Mentions poor sleep Procedure Value Date HEMOGLOBIN A1C 5.8 (H) 10/06/2019 HEMOGLOBIN A1C 5.7 08/25/2018 HEMOGLOBIN A1C 5.7 02/17/2017 Procedure Value Date CHOLESTEROL 214 (H) 10/06/2019 HDL 51 10/06/2019 LDL 101 10/06/2019 TRIGLYCERIDES 310 (H) 10/06/2019 24 hour recall: B: drinks seltzer on commute Gets to work - muffin or breakfast sandwich Was previously keeping oatmeal at desk L: often skips , or grazes on snacks like giant cookie D: grabbing takeout more often Snacking: cookies etc if they are in the house Beverages: Used to drink a lot of diet coke Got a sodastream - drinking a lot of sparkling water sweets are a big problem Grew up meat and potatoes [facility] diet Didn't like many vegetables, learning to like them Supplements: not discussed Alcohol: beer - socially , would have 2. Maybe 5 per week Physical activity: drives part way and then bike commutes [place] to [place] Also likes swimming but hard to schedule Nutritional diagnosis: Excessive energy intake related to large portion sizes, sweets, snacking as evidenced by nutrition history Readiness for change: Preparation NUTRITION INTERVENTION: Education and counseling Nutrition prescription: Reduced calorie meal plan with increased physical activity 1800kcal/day for weight loss, 2300 maintenance Nutrition Education: patient instructed on: Calories in various foods weight loss guidelines & estimated needs Discussed basics of carbohydrate guidelines for elevated A1c Reviewed heart healthy eating Portion control Self-monitoring (food and exercise log) Behavior change techniques Recommended resources The following education materials were used: A guideline of a dinner plate was reviewed and given to the patient to help visualize portion sizes, emphasizing division of plate's 3 sections: 1/4 of plate for protein, 1/4 for starch and 1/2 of plate filled with vegetables. Reviewed general diet guidelines for diabetes. These include: Eating regularly scheduled meals, portion control of carbohydrates, which foods are considered carbohydrates, goals for carbohydrate intake, choosing foods high in fiber and importance of pairing lean sources of protein with carbohydrates. In addition we reviewed incorporating healthy fats and avoiding any beverages with calories except low fat milk. A copy of these was provided to the patient. Menu planning guidelines for a heart healthy diet were provided and reviewed. Foods to be chosen for this meal plan in the appropriate portions were outlined. In addition, foods to be avoided were reviewed. Patient's nutrition and lifestyle goal(s) discussed at this visit: Goals: 1. Plan breakfast and lunch w/ protein and something with fiber in each one to feel more full all day 2. See if you can choose salad bar or sweetgreen 3-4x/week and save treat choices for Wednesday ? 3. Try [employer] maia for tracking 4. Start making small changes in the right direction, don't think about the whole picture B: whole grain slovak muffin w/ egg or pb, or the overnight oats idea L: Potential obstacles to behavior change: long commute Also expresses some ambivalence about making diet changes, focused on his worries about his upcoming surgery, and has failed to decrease sweets in the past despite setting similar goals. Discussed behavior change strategies for a different outcome this time Patient verbalized good understanding of MNT provided today. PLAN FOR MONITORING AND EVALUATION Goals of medical nutrition therapy: decrease BMI make healthier food choices incorporate regular physical activity into lifestyle Future plans for care: review food diaries FOLLOW UP: 6 weeks This 40 minute visit was devoted to medical nutrition therapy. documented in this encounter Plan of Treatment Upcoming Encounters Date Type Department Care Team (Late st Contact Info) Description 04/11/2025 8:00 AM EDT Office Visit [facility] [address] [place] [phone] Jaimee Espitia MD 2 [place] [address] documented as of this encounter Procedures Procedure Name Priority Date/Time Associated Diagnosis Comments MEDICAL NUTRITION THERAPY INDIV INIT EACH 15 MIN Routine 10/23/2019 2:19 PM EDT Obesity (BMI 30.0-34.9) Hyperlipidemia LDL goal <130 REFERRAL TO NUTRITION Routine 10/23/2019 Obesity (BMI 30.0-34.9) documented in this encounter Visit Diagnoses Diagnosis Obesity (BMI 30.0-34.9)- Primary Obesity, unspecified Hyperlipidemia LDL goal <130 Other and unspecified hyperlipidemia documented in this encounter Orders PROCEDURES Count Last Ordered Date First Orde red Date MEDICAL NUTRITION THERAPY IN DIV INIT EACH 15 MIN 1 10/23/2019 documented in this encounter Care Teams Molten Iron Pourer Relationship Specialty Start Date End Date Rufina Sims MD [address] [place] [address] PCP - General Internal Medicine 02/02/18 09/22/22 Rufina Sims MD [address] [place] [address] PCP - Payer 06/16/18 02/05/22 documented as of this encounter
--- OUTSIDE RECORDS SUMMARY | 2024-09-23 19:04 | XMS_ITS | Encounter Summary ---
Author Organization [facility] Address [address] [facility] [address] [place] [address] Care Team Providers Care Wholesale And Retail Merchant Name Role Phone Rufina Sims Md Primary Care Provider [phone] Rufina Sims Md Unavailable [phone] Encounter Details Date Type Department Care Team (Late st Contact Info) Description 11/20/2019 Email Encounter [facility] [address] [place] [phone] Online, Handprint USED BY Thermodynamic Process Control TO CREATE USER MESSAGE ENCOUNTERS BY NON-PROVIDERS Important information regarding your nutrition appointment Social History Tobacco Use Types Packs/Day [...] 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 Not on file Not on file documented as of this encounter Plan of Treatment Upcoming Encounters Date Type Department Care Team (Late Contact Info) Description 04/11/2025 8:00 AM EDT Office Visit [facility] 2 [place] [address] Jaimee Espitia MD 2 [place] [phone] documented as of this encounter Visit Diagnoses Not on filedocumented in this encounter Care Teams Wholesale And Retail Merchant Relationship Specialty Start Date End Date Rufina Sims MD 2 [place] [address] PCP - General Internal Medicine 02/02/18 09/22/22 Rufina Sims MD [address] [place] [address] PCP - Payer 06/16/18 02/05/22 documented as of this encounter
--- OUTSIDE RECORDS SUMMARY | 2024-09-23 19:04 | XMS_ITS | Encounter Summary ---
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 NKDA. CC: bitten by ground squirrel on left index finger Sx started: around 1:30 pm today Sx include: small bite on left finger, had gloves on, but squirrel bit through the gloves, was trying to free squirrel from a trap, mild bleeding (a few drops) Denies: fever, recent antibiotics, drainage Has tried: washed with soap and water, peroxide and alcohol Advised: Patient recommended to be seen at for antibiotics to cover for potential skin infectionfrom the bite. He states there is one near his house, and he will go there now. Patient advised to call us back for an appt, if he is unable to be seen there tonight. He voiced understanding and was in agreement with the POC. * Telephone Encounter - Farheen Cox Pa-C - 01/07/2019 3:35 PM EDT ----- Message from Dannielle Valdez sent at 01/07/2019 1:36 PM EDT ----- Regarding: bitten by squirrel, ? if he should be seen Contact: x documented in this encounter Plan of Treatment Upcoming Encounters Date Type Department Care Team (Late st Contact Info) Description 04/11/2025 8:00 AM EDT Office Visit [facility] [address] [place] [address] Jaimee Espitia MD 2 [place] [address] documented as of this encounter Visit Diagnoses Diagnosis Wound due to squirrel bite- Primary documented in this encounter Care Teams Furniture Detailer Relationship Specialty Start Date End Date Rufina Sims MD 2 [place] [address] PCP - General Internal Medicine 02/02/18 09/22/22 Rufina Sims MD [address] [place] [phone] PCP - Payer 06/16/18 02/05/22 documented as of this encounter
--- OUTSIDE RECORDS SUMMARY | 2024-09-23 19:04 | XMS_ITS | Encounter Summary ---
Author Organization [facility] Address [address] [facility] [address] [place] [address] Care Team Providers Care Experience Planning Strategist Name Role Phone Rufina Sims Md Primary Care Provider [phone] Rufina Sims Md Unavailable [phone] Reason for Visit * Specialty (Priority - w/in a Month ) - Closed Specialty Diagnoses / Procedures Referred By Valerie valdez Referred To Contact Orthopedics Diagnoses Acute pain of right knee Primary osteoarthritis involving multiple joints Shyann Juares, MIGUELITO [address] [place] [address] Phone: tel: fax: [address] [address] Phone: tel: Referral ID Status Reason Start Date Expiration Date Visits Re quested Visits Authorized [id number] Closed 04/16/2019 04/16/2020 3 3 Encounter Details Date Type Department Care Team (Late st Contact Info) Description 05/08/2019 9:00 AM EDT Office Visit [facility] [address] [place] [phone] Ryan Heart MD [address] [place] [id number] Arthritis of left knee (Primary Dx); Arthritis of right knee Social History Tobacco Use [...] 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 Boyer is a 53 yrs. old male who presents with a complaint of left and right knee pain. The pain is located in the medial knees, is described as an ache, and is moderate-severe in severity. The knee pain is intermittent and has been present for many years. The symptoms have been progressively worsening. The pain is aggravated with walking. The pain is relieved with activity modification and cycling but not fully. The patient has been treated with anti-inflammatories, exercise, activity modification, and intra-articular steroid injection. The pain affects the patient's quality of life and activities of daily living. He is here today to discuss left and right knee replacement surgery. Patient Active Problem List Diagnosis Code ??? Obesity (BMI 30.0-34.9) E66.9 ? ? Hyperlipidemia LDL goal <130 E78.5 ??? Primary osteoarthritis involving multiple joints M15.0 ??? Prostate cancer screening encounter, options and risks discussed Z12.5 ??? Family history of thyroid disease in sister Z83.49 ??? Family history of diabetes mellitus (DM) Z83.3 Past Surgical History: Procedure Laterality Date ??? PAST SURGICAL HISTORY OF: 2007 Ulnar Nerve Entrapment ??? PAST SURGICAL HISTORY OF: 2005 Arthroscopic Surgery for Meniscus ??? PAST SURGICAL HISTORY OF: 1990 Anal Fistula/Abscess ??? PAST SURGICAL HISTORY OF: 1980s R Shoulder Current Outpatient Prescriptions: simvastatin 10 mg tablet Take 1 tablet by mouth daily MEN'S MULTI-VITAMIN ORAL Take 1 tablet by mouth daily [id number] 149-hyal (GLUCOS CHOND CPLX ADVANCED ORAL) Take 1 tablet by mouth twice daily No Known Drug Allergies. Family History Problem Relation Age of Onset [...] Alcohol Use: Yes Comment: 3-4 per week Review of Symptoms: Musculoskeletal: As above Cardiovascular: No chest pain Respiratory: No shortness of breath : No polyuria Neurological: No numbness or tingling Physical Exam: Estimated body mass index is 33.71 kg/(m^2) as calculated from the following: Height as of 08/25/18: 5' 8.5 (1.74 m). Weight as of 08/25/18: 225 lb (102.1 kg). General: Alert and oriented x 3, Well groomed, Well nourished Head and Neck: Atraumatic, Full range of motion, Normal tone Vascular: Dorsalis pedis pulse 2+, Posterior tibial pulse 2+ Gait: Ambulates with an antalgic gait Spine: No swelling, FROM, No tenderness to palpation, Normal tone LLE: No ecchymosis, no erythema, no edema, trace effusion, +varus deformity, +medial joint line tenderness to palpation, strength knee extension 5/5, ROM 0- 110 degrees, stable to varus/valgus stress,no AP instability noted, + patellar crepitus and + pain with patellar grind. RLE: No ecchymosis, no swelling, no erythema, +varus deformity, +medial joint line tenderness to palpation, strength 5/5 knee extension, ROM 0-120 degrees, stable to varus/valgus stress, no AP instability noted, + patellar crepitus and + pain with patellar grind. Neurologic: Able to fire EHL/FHL/TA/GS/PER. Sensation present to light touch s/s/t/dp/sp. Imaging: Weightbearing AP and PA views, lateral, and sunrise plain films of the left and right knee were reviewed today by me in the office which demonstrate severe knee joint space narrowing, osteophyte formation and subchondral sclerosis A/P: Mr. Boyer is a 53 yrs. old male who presents with left and right knee pain. The patient has moderate to advanced djd of the left and right knee. I had a lengthy discussion with the patient regarding non-operative and operative treatment of this condition, including anti-inflammatories, physicaltherapy, activity modification, weight loss, intra-articular steroid injection, and total knee replacement. The patient has failed non-operative treatment. The knee pain has limited the patient???s ability to perform activities of daily living and leisure activities. After discussing the risks, benefits, and alternatives, the patient elected to proceed with a left and right total knee replacement. The risks include but are not limited to infection, decreased function, pain, implant failure, loosening, osteolysis, fracture, instability, neurovascular injury, DVT, PE, medical and anesthesia complications. The patient has agreed to surgery and all of their questions have been answered. documented in this encounter Plan of Treatment Upcoming Encounters Date Type Department Care Team (Late st Contact Info) Description 04/11/2025 8:00 AM EDT Office Visit [facility] 2 [place] [phone] Jaimee Espitia MD 2 [place] [phone] documented as of this encounter Procedures Procedure Name Priority Date/Time Associated Diagnosis Comments REFERRAL TO ORTHOPEDICS Routine 05/08/2019 Acute pain of right knee Primary osteoarthritis involving multiple joints documented in this encounter Results * REFERRAL TO ORTHOPEDICS (05/08/2019) us Shyann GUALLPA REFERRALS Final Resu lt documented in this encounter Visit Diagnoses Diagnosis Arthritis of left knee- Primary Unspecified arthropathy, lower leg Arthritis of right knee Unspecified arthropathy, lower leg documented in this encounter Care Teams Experience Planning Strategist Relationship Specialty Start Date End Date Rufina Sims MD [address] [place] [phone] PCP - General Internal Medicine 02/02/18 09/22/22 Rufina Sims MD [address] [place] [address], [place] [phone] PCP - Payer 06/16/18 02/05/22 documented as of this encounter
--- OUTSIDE RECORDS SUMMARY | 2024-09-23 19:04 | XMS_ITS | Encounter Summary ---
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
--- OUTSIDE RECORDS SUMMARY | 2024-09-23 19:04 | XMS_ITS | Encounter Summary ---
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 * Telephone Encounter - PaulieJosie - 08/24/2019 3:47 PM EST Patients insurance will only cover brand name albuterol inhaler please resend it [id number] - [place], [place] - [address] [facility] [id number] documented in this encounter Plan of Treatment Upcoming Encounters Date Type Department Care Team (Late st Contact Info) Description 04/11/2025 8:00 AM EDT Office Visit [facility] 2 [place] [phone] Jaimee Espitia MD 2 [place] [phone] documented as of this encounter Visit Diagnoses Not on filedocumented in this encounter Care Teams Swimming Pool Salesperson Relationship Specialty Start Date End Date Rufina Sims MD 2 [place] [phone] PCP - General Internal Medicine 02/02/18 09/22/22 Rufina Sims MD 2 [place] [address] PCP - Payer 06/16/18 02/05/22 documented as of this encounter
--- OUTSIDE RECORDS SUMMARY | 2024-09-23 19:04 | XMS_ITS | Encounter Summary ---
Author Organization [facility] Address [address] 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 Not on file Not on file documented as of this encounter Last Filed Vital Signs Vital Sign Reading Time Taken Comments Blood Pressure 112/68 08/24/2019 1:56 PM EST Pulse 82 08/24/2019 1:56 PM EST Temperature 36.9 ??C (98.4 ??F) 08/24/2019 1:56 PM ES T Respiratory Rate - - Oxygen Saturation 98% 08/24/2019 1:56 PM EST Inhaled Oxygen Concentration - - Weight - - Height - - Body Mass Index - - documented in this encounter Ordered Prescriptions Prescription Sig Dispense Quantity Refills Last Filled Start Date End Date albuterol 90 mcg/actuation HFA Aerosol Inhaler Inhale 2 puffs as instructed every 4-6 hours as needed; rinse mouthpiece at least weekly. (Dispense generic, Proair, or Ventolin per payor) 1 Inhaler 3 08/24/2019 0 guaifenesin-codein e (GUAIFENESIN AC) 10-100 mg/5 mL Liquid Take 5-10 mL by mouth as instructed every 4-6 hours as needed for cough 120 mL 08/24/2019 0 documented in this encounter Progress Notes * Johnna De La Garza Pa-C - 08/24/2019 1:45 PM EST HPI: Jonathan Boyer is a 54 yrs. male who complains of 10 day history of sore throat, dry cough and fatigue, without associated shortness of breath, fever, chills, tinnitus, dizziness and sinus pain. Pt wastaking Mucinex ROS: he denies fever, chills, sweats, rigors, rash, hoarseness, cough, wheezing, abdominal pain, nausea or vomiting . Current Outpatient Medications Medication Sig ??? simvastatin 10 mg tablet Take 1 tablet by mouth daily ??? MEN'S MULTI-VITAMIN ORAL Take 1 tablet by mouth daily ??? ehqafvjn-zsqvzjc-xysu 149-hyal (GLUCOS CHOND CPLX ADVANCED ORAL) Take 1 tablet by mouth twice daily No Known Drug Allergies. Patient Active Problem List Diagnosis Code ??? Obesity (BMI 30.0-34.9) E66.9 ? ? Hyperlipidemia LDL goal <130 E78.5 ??? Primary osteoarthritis involving multiple joints M15.0 ??? Prostate cancer screening encounter, options and risks discussed Z12.5 ??? Family history of thyroid disease in sister Z83.49 ??? Family history of diabetes mellitus (DM) Z83.3 Social History Occupational History ??? 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 Smoking status: Never Smoker ??? Smokeless tobacco: Never Used Substance and Sexual Activity ??? Alcohol use: Yes Comment: 3-4 per week ??? Drug use: No Comment: never IVDU ??? Sexual activity: Yes Partners: Female Comment: monogamous with Other Topics Concern ??? Service No ??? Blood Transfusions No ??? Caffeine Concern No ??? Weight Concern No ??? Exercise Yes Comment: bicycle daily ??? Bike Helmet Yes ??? 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 Mountain biking on weekends. 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 BP 112/68 Pulse 82 Temp 98.4 ??F (36.9 ??C) (Oral) SpO2 98% Skin: normal, no cyanosis. HEENT: -Eyes-normal appearance, PERRL, EOMI, conjunctiva normal -Ears-normal external exam, canals and TMs -Nose-normal external exam, nasal mucous membranes -Sinuses-nontender -Throat-clearNeck: Supple; thyroid-normal. Nodes: no cervical adenopathy; no supraclavicular adenopathy. Chest: clear to auscultation. Chest Xray was ordered and results were negative for any acute abnormalities per my review ASSESSMENT: Bronchitis PLAN: -Routine symptomatic measures discussed. -Claritin. -Robitussin AC. -Albuterol MDI. -Antibiotics not indicated at this time. -Return visit if symptoms persist or progress in any way despite above plan. If pt would not feel better by Wednesday we will Rx Zpak documented in this encounter Plan of Treatment Upcoming Encounters Date Type Department Care Team (Late st Contact Info) Description 04/11/2025 8:00 AM EDT Office Visit [facility] 2 [place] [phone] Jaimee Espitia MD 2 [facility] [phone] documented as of this encounter Procedures Procedure Name Priority Date/Time Associated Diagnosis Comments CHEST XRAY PA & LATERAL STAT 08/24/2019 2:09 PM EST Cough documented in this encounter Results * CHEST XRAY PA & LATERAL (08/24/2019 2:09 PM EST) Anatomical Region Laterality Modality Lung, Chest Computed Radiogr aphy 08/24/2019 2:10 PM EST Impressions 08/24/2019 2:11 PM EST No acute abnormality. Narrative 08/24/2019 2:11 PM EST INTERPRETED BY: ??Torrey Michel M.D. STUDY: ??CHEST XRAY PA and LATERAL ?? DATE OF EXAM: ??08/24/2019 2:09 PM HISTORY: ??Cough TECHNIQUE: ??PA and lateral views of the chest were obtained. NUMBER OF IMAGES SUBMITTED: ??2 COMPARISON: ??None FINDINGS: Heart and mediastinum: ??Cardiomediastinal silhouette and pulmonary vasculature are normal. Pulmonary findings: The lungs are normally expanded. ??No acute infiltrate, effusion, or pneumothorax. Additional findings: ??Azygous lobe. DJD thoracic spine. Procedure Note Torrey Michel MD - 08/24/2019 INTERPRETED BY: Torrey Michel M.D. STUDY: CHEST XRAY PA and LATERAL DATE OF EXAM: 08/24/2019 2:09 PM HISTORY: Cough TECHNIQUE: PA and lateral views of the chest were obtained. NUMBER OF IMAGES SUBMITTED: 2 COMPARISON: None FINDINGS: Heart and mediastinum: Cardiomediastinal silhouette and pulmonaryvasculature are normal. Pulmonary findings: The lungs are normally expanded. No acuteinfiltrate, effusion, or pneumothorax. Additional findings: Azygous lobe. DJD thoracic spine. IMPRESSION: No acute abnormality. Johnnakt De La Garza [facility] X-RAY Final Result documented in this encounter Visit Diagnoses Diagnosis Cough- Primary documented in this encounter Care Teams Clinical Lab Clerk Relationship Specialty Start Date End Date Rufina Sims MD 2 [place] [phone] PCP - General Internal Medicine 02/02/18 09/22/22 Rufina Sims MD 2 [place] [address] PCP - Payer 06/16/18 02/05/22 documented as of this encounter
--- OUTSIDE RECORDS SUMMARY | 2024-09-23 19:04 | XMS_ITS | Encounter Summary ---
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 No / Unsure 02/06/2020 9:03 AM EDT documented as of this encounter Miscellaneous Notes * Telephone Encounter - Bob Brooks RN - 02/06/2020 9:01 AM EDT Reason for Disposition ? ? [1] Red area or streak [2] large (> 2 in. or 5 cm) Answer Assessment - Initial Assessment Questions 1. ONSET: When did the swelling start? (e.g., minutes, hours, days) X 5 days 2. LOCATION: What part of the leg is swollen? Are both legs swollen or just one leg? (R) lower extrem ankle 3. SEVERITY: How bad is the swelling? (e.g., localized; mild, moderate, severe) - Localized - small area of swelling localized to one leg - MILD pedal edema - swelling limited to foot and ankle, pitting edema < 1/4 inch (6 mm) deep, rest and elevation eliminate most or all swelling - MODERATE edema - swelling of lower leg to knee, pitting edema > 1/4 inch (6 mm) deep, rest andelevation only partially reduce swelling - SEVERE edema - swelling extends above knee, facial or hand swelling present Mild swelling 4. REDNESS: Does the swelling look red or infected? red 5. PAIN: Is the swelling painful to touch? If so, ask: How painful is it? (Scale 1-10; mild, moderate or severe) Mild 2-3/10 6. FEVER: Do you have a fever? If so, ask: What is it, how was it measured, and when did it start? no 7. CAUSE: What do you think is causing the leg swelling? ? cellulitis 8. MEDICAL HISTORY: Do you have a history of heart failure, kidney disease, liver failure, or cancer? no 9. RECURRENT SYMPTOM: Have you had leg swelling before? If so, ask: When was the last time? What happened that time? no 10. OTHER SYMPTOMS: Do you have any other symptoms? (e.g., chest pain, difficulty breathing) none 11. : Is there any chance you are ? When was your last menstrual period? no Protocols used: LEG SWELLING AND EDEMA-A-AH * Telephone Encounter - Bob Brooks RN - 02/06/2020 8:55 AM EDT Pt called, pt c/o (R) ankle warm to the touch, red, tender and swollen 1+ over the past 5 days or so Pain with ambulation started a week ago Skin is intact, had mosquito bits that he itched with minor bleeding x 2 weeks, had poison last week and he may have had a little irritation as well last week No scabs or open ernesto now. 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 Appt sched with Dr. Wesley for today at 11:00am Pt advised tcb sooner prn. * Telephone Encounter - Deonna Iniguez - 02/06/2020 8:31 AM EDT Patient has ankle swelling, red and warm to the touch. Did not remember doing anything to it. Did have poison binta a few weeks ago. Please call. Give him 15 min to jump in the shower before calling. documented in this encounter Plan of Treatment Upcoming Encounters Date Type Department Care Team (Late st Contact Info) Description 04/11/2025 8:00 AM EDT Office Visit [facility] 2 [place] [phone] Jaimee Espitia MD 2 [place] [phone] documented as of this encounter Visit Diagnoses Diagnosis Right leg swelling- Primary documented in this encounter Care Teams Moth Proofer Relationship Specialty Start Date End Date Rufina Sims MD [address] [place] [phone] PCP - General Internal Medicine 02/02/18 09/22/22 Rufina Sims MD [address] [place] [phone] PCP - Payer 06/16/18 02/05/22 documented as of this encounter
--- OUTSIDE RECORDS SUMMARY | 2024-09-23 19:04 | XMS_ITS | Encounter Summary ---
Author Organization [facility] Address [address] [facility] [address] [place] [address] Care Team Providers Care Java J2Ee Technical Lead Name Role Phone Rufina Sims Md Primary Care Provider [phone] Rufina Sims Md Unavailable Reason for Visit * Reason Comments Hosp. f/u Encounter Details Date Type Department Care Team (Late st Contact Info) Description 03/08/2020 Telephone [facility] 2 [place] [phone] Rufina Sims MD 0Hosp. 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 No / Unsure 03/08/2020 12:26 PM EDT documented as of this encounter Miscellaneous Notes * Telephone Encounter - Sudha Amor RN - 03/08/2020 1:31 PM EDT Pt is being seen today for surgical complication by covering provider He also has urgent f/u with surgeon Wednesday for this complication as well May not need f/u with pcp as pt will be followed by surgeon Will cc pcp * Telephone Encounter - Stephanie Morales - 03/08/2020 1:11 PM EDT [facility] D/C to [facility]. On February 24, 2020 D/C home without services on March 07, 2020 Tel[facility]. Hosp. F/u appt. On [address] Sims documented in this encounter Plan of Treatment Upcoming Encounters Date Type Department Care Team (Late st Contact Info) Description 04/11/2025 8:00 AM EDT Office Visit [facility] 2 [place] [phone] Jaimee Espitia MD 2 [place] [phone] documented as of this encounter Visit Diagnoses Not on filedocumented in this encounter Care Teams Java J2Ee Technical Lead Relationship Specialty Start Date End Date Rufina Sims MD 2 [place] [phone] PCP - General Internal Medicine 02/02/18 09/22/22 Rufina Sims MD 2 [place] [address] PCP - Payer 06/16/18 02/05/22 documented as of this encounter
--- OUTSIDE RECORDS SUMMARY | 2024-09-23 19:04 | XMS_ITS | Encounter Summary ---
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 Not on file Not on file documented as of this encounter Plan of Treatment Upcoming Encounters Date Type Department Care Team (Late Contact Info) Description 04/11/2025 8:00 AM EDT Office Visit [facility] 2 [place] [phone] Jaimee Espitia MD 2 [place] [phone] documented as of this encounter Visit Diagnoses Not on filedocumented in this encounter Care Teams Compliance Project Manager Relationship Specialty Start Date End Date Rufina Sims MD 2 [place] [phone] PCP - General Internal Medicine 02/02/18 09/22/22 Rufina Sims MD 2 [place] [phone] PCP - Payer 06/16/18 02/05/22 documented as of this encounter
--- OUTSIDE RECORDS SUMMARY | 2024-09-23 19:04 | XMS_ITS | Encounter Summary ---
Author Organization [facility] Address [address] [facility] [address] [place] [address] Care Team Providers Care Safety Deposit Boxes Custodian Name Role Phone Rufina Sims Md Primary Care Provider Rufina Sims Md Unavailable [phone] Reason for Referral * Procedure (Non Urgent - w/in 3 Months) - Closed Specialty Diagnoses / Procedures Referred By Contac t Referred To Contact Gastroenterology Diagnoses Colon cancer screening Rufina Sims MD [address] [place] [address] Phone: tel: fax: [facility] [address] [place] [address] Phone: tel: fax: Referral ID Status Reason Start Date Expiration Date V isits Requested Visits Authorized [id number] Closed Service not locally available 01/23/2021 01/23/2022 12 12 * Specialty (Non Urgent - w/in 3 Months) - Closed Specialty Diagnoses / Procedures Referred By Contac t Referred To Contact Internal Medicine Diagnoses Class 2 obesity due to excess calories without serious comorbidity with body mass index (BMI) of 36.0 to 36.9 in adult Rufina Sims MD [address] [place] [address] Phone: tel: fax: [place] [address] Phone: tel: fax: Referral ID Status Reason Start Date Expiration Date Visits Re quested Visits Authorized [id number] Closed 11/27/2020 11/27/2021 3 3 Scheduling Instructions This referral may allow patient to self-book online. Otherwise, normal referral management procedures will apply. Reason for Visit * Reason Comments Complete Physical Exam Encounter Details Date Type Department Care Team (Late st Contact Info) Description 11/27/2020 8:00 AM EDT Office Visit [place] [facility] 2 [place] [phone] Rufina Sims MD Encounter for annual general medical examination without abnormal findings in adult (Primary Dx); Hyperlipidemia LDL goal <130; Vitamin D deficiency; Class 2 obesity due to excess calories without serious comorbidity with body mass index (BMI) of 36.0 to 36.9 in adult; Prediabetes; Colon cancer screening Social History Tobacco Use Types Packs/Day Years [...] 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 No / Unsure 11/27/2020 8:45 AM EDT documented as of this encounter Last Filed Vital Signs Vital Sign Reading Time Taken Comments Blood Pressure 122/74 11/27/2020 8:06 AM EDT Pulse 70 11/27/2020 8:06 AM EDT Temperature - - Respiratory Rate - - Oxygen Saturation - - Inhaled Oxygen Concentration - - Weight 108.9 kg (240 lb) 11/27/2020 8:06 AM EDT Height 172.8 cm (5' 8.05) 11/27/2020 8:06 AM ED T Body Mass Index 36.44 11/27/2020 8:06 AM EDT documented in this encounter Patient Instructions * Patient Instructions* Rufina Sims MD - 11/27/2020 8:00 AM EDT Lab work today Someone will call you to set up colonoscopy Call [facility] at [phone] General health recommendations: I would like to [...] predisposing conditions (physical inactivity, hypertension, hypercholesterolemia, - [place], , , or ancestry, or first degree [...] exams dependent on the recommendation of your black ash burner operator or bereavement coordinator. Infectious Disease Screening: ??? Chlamydia and gonorrhea: [...] stopping now. I recommend that you use [employer]. I can place a referral, and they will call, or you can directly sign on to [email or web address]. 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 The [place] [employer] Association and [place] College of Sports Medicinedefine moderate intensity exercise [...] numbers for ongoing or emerging risks include [place] Domestic Violence Hotline at 7-079-322-RSXI and [facility] Child [facility] Hotline at 8-356-1-A-CHILD ( ). Immunizations: ?? Keep your immunizations [...] circumstances. Have a safe and healthy year, Rufina Sims MD documented in this encounter Ordered Prescriptions Prescription Sig Dispense Quantity Refills Last Filled Start Date End Date simvastatin 10 mg tabletIndications: Hyperlipidemia LDL goal <130 Take 1 tablet by mouth daily 90 tablet 3 11/27/2020 12/15/2021 documented in this encounter Progress Notes * Rufina Sims MD - 11/27/2020 8:00 AM EDT Jonathan Boyer is a 55 yrs. old male presenting for complete physical exam. HPI: Doing well post b/l knee replacement. Walks 2-5 mi a day wo pain, some stiffness. Is concerned about weight. Has seen centrifugal supervisor already before, knows what to do. He needs help with portion control, satiety. Wt Readings from Last 5 Encounters: 11/27/20 : 240 lb (108.9 kg) 10/06/19 : 229 lb (103.9 kg) 08/25/18 : 225 lb (102.1 kg) 06/16/18 : 228 lb (103.4 kg) 02/17/17 : 221 lb 9.6 oz (100.5 kg) ROS Constitutional, HENT, eyes, resp, CV, GI, endocrine, , MSK, allergy, neurological, hematological and psych negative unless mentioned above. Patient Active Problem List Diagnosis Code ??? Obesity (BMI 30.0-34.9) E66.9 ? ? Hyperlipidemia LDL goal <130 E78.5 ??? Primary osteoarthritis involving multiple joints M89.49 ??? Prostate cancer screening encounter, options and risks discussed Z12.5 ??? Family history of thyroid disease in sister Z83.49 ??? Family history of diabetes mellitus (DM) Z83.3 ??? History of bilateral knee replacement Z96.653 ??? Vitamin D deficiency E55.9 Past Medical History: Diagnosis Date ??? Pneumonia 1994 Hospitalized X 5 days Past Surgical History: Procedure Laterality Date ??? PAST SURGICAL HISTORY OF: 2007 Ulnar Nerve Entrapment ??? PAST SURGICAL HISTORY OF: 2005 Arthroscopic Surgery for Meniscus ??? PAST SURGICAL HISTORY OF: 1990 Anal Fistula/Abscess ??? PAST SURGICAL HISTORY OF: 1980s R Shoulder No Known Drug Allergies. Current Outpatient Medications Medication Sig ??? amoxicillin 500 mg capsule Take 4 capsules by mouth as instructed 1 hour before dental procedure ??? cephalexin 500 mg capsule TAKE 1 CAPSULE (500 MG TOTAL) BY MOUTH 4 (FOUR) TIMES A DAY FOR 14 DAYS. ??? Cholecalciferol, Vitamin D3, 50 mcg (2,000 unit) capsule TAKE 3 CAPSULES (6,000 UNITS TOTAL) BYMOUTH DAILY. ??? gabapentin 100 mg capsule ??? Mupirocin 2 % Ointment APPLY TOPICALLY 2 TIMES A DAY FOR 5 DAYS APPLY TOPICALLY INSIDE EACH NOSTRIL TWICE DAILY FOR 5 DAYS. ??? naproxen 500 mg tablet ??? tiZANidine 2 mg tablet ??? acetaminophen (TYLENOL) 325 mg capsule Take by mouth ??? omeprazole magnesium (PRILOSEC ORAL) Take by mouth ??? simvastatin 10 mg tablet TAKE 1 TABLET BY MOUTH EVERY DAY ??? 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 Mountain biking on weekends. 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 GEN: WNWD NAD INTEG: Anict without rash, xanthoma or ecchymosis HEAD: NCAT EYES: Sclera anicteric. PERRL. EOM intact ENMT: TMs and canals WNL. Gross hearing intact NECK: FROM. No thyromegaly. LYMPH: No mikayla-auricular, cervical, supraclavicular, epitrochlear, axillary, or inguinal lymphadenopathy CARDIAC: RRR. Normal S1S2. No M/R/C/G No JVD. Carotid upstrokes brisk without bruit PULM: CTAB, no wheezing/rales/rubs. No respiratory distress ABD: Soft, non-tender, non-distended. +BS. No organomegaly. BACK: No CVA/Spinal tenderness EXT: No clubbing, cyanosis, edema, 2+ DP and PT pulses b/l : No hernia. RECTAL: Normal with good sphincter tone & no masses or hemorrhoids. Hemoccult neg. Prostate non-boggy, non-tender. NEURO: Mental status: A&O, good insight and judgement; cranial nerves: II-XII intact; sensory: equal bilaterally; motor: 5/5 bilaterally in UE/LE; DTRs: 2+ in all ext; gait normal. A/P: Jonathan Boyer is a 55 yrs. yo M presenting for annual CPE. PMH, FmHx, and Sohx updated. Reviewed allergies and meds. Healthy diet and exercising discussed and encouraged. Routine guidelines for age group discussed. Recommended to return for annual CPE in 1 yr. [facility]. Labs today. CLS order placed documented in this encounter Plan of Treatment Upcoming Encounters Date Type Department Care Team (Late st Contact Info) Description 04/11/2025 8:00 AM EDT Office Visit [place] [facility] 2 [place] [address] Jaimee Espitia MD 2 [place] [phone] Scheduled Referrals Name Type Priority Associated Diagnoses Orde r Schedule REFERRAL TO WEIGHT MANAGEMENT REFERRAL/FUTURE Routine Class 2 obesity due to excess calories without serious comorbidity with body mass index (BMI) of 36.0 to 36.9 in adult Ordered: 11/27/2020 documented as of this encounter Procedures Procedure Name Priority Date/Time Associated Diagnosis Comments REFERRAL FOR COLONOSCOPY Routine 03/28/2021 Colon cancer screening documented in this encounter Results * REFERRAL FOR COLONOSCOPY (03/28/2021) 03/28/2021 us Rufina Sims [facility] Final Res ult * (ABNORMAL) VITAMIN D 25-HYDROXY TOTAL ONLY (11/27/2020 8:49 AM EDT) Pathologist [facility] VITAMIN D,25-OH,TOTAL 25(L) 30 - 100 ng/mL 11/27/2020 12:32 PM EDT [facility] DEPARTMENT OF PATHOLOGY AND LAB MEDICINE Comment: Interpretation ? Deficient ? <20 ?? Insufficient ?20 - 29 ?? Adequate ?30 - 99 ?? Toxic ? >99 Total 25OH Vitamin D concentration is determined by competitive binding chemiluminescent immunoassay using WiTricity DxI 800 Immunoassay system. Blood (Blood, Venous) Venipuncture / Unknown 11/27/2020 8:49 AM EDT 11/27/2020 8:49 AM EDT Rufina Sims GENERAL LAB Final Result Performing Organization Address City/State/[facility] Co de Phone Number [facility] DEPARTMENT OF PATHOLOGY AND LAB MEDICINE [address] [place] [address] * (PSA) PROSTATIC ANTIGEN TOTAL ONLY (11/27/2020 8:49 AM EDT) [facility] PROSTATIC ANTIGEN 0.8 0.0 - 4.0 ng/mL 11/27/2020 12:32 PM EDT [facility] DEPARTMENT OF PATHOLOGY AND LAB MEDICINE Comment: PSA (ng/mL) Probability of Cancer in Men with Negative JHON ?0-2 ? 1% ?2-4 ?15% ?4-10 ? 25% ?>10 ?50% Serum PSA concentrations, regardless of value, should not be interpreted as definitive evidence for the presence or absence of cancer. ?? The optimal PSA threshold for biopsy has not been established. Prostate biopsy is required for the diagnosis of cancer. This test was performed using the Moon[employer] DXI Chemiluminescent Immunoassay at [facility]. Blood (Blood, Venous) Venipuncture / Unknown 11/27/2020 8:49 AM EDT 11/27/2020 8:49 AM EDT us Rufina Major [facility] GENERAL LAB Final Result Performing Organization Address [facility] Co de Phone Number [facility] OF PATHOLOGY AND LAB MEDICINE [address] [place] [phone] * (ABNORMAL) LIPID PROFILE (11/27/2020 8:49 AM EDT) CHOLESTEROL 212(H) <=199 mg/dL 11/27/2020 12:10 PM EDT [facility] DEPARTMENT OF PATHOLOGY AND LAB MEDICINE HDL 46 >=41 mg/dL 11/27/2020 12:10 PM EDT [facility] DEPARTMENT OF PATHOLOGY AND LAB MEDICINE CHOL/HDL RATIO 4.6 <=4.9 11/27/2020 12:10 PM EDT [facility] DEPARTMENT OF PATHOLOGY AND LAB MEDICINE LDL 111 <=130 mg/dL 11/27/2020 12:10 PM EDT [facility] DEPARTMENT OF PATHOLOGY AND LAB MEDICINE TRIGLYCERIDES 275(H) <=149 mg/dL 11/27/2020 12:10 PM EDT [facility] DEPARTMENT OF PATHOLOGY AND LAB MEDICINE FASTING STATUS Random 11/27/2020 12:10 PM EDT [facility] DEPARTMENT OF PATHOLOGY AND LAB MEDICINE Blood (Blood, Venous) Venipuncture / Unknown 11/27/2020 8:49 AM EDT 11/27/2020 8:49 AM EDT us Rufina Major Md Sims GENERAL LAB Final Result Performing Organization Address [facility] Co de Phone Number [facility] PATHOLOGY AND LAB MEDICINE [address] [place] [phone] * (ABNORMAL) HEMOGLOBIN A1C (11/27/2020 8:49 AM EDT) HEMOGLOBIN A1C 5.8(H) <5.7 % 11/27/2020 2:00 PM EDT [facility] DEPARTMENT OF PATHOLOGY AND LAB MEDICINE Comment: Non-Diabetic Reference Range ??<5.7% Pre-Diabetic Reference Range ?? 5.7% - 6.4% Diabetic Reference Range ?>6.4% The [place] Diabetes Association recommends that the goal of therapy should be a hemoglobin A1C of < 7.0% and that physicians should reevaluate the treatment regimen in patients with hemoglobin A1C values consistently > 8.0%. ESTIMATED AVERAGE GLUCOSE 120 mg/dL 11/27/2020 2:00 PM EDT [facility] DEPARTMENT OF PATHOLOGY AND LAB MEDICINE [...] 31(8);1476 Blood (Blood, Venous) Venipuncture / Unknown 11/27/2020 8:49 AM EDT 11/27/2020 8:49 AM EDT us Rufina Sims GENERAL LAB Final Result [facility] DEPARTMENT OF PATHOLOGY AND LAB MEDICINE [address] [place] [address] documented in this encounter Visit Diagnoses Diagnosis Encounter for annual general medical examination without abnormal findings in adult- Primary Hyperlipidemia LDL goal <130 Other and unspecified hyperlipidemia Vitamin D deficiency Unspecified vitamin D deficiency Class 2 obesity due to excess calories without serious comorbidity with body mass index (BMI) of 36.0 to 36.9 in adult Prediabetes Other abnormal glucose Colon cancer screening Special screening for malignant neoplasms, colon documented in this encounter Discontinued Medications Medication Sig Discontinue Reason Start Date End Da te amoxicillin 500 mg capsuleIndications:Pro phylactic antibiotic Take 4 capsules by mouth as instructed 1 hour before dental procedure 07/26/2020 11/27/2020 cephalexin 500 mg capsule TAKE 1 CAPSULE (500 MG TOTAL) BY MOUTH 4 (FOUR) TIMES A DAY FOR 14 DAYS. 03/08/2020 11/27/2020 omeprazole magnesium (PRILOSEC ORAL) Take by mouth 11/27/2020 acetaminophen (TYLENOL) 325 mg capsule Take by mouth 11/27/2020 tiZANidine 2 mg tablet 03/05/2020 Mupirocin 2 % Ointment APPLY TOPICALLY 2 TIMES A DAY FOR 5 DAYS APPLY TOPICALLY INSIDE EACH NOSTRIL TWICE DAILY FOR 5 DAYS. 02/21/2020 11/27/2020 gabapentin 100 mg capsule 03/05/2020 11/27/2020 Cholecalciferol, Vitamin D3, 50 mcg (2,000 unit) capsule TAKE 3 CAPSULES (6,000 UNITS TOTAL) BY MOUTH DAILY. 02/15/2020 11/27/2020 simvastatin 10 mg tabletIndications:Hype rlipidemia LDL goal <130 TAKE 1 TABLET BY MOUTH EVERY DAY 10/30/2019 11/27/2020 documented as of this encounter Care Teams Safety Deposit Boxes Custodian Relationship Specialty Start Date End Date Rufina Sims MD [address] [place] [address] PCP - General Internal Medicine 02/02/18 09/22/22 Rufina Sims MD [address] [place] [address] PCP - Payer 06/16/18 02/05/22 documented as of this encounter
--- OUTSIDE RECORDS SUMMARY | 2024-09-23 19:04 | XMS_ITS | Encounter Summary ---
Author Organization [facility] Address 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 file Not on file documented as of this encounter Plan of Treatment Upcoming Encounters Date Type Department Care Team (Late Contact Info) Description 04/11/2025 8:00 AM EDT Office Visit [place] [facility] [address] [place] [phone] Jaimee Espitia MD 2 [place] [phone] documented as of this encounter Visit Diagnoses Not on filedocumented in this encounter Care Teams Loan Manager Relationship Specialty Start Date End Date Rufina Sims MD [address] [place] [phone] PCP - General Internal Medicine 02/02/18 09/22/22 Rufina Sims MD [address] [place] [phone] PCP - Payer 06/16/18 02/05/22 documented as of this encounter
--- OUTSIDE RECORDS SUMMARY | 2024-09-23 19:04 | XMS_ITS | Encounter Summary ---
Author Organization [facility] Address [address] [place] [address] Care Team Providers Care Science Consultant Name Role Phone Rufina Sims Md Primary Care Provider [phone] Rufina Sims Md Unavailable Reason for Referral * Specialty (Priority - w/in a Month ) - Canceled Specialty Diagnoses / Procedures Referred By Contac t Referred To Contact Orthopedics Diagnoses Primary osteoarthritis involving multiple joints Rufina Sims MD [address] [place] [address] Phone: tel: fax: Sa[facility]l Ledesma [facility] [address] [place] [address] Phone: tel: fax: Referral ID Status Reason Start Date Expiration Date Visits Requested Visits Authorized [id number] Canceled Service not locally available 10/09/2019 10/09/2020 3 3 Encounter Details Date Type Department Care Team (Latest Contact Info) Description 10/09/2019 Email Encounter [place] [address] [place] [phone] Rufina Sims MD Primary Osteoarthritis Involving Multiple Joints (Primary Dx) Social History Tobacco Use Types [...] 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 Sims. I gave it a lot of thought over the weekend, and it is time to move forward with surgical intervention including total knee replacement to treat my advanced osteoarthritis. I would like a referral toDr [facility]l [facility] in [place] to receive this treatment. Please letme know if you need anything further from me in order to provide the referral. Thank you, Chalino Boyer documented in this encounter Plan of Treatment Upcoming Encounters Date Type Department Care Team (Late st Contact Info) Description 04/11/2025 8:00 AM EDT Office Visit [facility] [address] [place] [phone] Jaimee Espitia MD 2 [place] [address] Scheduled Referrals Name Type Priority Associated Diagnoses Orde r Schedule REFERRAL TO ORTHOPEDICS REFERRAL/FUTUR E Routine Primary osteoarthritis involving multiple joints Ordered: 10/09/2019 documented as of this encounter Visit Diagnoses Diagnosis Primary osteoarthritis involving multiple joints- Primary documented in this encounter Care Teams Science Consultant Relationship Specialty Start Date End Date Rufina Sims MD [address] [place] [address] PCP - General Internal Medicine 02/02/18 09/22/22 Rufina Sims MD [address] [place] [address], [place] [address] PCP - Payer 06/16/18 02/05/22 documented as of this encounter
--- OUTSIDE RECORDS SUMMARY | 2024-09-23 19:04 | XMS_ITS | Encounter Summary ---
Author Organization [facility] Address [address] 

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
--- OUTSIDE RECORDS SUMMARY | 2024-09-23 19:04 | XMS_ITS | Encounter Summary ---
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 I will also in all likelihood be scheduling surgery soon? Is that covered under this referral, or something separate? Thanks, Chalino ----- Message ----- From: Olinda Birmingham Sent: 10/19/2019 2:13 PM EST To: Jonathan Boyer Subject: RE: Other Hi Chalino, I looked at your referral status and it looks like the referral was approved for 3 additional visits. If you need me to fax the referral over to Dr. Ledesma's office I will. Best, Olinda Birmingham [place] ----- Message ----- From: Jonathan Boyer Sent: 10/19/2019 2:05 PM EST To: RUFINA SIMS MD Subject: Other Hi Dr. Sims, I???m following up on my referral request for Dr. Ledesma for my knee osteoarthritis . The referral still shows ???Pending Additional Auth Review?? in my patient portal. I have had bloodwork done at [facility], and am preparing to schedule additional visits and surgery, so I want to make sure the referral is approved before I get too far down this path. Thank you, Chalino Boyer documented in this encounter Plan of Treatment Upcoming Encounters Date Type Department Care Team (Late st Contact Info) Description 04/11/2025 8:00 AM EDT Office Visit [facility] 2 [place] [phone] Jaimee Espitia MD 2 [place] [phone] documented as of this encounter Visit Diagnoses Not on filedocumented in this encounter Care Teams Airplane Pilot Crop Dusting Relationship Specialty Start Date End Date Rufina Sims MD 2 [place] [phone] PCP - General Internal Medicine 02/02/18 09/22/22 Rufina Sims MD 2 [place] [phone] PCP - Payer 06/16/18 02/05/22 documented as of this encounter
--- OUTSIDE RECORDS SUMMARY | 2024-09-23 19:04 | XMS_ITS | Encounter Summary ---
Author Organization [facility] Address [address] [facility] [address] [place] [address] Care Team Providers Care Jig Mill Operator Name Role Phone Rufina Sims Md Primary Care Provider [phone] Rufina Sims Md Unavailable [phone] Reason for Visit * Imaging (STAT) - Closed Specialty Diagnoses / Procedures Referred By Contac t Referred To Contact Diagnoses Right leg swelling Procedures US VENOUS DVT LOWER EXT RT Zach Wesley MD [address] [employer] [address] Phone: tel: fax: Referral ID Status Reason Start Date Expiration Date Visits Re quested Visits Authorized [id number] Closed 02/06/2020 02/06/2021 1 1 Encounter Details Date Type Department Care Team ([facility] st Contact Info) Description 02/06/2020 12:45 PM EDT Radiology [facility] 2 [place] [phone] Right leg swelling Social History Tobacco Use Types Packs/Day Years [...] 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 us Zach Wesley [facility] VASCULAR CARDIOLOGY F inal Result documented in this encounter Visit Diagnoses Diagnosis Right leg swelling documented in this encounter Care Teams Jig Mill Operator Relationship Specialty Start Date End Date Rufina Sims MD [address] [place] [phone] PCP - General Internal Medicine 02/02/18 09/22/22 Rufina Sims MD 2 [place] [phone] PCP - Payer 06/16/18 02/05/22 documented as of this encounter
--- OUTSIDE RECORDS SUMMARY | 2024-09-23 19:04 | XMS_ITS | Encounter Summary ---
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 Unable to assess 03/08/2020 2:49 PM EDT documented as of this encounter Plan of Treatment Upcoming Encounters Date Type Department Care Team (Late st Contact Info) Description 04/11/2025 8:00 AM EDT Office Visit [facility] 2 [place] [address] Jaimee Espitia MD 2 [place] [phone] documented as of this encounter Visit Diagnoses Not on filedocumented in this encounter Care Teams Senior Qa Tester Relationship Specialty Start Date End Date Rufina Sims MD 2 [place] [address] PCP - General Internal Medicine 02/02/18 09/22/22 Rufina Sims MD 2 [place] [address] PCP - Payer 06/16/18 02/05/22 documented as of this encounter
--- OUTSIDE RECORDS SUMMARY | 2024-09-23 19:04 | XMS_ITS | Encounter Summary ---
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 Not on file documented as of this encounter Plan of Treatment Upcoming Encounters Date Type Department Care Team (Late Contact Info) Description 04/11/2025 8:00 AM EDT Office Visit [facility] 2 [place] [phone] Jaimee Espitia MD 2 [place] [phone] documented as of this encounter Visit Diagnoses Not on filedocumented in this encounter Care Teams Line Lead Relationship Specialty Start Date End Date Rufina Sims MD 2 [place] [phone] PCP - General Internal Medicine 02/02/18 09/22/22 Rufina Sims MD 2 [place] [phone] PCP - Payer 06/16/18 02/05/22 documented as of this encounter
--- OUTSIDE RECORDS SUMMARY | 2024-09-23 19:04 | XMS_ITS | Encounter Summary ---
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 on file Not on file documented as of this encounter Plan of Treatment Upcoming Encounters Date Type Department Care Team (Late st Contact Info) Description 04/11/2025 8:00 AM EDT [facility] 2 [place] [phone] Jaimee Espitia MD 2 [place] [phone] documented as of this encounter Visit Diagnoses Not on filedocumented in this encounter Care Teams Colorectal Surgeon Relationship Specialty Start Date End Date Rufina Sims MD 2 [place] [phone] PCP - General Internal Medicine 02/02/18 09/22/22 Rufina Sims MD 2 [place] [phone] PCP - Payer 06/16/18 02/05/22 documented as of this encounter
--- OUTSIDE RECORDS SUMMARY | 2024-09-23 19:04 | XMS_ITS | Encounter Summary ---
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
--- OUTSIDE RECORDS SUMMARY | 2024-09-23 19:05 | XMS_ITS | Encounter Summary ---
Author Organization [facility] Address [address] [facility] [address] [place] [address] Care Team Providers Care Chief Engineer Name Role Phone Brenda Bruner Primary Care Provider [phone] Brenda Bruner Unavailable [phone] Reason for Referral * Specialty (14 Days) - Closed Specialty Diagnoses / Procedures Referred By Contac t Referred To Contact Physiatry Diagnoses Midline low back pain with sciatica, sciatica laterality unspecified Johnna De La Garza Pa-C 2 [place] [address] Phone: tel: fax: Sharmaine Headley MD [facility] [address] [facility] [address] [place] [address] Phone: tel: fax: Referral ID Status Reason Start Date Expiration Date V isits Requested Visits Authorized [id number] Closed Service not locally available 11/08/2015 11/05/2016 6 6 Encounter Details Date Type Department Care Team (Late st Contact Info) Description 11/07/2015 Telephone [facility] 2 [place] [phone] Johnna De La Garza Pa-C 2 [place] [address] Midline Low Back Pain With Sciatica, Sciatica Laterality Unspecified (Primary Dx) Social History Tobacco Use Types Packs/Day Years Used Date Smoking Tobacco: Never Assessed Sex and Gender Information Value Date Recorded Sex Assigned at Male 10/06/2019 9:20 AM EST Legal Sex Male 4:43 AM EDT Gender Identity Male 10/06/2019 9:20 AM EST Sexual Orientation Straight 10/06/2019 9: 20 AM EST documented as of this encounter Miscellaneous Notes * Telephone Encounter - Johnna De La Garza Pa-C - 11/08/2015 1:37 PM EDT Called the pt and informed him about his Xray results. Referral to physiatry was provided. Pt agreed with the plan. * Telephone Encounter - Serene Knapp - 11/07/2015 3:08 PM EDT Patient requested to speak with johnna - ng Message routed to johnna * Telephone Encounter - Harini Walker - 11/07/2015 2:47 PM EDT Patient is calling back to speak to Johnna bout the results of a x-ray of his back he had done . documented in this encounter Plan of Treatment Upcoming Encounters Date Type Department Care Team (Late st Contact Info) Description 04/11/2025 8:00 AM EDT Office Visit [facility] 2 [place] [phone] Jaimee Espitia MD 2 [place] [phone] Scheduled Referrals Name Type Priority Associated Diagnoses Orde r Schedule REFERRAL TO PHYSIATRY REFERRAL/FUTURE Routine Midline low back pain with sciatica, sciatica laterality unspecified Expected: 11/22/2015 (Approximate), Expires: 11/07/2016 documented as of this encounter Visit Diagnoses Diagnosis Midline low back pain with sciatica, sciatica laterality unspecified- Primary documented in this encounter Care Teams Chief Engineer Relationship Specialty Start Date End Date Brenda Bruner [facility] [address] [address] PCP - General Internal Medicine 10/14/15 02/01/18 Brenda Bruner [facility] [address] [address] PCP - Payer 10/28/15 06/15/18 documented as of this encounter
--- OUTSIDE RECORDS SUMMARY | 2024-09-23 19:05 | XMS_ITS | Encounter Summary ---
Author Organization [facility] Address [address] [facility] [address] [place] [address] Care Team Providers Care Electrical Maintenance Engineer Name Role Phone Brenda Bruner Primary Care Provider [phone] Brenda Bruner Unavailable [phone] Reason for Visit * Specialty (Priority - w/in a Month ) - Closed Specialty Diagnoses / Procedures Referred By Contac t Referred To Contact Nutrition Diagnoses Obesity (BMI 30.0-34.9) Hyperlipidemia LDL goal <130 Hypertriglyceridemia Brenda Bruner [facility] [address] [place] [address] Phone: tel: fax: [facility] [address] [place] [phone] Phone: tel: Referral ID Status Reason Start Date Expiration Date Visits Re quested Visits Authorized [id number] Closed 04/26/2017 04/26/2018 6 6 Encounter Details Date Type Department Care Team (Late st Contact Info) Description 04/26/2017 4:00 PM EDT Office Visit [facility] [address] [place] [phone] [place] [address] Obesity (BMI 30.0-34.9) (Primary Dx); Hyperlipidemia LDL goal <130; BMI 32.0-32.9,adult Social History Tobacco Use Types Packs/Day Years [...] 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 Considering the simple recipes that can be added to the meals you already know how to make. How canyou work on your systems at home to make it a bit easier for you. Considering 2 fruits a day minimum. Considering the different vegetables that you have had in the past. Considering flavoring. Considering method of cooking. 3 cups of veggies a day. Spending time in the evening to reflect. Food journals in general can be helpful. [place] perhaps 1x every couple of weeks. You need variety. Motivations - what are they, reflecting back on these. documented in this encounter Progress Notes * [address] - 04/26/2017 4:00 PM EDT April 26, 2017 Dr. Brenda Bruner MD, Thank you for referring Jonathan Boyer to the Nutrition Department. 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 Access to [place] [employer] at reduced cost, hasn't used them. Prefers the biking for now. Household: - Lives with . - No children. - 2 dogs. She does most of the cookign. Social: Used to live in [place], easier with less commute. Now in [place], much longer commute. Does commute part way with driving other part with biking. Jonathan acknowledges feeling overwhelmed by number of changes he wants to make but finding himself not sure where to start and frustrated that he continues to do things like eat junk that he feels he shouldn't do. Does feel that eats too little veggies. Too much junk food. On medicine now for cholesterol and this bothers him. He'd like to get his actions under control and get off the meds. Does want to work tolose weight and acknowledges his need for support to do this. Since college has struggled with weight. Athlete in HS. He has previously had success with weight loss, he lost 20 lbs, was about 205 lbs. This was 7 yearsago. (~2009). Kept weight off for 3-4 years. He started to gain. He isn't sure exactly why, perhapspartly the changes with moving. Is interested in considering a plant based diet, but realizes this is extreme. Bought flexitarian cook book. Does a lot of grilling but doesn't include veg. Encouraged first step of thinking of veg to grill and trying simple recipes. Saving the recipes that work for reference. Thinking about what he likes to eat and seeing if there is a way to make a slight modification as starting point. Limit to only 1 new recipe a week. does the cooking. WEIGHT HISTORY: Weighs himself at home, this AM, 223 lbs. BMI: Estimated body mass index is 32.96 kg/(m^2) as calculated from the following: Height as of 02/17/17: 5' 8.75 (1.746 m). Weight as of 02/17/17: 221 lb 9.6 oz (100.5 kg). PREVIOUS WEIGHT LOSS PROGRAMS: No formal programs. ASSOCIATED HEALTH CONCERNS: Active Ambulatory Problems Diagnosis Date Noted ??? Obesity (BMI 30.0-34.9) 12/12/2015 ? ? Hyperlipidemia LDL goal <130 12/12/2015 ??? Primary osteoarthritis involving multiple joints 12/12/2015 ??? Prostate cancer screening encounter, options and risks discussed 02/17/2017 ??? Family history of thyroid disease in sister 02/17/2017 ??? Family history of diabetes mellitus (DM) 02/17/2017 Resolved Ambulatory Problems Diagnosis Date Noted ??? No Resolved Ambulatory Problems Past Medical History: Diagnosis Date ??? Pneumonia 1994 History of Disordered Eating: Unclear, appears impulsive eating. ? Self soothing through eating, particular during day eating candy, sugary foods such as muffins/ cookies. Doesn't plan for this, he just sees it and will get it. Does not appear that he is particularly enjoying the food. He does express guilt about making these decisions. NUTRITION ASSESSMENT 24 hour recall: Leave house at 7 AM. Breakfast: No food before leave for work. Breakfast sandwich at work. Occasioanlly fruit. Discussed how to make breakfast satisfying. Ideas. Lunch: - Tries to bring lunch. Not always works well. Burgers/ burritos. 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 The [employer] closed, panera closed. Does have clover, but of course could not have this daily. Snacks: Might have energy bar. Kind bars. Cookies that are right by office. Used to drink 2 20-oyunce bottles of diet coke a day. Now water. Or tea. Unsweetened/ lightly sweetened. Makes iced tea at home. Not home until 6:30-7 PM. This is where it is messy. Not much planning. Often take out. Too tired to cook. Gets home and if cooking then not eating until 8:30. Discussed strategies. Importance of foods mostly already finishedto eat - such as just reheating food already cooked/ slow cooker meals. Working on this in steps over time. Supplements: not discussed. Alcohol: not asked EXERCISE: Knees a problem. Biking [place]. Enjoys biking.Mountain bike. Would like to get back into training. [place] commute - part of way ride the 7 miles into work 30 mintues. READINESS FOR CHANGE:Action NUTRITION PLAN: weight loss well balanced diet. Interested in increasing plant based diet principles. The following education materials were used: A list of non-starchy vegetables and starchy vegetables was provided. Reviewed in detail the Breakfast Equation. Be sure to have Protein plus Grain plus Fruit. Breakfast provides energy and helps you focus, keeps you full through the morning and it helps you maintainyour weight. A list outlining sample lean proteins high fiber grains and fruit was provided. GOALS FOR MEDICAL NUTRITION THERAPY: 1. Decrease BMI 2. Make healthier food choices 3. Incorporate regular physical activity into lifestyle Patient goals: Starting the day off with a balanced breakfast. Considering the simple recipes that can be added to the meals you already know how to make. How canyou work on your systems at home to make it a bit easier for you. Considering 2 fruits a day minimum. Considering the different vegetables that you have had in the past. Considering flavoring. Considering method of cooking. 3 cups of veggies a day. Spending time in the evening to reflect. Food journals in general can be helpful. [place] perhaps 1x every couple of weeks. You need variety. Motivations - what are they, reflecting back on these. FOLLOW UP: 2 months with food record. This 40 minute visit was devoted to medical nutrition therapy. documented in this encounter Plan of Treatment Upcoming Encounters Date Type Department Care Team (Late st Contact Info) Description 04/11/2025 8:00 AM EDT Office Visit [facility] 2 [place] [phone] Jaimee Espitia MD 2 [place] [phone] documented as of this encounter Procedures Procedure Name Priority Date/Time Associated Diagnosis Comments MEDICAL NUTRITION THERAPY INDIV INIT EACH 15 MIN Routine 04/28/2017 3:03 PM EDT Obesity (BMI 30.0-34.9) Hyperlipidemia LDL goal <130 BMI 32.0-32.9,adult REFERRAL TO NUTRITION Routine 04/26/2017 Obesity (BMI 30.0-34.9) Hyperlipidemia LDL goal <130 Hypertriglyceridemia documented in this encounter Visit Diagnoses Diagnosis Obesity (BMI 30.0-34.9)- Primary Obesity, unspecified Hyperlipidemia LDL goal <130 Other and unspecified hyperlipidemia BMI 32.0-32.9,adult Body Mass Index 32.0-32.9, adult documented in this encounter Orders PROCEDURES Count Last Ordered Date First Orde red Date MEDICAL NUTRITION THERAPY IN DIV INIT EACH 15 MIN 1 04/28/2017 documented in this encounter Care Teams Electrical Maintenance Engineer Relationship Specialty Start Date End Date Brenda Bruner [facility] [address] [place] [address] PCP - General Internal Medicine 10/14/15 02/01/18 Brenda Bruner [facility] [address] [place] [address] PCP - Payer 10/28/15 06/15/18 documented as of this encounter
--- OUTSIDE RECORDS SUMMARY | 2024-09-23 19:05 | XMS_ITS | Encounter Summary ---
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 Not on file documented as of this encounter Plan of Treatment Upcoming Encounters Date Type Department Care Team (Late st Contact Info) Description 04/11/2025 8:00 AM EDT Office Visit [facility] 2 [place] [address] Jaimee Espitia MD 2 [place] [address] documented as of this encounter Visit Diagnoses Not on filedocumented in this encounter Care Teams Dry Pan Feeder Relationship Specialty Start Date End Date Brenda Bruner [facility] [place] [facility] [address] [place] [address] PCP - General Internal Medicine 10/14/15 02/01/18 Brenda Bruner [facility] [place] [facility] [address] [place] [address] PCP - Payer 10/28/15 06/15/18 documented as of this encounter
--- OUTSIDE RECORDS SUMMARY | 2024-09-23 19:05 | XMS_ITS | Encounter Summary ---
Author Organization [facility] Address [address] [facility] [address] [place] [address] Care Team Providers Care Special Education Teachers Name Role Phone Poc, Non [facility] Pcp Or Primary Care Provider Marycarmen vailable Reason for Visit * Referral (Routine) - Closed Specialty Diagnoses / Procedures Referred By Valerie valdez Referred To Contact Guillermo Neri Phone: tel: [address] Referral ID Status Reason Start Date Expiration Date Visits Re quested Visits Authorized [id number] Closed 05/01/2008 05/01/2009 3 3 Encounter Details Date Type Department Care Team (Latest Contact Info) Description 06/12/2008 12:00 PM EDT Office Visit [facility] [address] [place] [phone] HYPERLIPIDEMIA (Primary Dx) Social History Tobacco Use Types Packs/Day Years Used Date Smoking Tobacco: Never Assessed Sex and Gender Information Value Date Recorded Sex Assigned at Male 10/06/2019 9:20 AM EST Legal Sex Male 4:43 AM EDT Gender Identity Male 10/06/2019 9:20 AM EST Sexual Orientation Straight 10/06/2019 9: 20 AM EST documented as of this encounter Last Filed Vital Signs Vital Sign Reading Time Taken Comments Blood Pressure - - Pulse - - Temperature - - Respiratory Rate - - Oxygen Saturation - - Inhaled Oxygen Concentration - - Weight 100.9 kg (222 lb 6.4 oz) 008 12:00 PM EDT Height - - Body Mass Index 31.91 05/01/2008 2:00 PM EDT documented in this encounter Progress Notes * 06/12/2008 12:00 PM EDTPt (prefer quick meals, dislikes vegetables, lives with girlfriend) lost 11# likely due to eating more balanced with increased fruit and vegetables and reduced junk food plus eating out less. Body Mass Index is 31.98 It is based on height of 5' 10 on 05/01/2008 and weight of 222.4 lbs on 06/12/2008. Diet Recall: Breakfast (8-9a)- banana + oatmeal + ground flaxseed + diet Coke Snack (10:30a)- fruit OR lowfat triple mcnally muffin Snack (11-12p)- diet Coke + Breakfast FiberOne caramel Bar Lunch ()- Lean Cuisine or Smart Ones frozen meals OR turkey sandwich Snack - fruit Dinner (8p)- grilled tuna + healthy risotto + asparagus + squash + salad OR chicken Snack ()- 1 scoop gelato Beverage - diet Coke and diet Tea, water Supplements: GLUCOSAMINE/CHONDROITIN, Fish Oil, Men's MVI Alcohol: more than 2 drinks/day (3-6 beers at once an then none for a while) Exercise: mountain biker (2xwk, 60-90min), 50% walking to work, plus walking dogs at night - considering a gym membership Nutrition Plan: Continue 3-meal + 3-snack pattern with emphasis on fruits and vegetables Find winter activity Goals of Medical Nutrition Therapy: improve lipid profile weight loss increase physical activity Follow up 4-8 weeks with 1-week food records This 30 minute visit was devoted to medical nutrition therapy documented in this encounter Plan of Treatment Upcoming Encounters Date Type Department Care Team (Late st Contact Info) Description 04/11/2025 8:00 AM EDT Office Visit [facility] 2 [place] [address] Jaimee Espitia MD 2 [place] [address] documented as of this encounter Procedures Procedure Name Priority Date/Time Associated Diagnosis Comments MEDICAL NUTRITION THERAPY INDIV RE-ASSESS EACH 15 MIN Routine 06/12/2008 1:40 PM EDT Hyperlipidemia documented in this encounter Visit Diagnoses Diagnosis Hyperlipidemia- Primary Other and unspecified hyperlipidemia documented in this encounter Orders PROCEDURES Count Last Ordered Date First Orde red Date MEDICAL NUTRITION THERAPY IN DIV RE-ASSESS EACH 15 MIN 1 06/12/2008 documented in this encounter Care Teams Special Education Teachers Relationship Specialty Start Date End Date Poc, Non [facility] Pcp Or PCP - General 03/20/08 10/13/15 documented as of this encounter
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
--- OUTSIDE RECORDS SUMMARY | 2024-09-23 19:05 | XMS_ITS | Encounter Summary ---
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 on file Not on file documented as of this encounter Plan of Treatment Upcoming Encounters Date Type Department Care Team (Late st Contact Info) Description 04/11/2025 8:00 AM EDT Office Visit [facility] [address] [place] [phone] Jaimee Espitia MD [address] [place] [phone] documented as of this encounter Visit Diagnoses Not on filedocumented in this encounter Care Teams Police Service Technician Relationship Specialty Start Date End Date Brenda Bruner [facility] [address] [place] [address] PCP - General Internal Medicine 10/14/15 02/01/18 Brenda Bruner [facility] [address] [place] [address] PCP - Payer 10/28/15 06/15/18 documented as of this encounter
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
--- OUTSIDE RECORDS SUMMARY | 2024-09-23 19:05 | XMS_ITS | Encounter Summary ---
Author Organization [facility] Address [address] [facility] [address] [place] [address] Care Team Providers Care Mathematics Technician Name Role Phone Brenda Bruner Primary Care Provider [phone] Brenda Bruner Unavailable [phone] Reason for Referral * Specialty (Priority - w/in a Month ) - Closed Specialty Diagnoses / Procedures Referred By Contac t Referred To Contact Nutrition Diagnoses Obesity (BMI 30.0-34.9) Hyperlipidemia LDL goal <130 Hypertriglyceridemia Brenda Bruner [facility] [address] [place] [address] Phone: tel: fax: [facility] [address] [place] [address] Phone: tel: Referral ID Status Reason Start Date Expiration Date Visits Re quested Visits Authorized [id number] Closed 04/26/2017 04/26/2018 6 6 Reason for Visit * Reason Comments needs new order for Nutrition Encounter Details Date Type Department Care Team (Late st Contact Info) Description 03/01/2017 Telephone [facility] [address] [place] [address] Brenda Bruner [address] [place] [address] Obesity (Bmi 30.0-34.9) (Primary Dx); Hyperlipidemia Ldl Goal <130; Hypertriglyceridemia Social History Tobacco Use Types Packs/Day Years [...] 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 - * Telephone Encounter - Stephanie Morales - 03/01/2017 4:10 PM EDT Patient called Nutrition to schedule an appt. And was told he needs a new order/referral Called Nutrition: mario Luque=patient needs new order/referral and then they will call him for an appt. documented in this encounter Plan of Treatment Upcoming Encounters Date Type Department Care Team (Late st Contact Info) Description 04/11/2025 8:00 AM EDT [facility] [address] [place] [address] Jaimee Espitia MD 2 [place] [address] documented as of this encounter Procedures Procedure Name Priority Date/Time Associated Diagnosis Comments REFERRAL TO NUTRITION Routine 04/26/2017 Obesity (BMI 30.0-34.9) Hyperlipidemia LDL goal <130 Hypertriglyceridemia documented in this encounter Results * REFERRAL TO NUTRITION (04/26/2017) Brenda GUALLPA REFERRALS Final Result documented in this encounter Visit Diagnoses Diagnosis Obesity (BMI 30.0-34.9)- Primary Obesity, unspecified Hyperlipidemia LDL goal <130 Other and unspecified hyperlipidemia Hypertriglyceridemia Pure hyperglyceridemia documented in this encounter Care Teams Mathematics Technician Relationship Specialty Start Date End Date Brenda Bruner [facility] [address] PCP - General Internal Medicine 10/14/15 02/01/18 Brenda Bruner [facility] [address] PCP - Payer 10/28/15 06/15/18 documented as of this encounter
--- OUTSIDE RECORDS SUMMARY | 2024-09-23 19:05 | XMS_ITS | Encounter Summary ---
Author Organization [facility] Address [address] [facility] [address] [place] [address] Care Team Providers Care Microelectronics Engineer Name Role Phone Brenda Bruner Primary Care Provider [phone] Brenda Bruner Unavailable [phone] Encounter Details Date Type Department Care Team (Late st Contact Info) Description 12/19/2015 Letter (Out) [facility] [address] [place] [phone] Gary Mart MD [facility] [address] 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 Not on file documented as of this encounter Plan of Treatment Upcoming Encounters Date Type Department Care Team (Late st Contact Info) Description 04/11/2025 8:00 AM EDT Office Visit [facility] 2 [place] [address] Jaimee Espitia MD 2 [place] [phone] documented as of this encounter Visit Diagnoses Not on filedocumented in this encounter Care Teams Microelectronics Engineer Relationship Specialty Start Date End Date Brenda Bruner [facility] [address] [place] [address] PCP - General Internal Medicine 10/14/15 02/01/18 Brenda Bruner [facility] [address] [place] [address] PCP - Payer 10/28/15 06/15/18 documented as of this encounter
--- OUTSIDE RECORDS SUMMARY | 2024-09-23 19:05 | XMS_ITS | Encounter Summary ---
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 [place] * Telephone Encounter - Ana Perez - 02/17/2017 12:02 PM EDT ----- Message from Brenda Bruner MD sent at 02/17/2017 11:15 AM EDT ----- Please fax last lumbar spine cxr to [facility] ty documented in this encounter Plan of Treatment Upcoming Encounters Date Type Department Care Team (Late st Contact Info) Description 04/11/2025 8:00 AM EDT [facility] [address] [place] [address] Jaimee Espitia MD [address] [place] [address] documented as of this encounter Visit Diagnoses Not on filedocumented in this encounter Care Teams Income Tax Consultant Relationship Specialty Start Date End Date Brenda Bruner [facility] [address] [place] [address] PCP - General Internal Medicine 10/14/15 02/01/18 Brenda Bruner [facility] [address] [place] [address] PCP - Payer 10/28/15 06/15/18 documented as of this encounter
--- OUTSIDE RECORDS SUMMARY | 2024-09-23 19:05 | XMS_ITS | Encounter Summary ---
Author Organization [facility] Address [address] 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 Sinusitis: Care Instructions Your Care Instructions Sinusitis is an infection of the lining of the sinus cavities in your head. Sinusitis often followsa cold. It causes pain and pressure in your head and face. In most cases, sinusitis gets better on its own in 1 to 2 weeks. But some mild symptoms may last for several weeks. Sometimes antibiotics are needed. Follow-up care is a blake part of your treatment and safety. Be sure to make and go to all appointments, and call your doctor if you are having problems. It's also a good idea to know your test resultsand keep a list of the medicines you take. How can you care for yourself at home? ?? Take an yaqq-knw-pgaosju pain medicine, such as acetaminophen (Tylenol), ibuprofen (Advil, Motrin), or naproxen (Aleve). Read and follow all instructions on the label. ?? If the doctor prescribed antibiotics, take them as directed. Do not stop taking them just because you feel better. You need to take the full course of antibiotics. ?? Be careful when taking jkxz-sdr-tcdbgxv cold or flu medicines and Tylenol at the same time. Manyof these medicines have acetaminophen, which is Tylenol. Read the labels to make sure that you are not taking more than the recommended dose. Too much acetaminophen (Tylenol) can be harmful. ?? Breathe warm, moist air from a steamy shower, a hot bath, or a sink filled with hot water. Avoidcold, dry air. Using a humidifier in your home may help. Follow the directions for cleaning the machine. ?? Use saline (saltwater) nasal washes to help keep your nasal passages open and wash out mucus andbacteria. You can buy saline nose drops at a grocery store or drugstore. Or you can make your own at home by adding 1 teaspoon of salt and 1 teaspoon of baking soda to 2 cups of distilled water. If you make your own, fill a bulb syringe with the solution, insert the tip into your nostril, and squeeze gently. Blow your nose. ?? Put a hot, wet towel or a warm gel pack on your face 3 or 4 times a day for 5 to 10 minutes eachtime. ?? Try a decongestant nasal spray like oxymetazoline (Afrin). Do not use it for more than 3 days magdiel row. Using it for more than 3 days can make your congestion worse. When should you call for help? Call your doctor now or seek immediate medical care if: ?? You have new or worse swelling or redness in your face or around your eyes. ?? You have a new or higher fever. Watch closely for changes in your health, and be sure to contact your doctor if: ?? You have new or worse facial pain. ?? The mucus from your nose becomes thicker (like pus) or has new blood in it. ?? You are not getting better as expected. Where can you learn more? Go to http://[email or web address].net/[facility]/. Enter I933 in the search box to learn more about Sinusitis: Care Instructions. Current as of: March 13, 2016 Content Version: 11.1 ?? [id number] [employer]. Care instructions adapted under license by [employer]. Ifyou have questions about a medical condition or this instruction, always ask your healthcare professional. [employer] disclaims any warranty or liability for your use of this information. documented in this encounter Ordered Prescriptions Prescription Sig Dispense Quantity Refills Last Filled Start Date End Date benzonatate (TESSALON) 100 mg capsuleIndications :Acute frontal sinusitis, recurrence not specified Take 1 capsule by mouth three times daily as needed for cough 30 capsule 07/13/2017 8 amoxicillin 500 mg capsuleIndications :Acute frontal sinusitis, recurrence not specified Take 1 capsule by mouth three times daily for 10 days 30 capsule 07/13/2017 7 documented in this encounter Progress Notes * Izabel Robb Pa-C - 07/13/2017 9:20 AM EST HPI: Jonathan Boyer is a 52 yrs. male who complains of sinus congestion and pressure with cough x 1 week. Denies any f/c. Denies any ear pain, sore throat. Pt has been taking cold medicine, but no other medications. No sick contacts. Denies any smoking, no history of asthma. ROS: constitutional, ENT, respiratory, GI otherwise negative. Smoking history: History Smoking Status ??? Never Smoker Smokeless Tobacco ??? Not on file EXAM: Well-nourished well-developed male in no apparent respiratory distress, with moderate cough. Vital signs as above. Skin: normal, no cyanosis. HEENT: -Eyes-normal appearance, PERRL, EOMI, conjunctiva normal -Ears-normal external exam, canals and TMs -Nose-normal external exam, nasal mucous membranes -Sinuses - mild maxillary tenderness, moderate frontal tenderness -Throat-clearNeck: Supple; thyroid-normal. Nodes: no cervical adenopathy; no supraclavicular adenopathy. Chest: clear to auscultation. ASSESSMENT: Sinusitis PLAN: -Routine symptomatic measures discussed. -Claritin. -Tessalon pearls. -Amoxicillin. -Return visit if symptoms persist or progress in any way despite above plan. documented in this encounter Plan of Treatment Upcoming Encounters Date Type Department Care Team (Late st Contact Info) Description 04/11/2025 8:00 AM EDT [facility] 2 [place] [address] Jaimee Espitia MD 2 [place] [address] documented as of this encounter Visit Diagnoses Diagnosis Acute frontal sinusitis, recurrence not specified- Primary documented in this encounter Discontinued Medications Medication Sig Discontinue Reason Start Date End Da te Dextrin 3 gram/3.5 gram Powder Take 1 capful by mouth three times weekly 07/13/2017 methylPREDNISolone (MEDROL, CHUNG,) 4 mg tablets,dose packIndications:Poison binta Take 6-5-4-3-2-1 tablets daily as instructed. 03/16/2017 07/13/2017 documented as of this encounter Care Teams Archeology Professor Relationship Specialty Start Date End Date Brenda Bruner [facility] [address] [place] [address] PCP - General Internal Medicine 10/14/15 02/01/18 Brenda Bruner [facility] [address] [place] [address] PCP - Payer 10/28/15 06/15/18 documented as of this encounter
--- OUTSIDE RECORDS SUMMARY | 2024-09-23 19:05 | XMS_ITS | Encounter Summary ---
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 Pt emailed. * Telephone Encounter - Kasey Mendez - 06/30/2016 2:37 PM EST Message routed to Dr. Bruner. Please advise. - ALS * Telephone Encounter - Michelle Jaffe - 06/30/2016 2:20 PM EST Was seen for a physical on 12/12/2015 - was advised to start a statin because of his lipid test result. Patient declined at the time. Patient is now ready to start on a statin and will make his appt with the rn document improvement. Asking Dr Bruner to prescribe this. [facility] #[id number] - [place], [place] - [address] [facility] [address] [facility] [id number] documented in this encounter Plan of Treatment Upcoming Encounters Date Type Department Care Team (Late st Contact Info) Description 04/11/2025 8:00 AM EDT Office Visit [facility] 2 [place] [address] Jaimee Espitia MD 2 [place] [address] documented as of this encounter Visit Diagnoses Diagnosis Hyperlipidemia LDL goal <130- Primary Other and unspecified hyperlipidemia documented in this encounter Care Teams Mobile Patrol Officer Relationship Specialty Start Date End Date Brenda Bruner [facility] [address] PCP - General Internal Medicine 10/14/15 02/01/18 Brenda Bruner [facility] [address] [place] [address] PCP - Payer 10/28/15 06/15/18 documented as of this encounter
--- OUTSIDE RECORDS SUMMARY | 2024-09-23 19:05 | XMS_ITS | Encounter Summary ---
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 Nina Lamas RD documented in this encounter Plan of Treatment Upcoming Encounters Date Type Department Care Team (Late st Contact Info) Description 04/11/2025 8:00 AM EDT Office Visit [facility] 2 [place] [address] Jaimee Espitia MD 2 [place] [address] documented as of this encounter Visit Diagnoses Not on filedocumented in this encounter Care Teams Shrink Pit Operator Relationship Specialty Start Date End Date Brenda Bruner [facility] [address] [place] [address] PCP - General Internal Medicine 10/14/15 02/01/18 Brenda Bruner [facility] [address] [place] [address] PCP - Payer 10/28/15 06/15/18 documented as of this encounter
--- OUTSIDE RECORDS SUMMARY | 2024-09-23 19:05 | XMS_ITS | Encounter Summary ---
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 [address] [place] [address] PCP - Payer 10/28/15 06/15/18 documented as of this encounter
--- OUTSIDE RECORDS SUMMARY | 2024-09-23 19:05 | XMS_ITS | Encounter Summary ---
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 Take with food. 60 tablet 04/06/2017 07/05/2017 diclofenac 75 mg tablet,delayed release (DR/EC) Take 1 tablet by mouth twice daily as needed . Take with food. 60 tablet 04/06/2017 04/06/2017 documented in this encounter Progress Notes * Idris Sprague PA - 04/06/2017 11:20 AM EDT See dictation Patient Active Problem List [...] HISTORY OF: 1980s R Shoulder Current Outpatient Prescriptions on File Prior to Visit: methylPREDNISolone (MEDROL, CHUNG,) 4 mg tablets,dose pack Take 6-5-4-3-2-1 tablets daily as instructed. Bacillus coagulans 250 million cell tablet, chewable Chew 1 tablet once daily as needed Dextrin 3 gram/3.5 gram Powder Take 1 capful by mouth three times weekly Diclofenac Sodium 1 % Gel Apply 4 grams to the affected area as instructed up to four times daily -no more than 16 g/day. simvastatin 10 mg tablet Take 1 tablet by mouth daily MULTIVITS/IRON FUM/FA/D3/LYCOP (MULTI FOR HIM ORAL) Take by mouth OMEGA-3 FATTY ACIDS (FISH OIL CONCENTRATE ORAL) Take by mouth GLUC/CHND/OM3/DHA/EPA/FISH/STR (GLUCOSAMINE CHONDROITIN PLUS ORAL) Take by mouth No Known Drug Allergies. Social History Social History ??? Marital status: N/A Spouse name: N/A ??? Number of children: N/A ??? 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 Smoking status: Never Smoker ??? Smokeless tobacco: Not on file ??? Alcohol use Yes Comment: 3-4 per week ??? Drug use: No Comment: never IVDU ??? Sexual activity: Yes Partners: Female Comment: monogamous with Other Topics Concern ??? 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 He has been told in the past he would require knee replacement. He enjoys biking, hiking and running. He was seen a couple of weeks ago and treatment options were discussed. He is here today for bilateral knee cortisone injections. He is planning on going on a vacation to [place] this weekend. Assessment/plan: 51-year-old male with advanced bilateral knee osteoarthritis. Procedure: Prior to performing the procedure, a timeout was performed. The following components of the time out were conducted: 1. Verification of patient identity 2. Verification of the exact nature of procedure 3. Verification of procedure site and side 4. Review of allergies 5. Verification of verbal informed consent Under sterile conditions the patient's knees were injected with a 3 mL mix of Kenalog 40 mg and lidocaine 1%. The patient tolerated the injection well. The patient was advised to apply ice after arriving home. He requested a prescription for oral diclofenac, side effects were discussed. He can use this p.r.n. if the cortisone injections or unhelpful. Recommend p.r.n. follow-up. This note was created with [employer] Dict[employer] software. As a result, there may be errors within the document please contact us for clarification necessary. documented in this encounter Plan of Treatment Upcoming Encounters Date Type Department Care Team (Late st Contact Info) Description 04/11/2025 8:00 AM EDT [facility] 2 [place] [address] Jaimee Espitia MD 2 [place] [address] documented as of this encounter Procedures Procedure Name Priority Date/Time Associated Diagnosis Comments INJ ANESTH/STEROID -MAJOR JNT,KYLEIGHGANG Routine 04/06/2017 11:48 AM EDT Primary osteoarthritis of both knees documented in this encounter Visit Diagnoses Diagnosis Primary osteoarthritis of both knees- Primary Primary localized osteoarthrosis, lower leg documented in this encounter Discontinued Medications Medication Sig Discontinue Reason Start Date End Da te Diclofenac Sodium 1 % GelIndications:Chronic pain of both knees Apply 4 grams to the affected area as instructed up to four times daily - no more than 16 g/day. 02/17/2017 04/06/2017 diclofenac 75 mg tablet,delayed release (DR/EC) Take 1 tablet by mouth twice daily as needed . Take with food. 04/06/2017 04/06/2017 documented as of this encounter Orders PROCEDURES Count Last Ordered Date First Orde red Date INJ ANESTH/STEROID -MAJOR JNT,STEFANY ARIZMENDI 1 04/06/2017 SUPPLIES Count Last Ordered Date First Orde red Date TRIAMCINOLONE ACETONIDE, 10MG 1 04/06/2017 documented in this encounter Care Teams Casket Trimmer Relationship Specialty Start Date End Date Brenda Bruner [facility] [address] [place] [address] PCP - General Internal Medicine 10/14/15 02/01/18 Brenda Bruner [facility] [address] [place] [address] PCP - Payer 10/28/15 06/15/18 documented as of this encounter
--- OUTSIDE RECORDS SUMMARY | 2024-09-23 19:05 | XMS_ITS | Encounter Summary ---
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 on file Not on file documented as of this encounter Plan of Treatment Upcoming Encounters Date Type Department Care Team (Late st Contact Info) Description 04/11/2025 8:00 AM EDT Office Visit [facility] 2 [place] [address] Jaimee Espitia MD 2 [place] [address] documented as of this encounter Visit Diagnoses Not on filedocumented in this encounter Care Teams Furniture Builder Relationship Specialty Start Date End Date Brenda Bruner [facility] [address] [address] PCP - General Internal Medicine 10/14/15 02/01/18 Brenda Bruner [facility] [address] [place] [address] PCP - Payer 10/28/15 06/15/18 documented as of this encounter
--- OUTSIDE RECORDS SUMMARY | 2024-09-23 19:05 | XMS_ITS | Encounter Summary ---
Author Organization [facility] Address [address] [facility] [address] [place] [address] Care Team Providers Care Money Room Teller Name Role Phone Brenda Bruner Primary Care Provider [phone] Brenda Bruner Unavailable [phone] Encounter Details Date Type Department Care Team (Late Contact Info) Description 05/20/2016 Email Encounter [facility], [employer] Intel[employer] USED BY [employer] TO CREATE USER MESSAGE ENCOUNTERS BY NON-PROVIDERS Flu Season is Here! 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 on file Not on file documented as of this encounter Plan of Treatment Upcoming Encounters Date Type Department Care Team (Late Contact Info) Description 04/11/2025 8:00 AM EDT Office Visit [facility] 2 [place] [address] Jaimee Espitia MD 2 [place] [address] documented as of this encounter Visit Diagnoses Not on filedocumented in this encounter Care Teams Money Room Teller Relationship Specialty Start Date End Date Brenda Bruner [facility] [address] [address] PCP - General Internal Medicine 10/14/15 02/01/18 Brenda Bruner [facility] [address] [address] PCP - Payer 10/28/15 06/15/18 documented as of this encounter
--- OUTSIDE RECORDS SUMMARY | 2024-09-23 19:05 | XMS_ITS | Encounter Summary ---
Author Organization [facility] Address [address] [facility] [address] [place] [address] Care Team Providers Care Health Information Director Name Role Phone Brenda Bruner Primary Care Provider [phone] Brenda Bruner Unavailable [phone] Rufina Sims Md Primary Care Provider [phone] Rufina Sims Md Unavailable [phone] Poc, Not Required Pcp Or Unavailable Unavail able Poc, Not Assigned Pcp Or Primary Care Provider U Jaimee Landaverde Md Primary Care Provider [phone] Encounter Details Date Type Department Care Team (Late st Contact Info) Description 01/03/2016 [facility] General [address] [address] Gary Mart MD [facility] Division of Community Surgery [address] [facility] [address] [place] [address] Screening for colon cancer (Primary Dx); Colonic polyp Social History Tobacco Use Types Packs/Day Years [...] 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 Not on file documented as of this encounter Plan of Treatment Upcoming Encounters Date Type Department Care Team (Late st Contact Info) Description 04/11/2025 8:00 AM EDT Office Visit [facility] 2 [place] [address] Jaimee Espitia MD [address] [place] [phone] documented as of this encounter Procedures Procedure Name Priority Date/Time Associated Diagnosis Comments COLONOSCOPY - POLYPECTOMY Routine 01/09/2016 1:48 PM EDT Screening for colon cancer Colonic polyp documented in this encounter Visit Diagnoses Diagnosis Screening for colon cancer- Primary Special screening for malignant neoplasms, colon Colonic polyp Benign neoplasm of colon documented in this encounter Orders PROCEDURES Count Last Ordered Date First Orde red Date COLONOSCOPY - POLYPECTOMY 1 01/09/2016 documented in this encounter Care Teams Health Information Director Relationship Specialty Start Date End Date Brenda Bruner [facility] [address] [place] [address] PCP - General Internal Medicine 10/14/15 02/01/18 Brenda Bruner [facility] [address] [place] [address] PCP - Payer 10/28/15 06/15/18 Rufina Sims MD [address] [place] [address] PCP - General Internal Medicine 02/02/18 09/22/22 Rufina Smis MD [address] [place] [address] PCP - Payer 06/16/18 02/05/22 Poc, Not Required Pcp Or PCP - Payer 02/06/22 Poc, Not Assigned Pcp Or PCP - General 09/23/22 02/28/23 Jaimee Espitia MD [address] [place] [phone] PCP - General Family Medicine 03/01/23 documented as of this encounter
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
--- OUTSIDE RECORDS SUMMARY | 2024-09-23 19:05 | XMS_ITS | Encounter Summary ---
Author Organization [facility] Address [address] [facility] [address] [place] [address] Care Team Providers Care Auto Overhauler Name Role Phone Poc, Non [facility] Pcp Or Primary Care Provider Marycarmen vailable Encounter Details Date Type Department Care Team (Latest Contact Info) Description 10/23/2008 12:00 PM EDT Office Visit [address] [address] HYPERLIPIDEMIA (Primary Dx) Social [...] - Inhaled Oxygen Concentration - - Weight 100.2 kg (221 lb) 10/23/2008 12:00 PM EDT Height - - Body Mass Index 31.71 05/01/2008 2:00 PM EDT documented in this encounter Progress Notes * [address] - 10/23/2008 12:20 PM EDTPt (prefers quick meals, dislikes vegetables, lives with girlfriend) has gained 2# due to eating more sweets and continued excessive portions in evening. Pt has not re-tested lipid profile as he feels he has reverted back to old habits despite sustaining an 11# net weight loss (5%) since last fall. Estimated Body mass index is 31.71 kg/(m^2) as calculated from: Height of 5' 10 (1.778 m) as of 05/01/08 Weight of 221 lb (100.245 kg) as of this encounter Diet Recall: Breakfast (8-9a)- oatmeal + muffin + diet Coke Snack (10:30a)- fruit Snack (11-12p)- diet Coke + Breakfast FiberOne caramel Bar Lunch (1-2p)- pizza or ABP or sushi Snack - fruit or baby carrots Dinner (8p)- large portions - grilled tuna + healthy risotto + asparagus + squash + salad OR chicken Snack (9-10p)- cookies, chocolate or gum drops, fruit Beverage - 2-3 cans diet Coke or diet Alyx green tea, Crystal Light, water Supplements: GLUCOSAMINE/CHONDROITIN, Fish Oil, Men's MVI Alcohol: every 2-3 weeks (unspecified quantity) Exercise: hiking, 90% walking to work, plus walking dogs at night - joined gym 2xwk (swimming or cardio) Nutrition Plan: Resume balanced 3-meal + 2-3-snack pattern with emphasis on fruits and vegetables Evenly distribute intake during day (avoid Three Knife Trimmer eating at night) Goals of Medical Nutrition Therapy: improve lipid profile (goal TRIG <150mg/dl, LDL <130mg/dl, HDL >40mg/dl) weight loss (lose 10%) increase physical activity (above current level to increase HDL) Follow up 2 months with 1-week food records This 30 minute visit was devoted to medical nutrition therapy documented in this encounter Plan of Treatment Upcoming Encounters Date Type Department Care Team (Late st Contact Info) Description 04/11/2025 8:00 AM EDT Office Visit [facility] 2 [place] [address] Jaimee Espitia MD 2 [place] [address] documented as of this encounter Procedures Procedure Name Priority Date/Time Associated Diagnosis Comments MEDICAL NUTRITION THERAPY INDIV RE-ASSESS EACH 15 MIN Routine 10/23/2008 1:33 PM EDT Hyperlipidemia documented in this encounter Visit Diagnoses Diagnosis Hyperlipidemia- Primary Other and unspecified hyperlipidemia documented in this encounter Orders PROCEDURES Count Last Ordered Date First Orde red Date MEDICAL NUTRITION THERAPY IN DIV RE-ASSESS EACH 15 MIN 1 10/23/2008 documented in this encounter Care Teams Auto Overhauler Relationship Specialty Start Date End Date Poc, Non [facility] Pcp Or PCP - General 03/20/08 10/13/15 documented as of this encounter
--- OUTSIDE RECORDS SUMMARY | 2024-09-23 19:05 | XMS_ITS | Encounter Summary ---
Author Organization [facility] Address [address] [facility] [address] [place] [address] Care Team Providers Care Rack Cleaner Name Role Phone Brenda Bruner Primary Care Provider [phone] Brenda Bruner Unavailable [phone] Encounter Details Date Type Department Care Team (Late st Contact Info) Description 01/20/2016 Letter (Out) [facility] [address] [place] [address] Gary Mart MD [facility] Division of Community Surgery [address] [facility] [address] [place] [address] Social History Tobacco Use Types [...] 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 Not on file Not on file documented as of this encounter Plan of Treatment Upcoming Encounters Date Type Department Care Team (Late st Contact Info) Description 04/11/2025 8:00 AM EDT Office Visit [facility] 2 [place] [address] Jaimee Espitia MD 2 [place] [phone] documented as of this encounter Visit Diagnoses Not on filedocumented in this encounter Care Teams Rack Cleaner Relationship Specialty Start Date End Date Brenda Bruner [facility] [address] [place] [address] PCP - General Internal Medicine 10/14/15 02/01/18 Brenda Bruner [facility] [address] [place] [address] PCP - Payer 10/28/15 06/15/18 documented as of this encounter
--- OUTSIDE RECORDS SUMMARY | 2024-09-23 19:05 | XMS_ITS | Encounter Summary ---
Author Organization [facility] Address [address] [facility] [address] [place] [address] Care Team Providers Care Security Operations Specialist Name Role Phone Brenda Bruner Primary Care Provider [phone] Brenda Bruner Unavailable [phone] Reason for Visit * Reason Comments Poison Maude on arms and R side f amie near eye Encounter Details Date Type Department Care Team (Late st Contact Info) Description 03/16/2017 11:15 AM EDT Office Visit 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 21 tablet 03/16/2017 7 documented in this encounter Progress Notes * Long Sprague MD - 03/16/2017 11:15 AM EDT Chalino comes in 48 hours after exposure to poison maude. He's had multiple episodes before. Exam: He really has minimal rash at the present time he does have some erythema around his right eye is concerned that he will develop more of a rash there. Plan: We discussed his options. I will give him prescription for Medrol Dosepak even though I don'tthink he needs at the present time but currently so have it available to him. documented in this encounter Plan of Treatment Upcoming Encounters Date Type Department Care Team (Late st Contact Info) Description 04/11/2025 8:00 AM EDT Office Visit [place] 2 [place] [address] Jaimee Espitia MD 2 [place] [phone] documented as of this encounter Visit Diagnoses Diagnosis Poison maude- Primary Contact dermatitis and other eczema due to plants (except food) documented in this encounter Care Teams Security Operations Specialist Relationship Specialty Start Date End Date Brenda Bruner [facility] [address] [place] [address] PCP - General Internal Medicine 10/14/15 02/01/18 Brenda Bruner [facility] [address] [place] [address] PCP - Payer 10/28/15 06/15/18 documented as of this encounter
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
--- OUTSIDE RECORDS SUMMARY | 2024-09-23 19:05 | XMS_ITS | Encounter Summary ---
Author Organization [facility] Address [address] 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 Not on file Not on file documented as of this encounter Plan of Treatment Upcoming Encounters Date Type Department Care Team (Late st Contact Info) Description 04/11/2025 8:00 AM EDT Office Visit [facility] 2 [place] [phone] Jaimee Espitia MD 2 [place] [address] documented as of this encounter Visit Diagnoses Not on filedocumented in this encounter Care Teams Progressive Die Maker Relationship Specialty Start Date End Date Brenda Bruner [facility] [address] [address] PCP - General Internal Medicine 10/14/15 02/01/18 Brenda Bruner [facility] [address] [address] PCP - Payer 10/28/15 06/15/18 documented as of this encounter
--- OUTSIDE RECORDS SUMMARY | 2024-09-23 19:05 | XMS_ITS | Encounter Summary ---
Author Organization [facility] Address [address] [facility] [address] [place] [address] Care Team Providers Care Operations Vocational Instructor Name Role Phone Brenda Bruner Primary Care Provider [phone] Brenda Bruner Unavailable [phone] Reason for Visit * Specialty (Priority - w/in a Month ) - Closed Specialty Diagnoses / Procedures Referred By Valerie t Referred To Contact Orthopedics Diagnoses Chronic pain of both knees Chronic bilateral low back pain without sciatica Brenda Bruner [facility] [address] [address] Phone: tel: fax: [facility] [address] [place] [phone] Phone: tel: fax: Referral ID Status Reason Start Date Expiration Date Visits Re quested Visits Authorized [id number] Closed 02/17/2017 02/17/2018 3 3 Encounter Details Date Type Department Care Team (Latest Contact Info) Description 02/26/2017 4:00 PM EDT Office Visit [facility] 2 [place] [phone] Idris Sprague PA 2 [place] [address] Primary osteoarthritis of both knees (Primary Dx) [...] 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 Smoking status: Never Smoker ??? Smokeless tobacco: Not on file ??? Alcohol use Yes Comment: 3-4 per week ??? Drug use: No Comment: never IVDU ??? Sexual activity: Yes Partners: Female Comment: monogamous with Other Topics Concern ??? 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 He has been told in the past he would require knee replacement. He enjoys biking, hiking and running. Physical exam: 51-year-old male no acute distress alert and oriented ??3 Bilateral knees: Inspection is negative for rash erythema ecchymosis or effusion, range of motion is 0 to 1:30 bilaterally, 5 out of 5 quad strength, pseudo-laxity with valgus stress. Distal neurovascular exam normal Diagnostic imaging: Bilateral knee x-rays were obtained and show advanced medial compartment narrowing, moderate patellofemoral degenerative changes left greater than right, no acute fracture dislocation Assessment: Advanced bilateral knee osteoarthritis Plan: We discussed the treatment options including NSAIDs, cortisone injection, knee replacement. He would like to try diclofenac gel which was recently prescribed. He can follow-up p.r.n. for injection. This note was created with [employer] Dictation software. As a result, there may be errors within the document. Please contact us for clarification if necessary. documented in this encounter Plan of Treatment Upcoming Encounters Date Type Department Care Team (Late st Contact Info) Description 04/11/2025 8:00 AM EDT Office Visit [facility] 2 [place] [address] Jaimee Espitia MD [address] [place] [phone] documented as of this encounter Procedures Procedure Name Priority Date/Time Associated Diagnosis Comments REFERRAL TO ORTHOPEDICS Routine 02/26/2017 Chronic pain of both knees Chronic bilateral low back pain without sciatica documented in this encounter Results * REFERRAL TO ORTHOPEDICS (02/26/2017) us Brenda GUALLPA REFERRALS Final Result documented in this encounter Visit Diagnoses Diagnosis Primary osteoarthritis of both knees- Primary Primary localized osteoarthrosis, lower leg documented in this encounter Care Teams Operations Vocational Instructor Relationship Specialty Start Date End Date Brenda Bruner [facility] [address] [place] [address] PCP - General Internal Medicine 10/14/15 02/01/18 Brenda Bruner [facility] [address] [place] [address] PCP - Payer 10/28/15 06/15/18 documented as of this encounter
--- OUTSIDE RECORDS SUMMARY | 2024-09-23 19:05 | XMS_ITS | Encounter Summary ---
Author Organization [facility] Address [address] [facility] [address] [place] [address] Care Team Providers Care Metal Moulder Name Role Phone Brenda Bruner Primary Care Provider [phone] Brenda Bruner Unavailable [phone] Encounter Details Date Type Department Care Team (Late st Contact Info) Description 11/25/2017 8:20 AM EDT Office Visit [facility] [address] [place] [address] Marii Bonilla Pa-C [address] [place] [phone] Bilateral primary osteoarthritis of knee (Primary Dx) Social History Tobacco Use Types [...] 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 Presents today for repeat cortisone injections. Last cortisone injections were with Idris Sprague PA-C 04/06/2017. Patient given bilateral knee cortisone injections and he did well without any negative side effects. He will follow up in 3 months if needed. Prior to performing the procedure, a time-out was performed. The following components of the time out were conducted: ?? Verification of patient identity ?? Verification of the exact nature of procedure ?? Verification of surgical site and side ?? Review of allergies ?? Verification of verbal / signed informed consent After explaining the risks and benefits which included slight discoloration of the skin, facial flushing especially on cheeks, shrinkage of the fatty tissue beneath where the shot was given, pain, infection, and weakening of the tendons or tendon rupture, the patient elected to proceed with bilateral knee intra- articular steroid injections and verbal informed consent was obtained. A time- out was performed including patient medical identifiers, procedure and procedural side. The bilateral knees were prepped with alcohol. A total of 3 cc composed of 2 cc of 1% lidocaine and 1 cc of 40 mg Depo-Medrol was injected via lateral approach into the bilateral knees. A bandage was placed over the injec tion site. There were no complications. The patient tolerated the procedure well. The patient was instructed to call with symptoms of fever, chills, pain, swelling, or redness in the injected area. documented in this encounter Plan of Treatment Upcoming Encounters Date Type Department Care Team (Late st Contact Info) Description 04/11/2025 8:00 AM EDT Office Visit [facility] 2 [place] [phone] Jaimee Espitia MD 2 [place] [address] documented as of this encounter Procedures Procedure Name Priority Date/Time Associated Diagnosis Comments INJ ANESTH/STEROID -MAJOR JNT,BURSA,GANG Routine 11/25/2017 8:26 AM EDT Bilateral primary osteoarthritis of knee documented in this encounter Visit Diagnoses Diagnosis Bilateral primary osteoarthritis of knee- Primary documented in this encounter Orders PROCEDURES Count Last Ordered Date First Orde red Date INJ ANESTH/STEROID -MAJOR JNT,BURSA,GANG 1 11/25/2017 SUPPLIES Count Last Ordered Date First Orde red Date METHYLPREDNISOLONE 40 MG INJ 1 11/25/2017 documented in this encounter Care Teams Metal Moulder Relationship Specialty Start Date End Date Brenda Bruner [facility] [address] [place] [address] PCP - General Internal Medicine 10/14/15 02/01/18 Brenda Bruner [facility] [address] [place] [address] PCP - Payer 10/28/15 06/15/18 documented as of this encounter
--- OUTSIDE RECORDS SUMMARY | 2024-09-23 19:05 | XMS_ITS | Encounter Summary ---
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 should reevaluate the treatment regimen in patients with hemoglobin A1C values consistently >8 %. . ESTIMATED AVERAGE GLUCOSE 117 [facility] DEPARTMENT OF PATHOLOGY AND LAB MEDICINE Comment: Estimated Average Glucose A1C (%) ? mg/dl ?(95% CI) 5 ? 97 ?(76? 120) 6 ? 126 ?(100? 152) 7 ? 154 ?(123? 185) 8 ? 183 ?(147? 217) 9 ? 212 ?(170? 249) 10 ?240 ?(193? 282) 11 ?269 ?(217? 314) 12 ?298 ?(240? 347) Based on the ADAG formula: eAG = (28.7 X A1c) - 46.7 with the 95% confidence interval as reported in: Ramone CHRISTOPHER et al, Diabetes Care, 2008, 31(8);1476 02/17/2017 11:5 1 AM EDT 02/17/2017 4:01 PM EDT us Brenda Bruner GENERAL LAB Final Result Performing Organization Address City/[facility] Co de Phone Number [facility] DEPARTMENT PATHOLOGY AND LAB MEDICINE [address] [place] [address] * THYROID PEROXIDASE ANTIBODIES (02/17/2017 11:51 AM EDT) THYROID PEROXIDASE AB <10 0 - 35 IU/mL [facility] DEPARTMENT OF PATHOLOGY AND LAB MEDICINE 02/17/2017 11:5 1 AM EDT 02/17/2017 4:00 PM EDT us Brenda Bruner GENERAL LAB Final Result Performing Organization Address [facility] Co de Phone Number [facility] PATHOLOGY AND LAB MEDICINE [address] [place] [address] * TSH W/REFLEX (02/17/2017 11:51 AM EDT) TSH 1.60 0.28 - 4.10 mIU/L [facility] DEPARTMENT OF PATHOLOGY AND LAB MEDICINE 02/17/2017 11:5 1 AM EDT 02/17/2017 4:00 PM EDT us Brenda OLVERA LAB Final Result Performing Organization Address [facility] Co de Phone Number [facility] OF PATHOLOGY AND LAB MEDICINE [address] [place] [address] * ALT (SGPT) (02/17/2017 11:51 AM EDT) SGPT (ALT) 19 2 - 60 U/L [facility] DEP ARTMENT OF PATHOLOGY AND LAB MEDICINE 02/17/2017 11:5 1 AM EDT 02/17/2017 4:00 PM EDT Brenda Bruner GENERAL LAB Final Result Performing Organization Address [facility] Co de Phone Number [facility] PATHOLOGY AND LAB MEDICINE [address] [place] [address] documented in this encounter Visit Diagnoses Diagnosis Encounter for well adult exam with abnormal findings- Primary Chronic pain of both knees Chronic bilateral low back pain without sciatica Hyperlipidemia LDL goal <130 Other and unspecified hyperlipidemia Family history of diabetes mellitus (DM) Family history of diabetes mellitus Family history of thyroid disease in sister Prostate cancer screening encounter, options and risks discussed Special screening for malignant neoplasm of prostate Risk of exposure to Lyme disease Other specified personal history presenting hazards to health Obesity (BMI 30.0-34.9) Obesity, unspecified documented in this encounter Historical Medications * This list may reflect changes made after this encounter. Dextrin 3 gram/3.5 gram Powder Take 1 capful by mouth three times weekly 07/13/2017 Bacillus coagulans 250 million cell tablet, chewable Chew 1 tablet once daily as needed 12/29/2017 added in this encounter Care Teams Bag Sewer Relationship Specialty Start Date End Date Brenda Bruner [facility] [address] [place] [address] PCP - General Internal Medicine 10/14/15 02/01/18 Brenda Bruner [facility] [address] [place] [address] PCP - Payer 10/28/15 06/15/18 documented as of this encounter
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
--- OUTSIDE RECORDS SUMMARY | 2024-09-23 19:05 | XMS_ITS | Encounter Summary ---
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 Not on file Not on file documented as of this encounter Plan of Treatment Upcoming Encounters Date Type Department Care Team (Late st Contact Info) Description 04/11/2025 8:00 AM EDT Office Visit [place] [address] [place] [address] Jaimee Espitia MD [address] [place] [address] documented as of this encounter Visit Diagnoses Not on filedocumented in this encounter Care Teams Part Maker Relationship Specialty Start Date End Date Brenda Bruner [facility] [address] [place] [address] PCP - General Internal Medicine 10/14/15 02/01/18 Brenda Bruner [facility] [address] [place] [address] PCP - Payer 10/28/15 06/15/18 documented as of this encounter
--- OUTSIDE RECORDS SUMMARY | 2024-09-23 19:05 | XMS_ITS | Encounter Summary ---
Author Organization [facility] Address [address] [facility] [address] [place] [address] Care Team Providers Care Tape Making Machine Operator Name Role Phone Poc, Non [facility] Pcp Or Primary Care Provider Marycarmen vailable Reason for Visit * Referral (Routine) - Closed Specialty Diagnoses / Procedures Referred By Valerie valdez Referred To Contact Guillermo Neri Phone: tel: [address] Referral ID Status Reason Start Date Expiration Date Visits Re quested Visits Authorized [id number] Closed 05/01/2008 05/01/2009 3 3 Encounter Details Date Type Department Care Team (Latest Contact Info) Description 08/21/2008 12:00 PM EST Office Visit [place] [address] HYPERLIPIDEMIA (Primary [...] - Inhaled Oxygen Concentration - - Weight 99.3 kg (219 lb) 08/21/2008 12:00 PM EST Height - - Body Mass Index 31.42 05/01/2008 2:00 PM EDT documented in this encounter Progress Notes * [address] - 08/21/2008 12:30 PM ESTPt (prefers quick meals, dislikes vegetables, lives with girlfriend) lost 3.4# likely due to continued reduction in junk food plus eating out less. Body Mass Index is 31.49 It is based on height of 5' 10 on 05/01/2008 and weight of 219 lbs on 08/21/2008. Diet Recall: Breakfast (8-9a)- banana + oatmeal + ground flaxseed + diet Coke Snack (10:30a)- fruit Snack (11-12p)- diet Coke + Breakfast FiberOne caramel Bar Lunch (1-2p)- salad or soup Snack - fruit or baby carrots Dinner (8p)- grilled tuna + healthy risotto + asparagus + squash + salad OR chicken Snack (9-10p)- fruit pudding Beverage - 2-3 cans diet Coke or diet Alyx green tea, water Supplements: GLUCOSAMINE/CHONDROITIN, Fish Oil, Men's MVI Alcohol: more than 2 drinks/day (3-6 beers at once an then none for a while) Exercise: mountain biker (2xwk, 60-90min), 90% walking to work, plus walking dogs at night - considering a [facility] gym membership Nutrition Plan: Continue 3-meal + 3-snack pattern with emphasis on fruits and vegetables Find winter activity Goals of Medical Nutrition Therapy: improve lipid profile weight loss increase physical activity Follow up 2 months with 1-week food records This 30 minute visit was devoted to medical nutrition therapy documented in this encounter Plan of Treatment Upcoming Encounters Date Type Department Care Team (Late st Contact Info) Description 04/11/2025 8:00 AM EDT Office Visit [facility] 2 [place] [address] Jaimee Espitia MD [address] [place] [address] documented as of this encounter Procedures Procedure Name Priority Date/Time Associated Diagnosis Comments MEDICAL NUTRITION THERAPY INDIV RE-ASSESS EACH 15 MIN Routine 08/21/2008 1:42 PM EST Hyperlipidemia documented in this encounter Visit Diagnoses Diagnosis Hyperlipidemia- Primary Other and unspecified hyperlipidemia documented in this encounter Orders PROCEDURES Count Last Ordered Date First Orde red Date MEDICAL NUTRITION THERAPY IN DIV RE-ASSESS EACH 15 MIN 1 08/21/2008 documented in this encounter Care Teams Tape Making Machine Operator Relationship Specialty Start Date End Date Poc, Non [facility] Pcp Or PCP - General 03/20/08 10/13/15 documented as of this encounter
--- OUTSIDE RECORDS SUMMARY | 2024-09-23 19:05 | XMS_ITS | Encounter Summary ---
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 Not on file Not on file documented as of this encounter Plan of Treatment Upcoming Encounters Date Type Department Care Team (Late Contact Info) Description 04/11/2025 8:00 AM EDT [facility] [place] [address] [place] [phone] Jaimee Espitia MD [address] [place] [address] documented as of this encounter Visit Diagnoses Not on filedocumented in this encounter Care Teams Sales Representative Public Utilities Relationship Specialty Start Date End Date Brenda [facility] [address] [address] PCP - General Internal Medicine 10/14/15 02/01/18 Brenda Bruner [facility] [address] [address] PCP - Payer 10/28/15 06/15/18 documented as of this encounter
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
--- OUTSIDE RECORDS SUMMARY | 2024-09-23 19:05 | XMS_ITS | Encounter Summary ---
Author Organization [facility] Address [address] [place] [address] Care Team Providers Care Sports Marketer Name Role Phone Poc, Non [facility] P[facility] Or Primary Care Provider Marycarmen vailable Encounter Details Date Type Department Care Team (Latest Contact Info) Description 05/01/2008 2:00 PM EDT Office Visit [address] [address] HYPERLIPIDEMIA (Primary [...] - Inhaled Oxygen Concentration - - Weight 105.9 kg (233 lb 6.4 oz) 05/01/2008 2:00 PM EDT Height 177.8 cm (5' 10) 05/01/2008 2:00 PM EDT Body Mass Index 33.49 05/01/2008 2:00 PM EDT documented in this encounter Progress Notes * 05/01/2008 2:00 PM EDTDr. Non [facility] Thank you for referring your patient to the nutrition department. Body Mass Index is 33.56 It is based on height of 5' 10 and weight of 233.4 lbs on 05/01/2008. 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 Pt dislikes vegetables. 24 hr Recall: Breakfast (8-9a)- banana + 16oz Alyx diet green tea Snack (10:30a)- pop tart (vending machine) or ABP bagel/muffin Snack (11-12p)- diet Coke + Breakfast FiberOne caramel Bar Lunch ()- Lean Cuisine panani Snack - pop tart Dinner (8p)- chicken wings (take out) Snack ()- [place] 08/17 cannoli Beverage - diet Coke and diet Tea, water Nutrition Assessment: high fat/saturated fat intake, high intake of fried foods, high fat desserts on a regular basis, low fiber intake, low intake of fruits and vegetables, high carbohydrate intake and 60% of calories consumed after 6 PM Alcohol: more than 2 drinks/day (3-6 beers at once an then none for a while) Exercise: mountain biker (2xwk, 60-90min), 50% walking to work Patient appears ready for change: not sure - pt appeared overwhelmed by the number of dietary infractions contributing to his dyslipidemia. Nutrition Plan: Patient was counseled according to ADA Medical Nutrition protocol for dyslipidemia. Education provided on: Low fat meal planning and recipes, Heart healthy fats, Avoidance of trans fats, Portion control of foods, Fiber guidelines, Exercise recommendations, Recommended shopping list,Behavior change techniques and Recommended educational material The following education material was used: Lipid Profile results were reviewed and a copy was provided. Menu planning guidelines for a heart healthy diet were provided and reviewed. Foods to be chosen for this meal plan in the appropriate portions were outlined. In addition, foods to be avoided were reviewed. A guideline of a dinner plate was reviewed and given to the patient to help visualize portion sizes. TRUTH ABOUT CHO - A guideline distinguishing healthy from unhealthy CHO based on fiber content was reviewed and provided. Goals of Medical Nutrition Therapy: improve lipid profile weight loss increase physical activity Follow up 6 weeks with 1-week food records This 45 minute visit was devoted to medical nutrition therapy documented in this encounter Plan of Treatment Upcoming Encounters Date Type Department Care Team (Late st Contact Info) Description 04/11/2025 8:00 AM EDT Office Visit [facility] [address] [place] [id number] Jaimee Espitia MD [address] [place] [address] documented as of this encounter Procedures Procedure Name Priority Date/Time Associated Diagnosis Comments MEDICAL NUTRITION THERAPY INDIV INIT EACH 15 MIN Routine 05/01/2008 4:59 PM EDT Hyperlipidemia documented in this encounter Visit Diagnoses Diagnosis Hyperlipidemia- Primary Other and unspecified hyperlipidemia documented in this encounter Orders PROCEDURES Count Last Ordered Date First Orde red Date MEDICAL NUTRITION THERAPY IN DIV INIT EACH 15 MIN 1 05/01/2008 documented in this encounter Care Teams Sports Marketer Relationship Specialty Start Date End Date Poc, Non [facility] Or PCP - General 03/20/08 10/13/15 documented as of this encounter
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
[2024-09-23 19:44] VITALS: BP 135/82; PULSE 77; RESP 15; O2SAT 94
[2024-09-23] MEDS: Bacitracin 1 PACKET TP (19:44)
== END 2024-09-23 20:11 | disposition home or self-care (01) ==
PROVIDERS: Emergency Provider Student in an Organized Health Care Education/Training Program
DX: S01.312A Laceration without foreign body of left ear, initial encounter (principal); V17.4XXA Pedal cycle driver injured in collision with fixed or stationary object in traffic accident, initial encounter; Y92.482 Bike path as the place of occurrence of the external cause; Y93.55 Activity, bike riding
CPT/HCPCS: 12011; 99284; 70450; 72125; J2003